=== PATIENT | male | born 1980 | race Two or more races ===

== ENCOUNTER 2025-01-11 16:32 | Inpatient (IN) | payer BC, OTHER ==
[~2025-01-11] VITALS: Ht 172.7 cm; Wt 93.9 kg
--- NOTE | 2025-01-11 17:39 | DVH ---
CLINICAL HISTORY: weakness TECHNIQUE: Helical scanning was performed of the head from the skull base to the vertex. Multiplanar reconstructions were performed. This exam was performed according to our departmental dose optimizat ion program. Up-to-date CT equipment and radiation dose reduction techniques are utilized as appropri ate. CTDI 55 DLP 992 COMPARISON: None FINDINGS: There is no evidence for acute intracranial hemorrhage, acute ischemic changes, mass, mass effect, or extra-axial fluid collection. There is no hydrocephalus or midline shift. There is no effacement of the cerebral sulci and basal subarachnoid cisterns. The damico-white matter differentiation is well kelton ntained. The imaged paranasal sinuses are clear. IMPRESSION: NO ACUTE INTRACRANIAL ABNORMALITY SEEN.
--- NOTE | 2025-01-11 17:41 | DVH ---
EXAM: XY CHEST PORTABLE HISTORY: weakness TECHNIQUE: 1 view of the chest COMPARISON: None FINDINGS/IMPRESSION: LUNGS: No pleural effusion, consolidation, or pneumothorax. MEDIASTINUM: Unremarkable. BONES: No acute osseous abnormality. OTHER: None.
[2025-01-11 17:43] LABS: Hematocrit 53.7 % (41.0-53.0); Hemoglobin 17.8 g/dL (13.5-17.5); Mean Corpuscular Hemoglobin 24.8 pg (28.0-32.0); Mean Corpuscular Volume 74.6 fL (80.0-100.0); Nucleated Red Blood Cells % 0.4 %
[2025-01-11 17:48] LABS: Chloride 107 mmol/L (98-107); Potassium 4.0 mmol/L (3.5-5.1); Sodium 143 mmol/L (136-145)
[2025-01-11 17:49] LABS: Anion Gap 10 (5-15); Carbon Dioxide 26 mmol/L (20-31)
[2025-01-11 17:50] LABS: Calcium 9.1 mg/dL (8.7-10.4)
[2025-01-11 17:54] LABS: Blood Urea Nitrogen 17 mg/dL (9-23); Glucose 98 mg/dL (74-106)
--- NOTE | 2025-01-11 17:56 | ED.PDOC ---
Altered Mental Status HPI Comments 44 year old male presents to the ED with a chief complaint of ALOC onset 3 days. 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 Patient states he is confused, does not remember things. Denies any PMHx as well as head injury, fall, LOC, nausea, vomiting, diarrhea, chest pain, fever, chills, dysuria, hematuria. No other symptoms or modifying factors present at this time. Chief Complaint: Confusion Time Seen by MD: 17:25 Reviewed Notes: Medications, Allergies Allergies: Coded Allergies: NO KNOWN ALLERGIES (Unverified , 01/11/25) Information Source: Patient, Spouse Mode of Arrival: Ambulatory Severity: Moderate Timing: Days Duration: Since onset Prehospital treatment: None Quality: Change in Behavior, Confusion Recent: None History of: None Past Medical History PAST MEDICAL HISTORY: Denies Surgical History: Denies all surgeries Family History Family History: Reviewed,noncontributory to illness, No family hx of Cancer, No family hx of DM, No family hx of Heart lisandra, No family hx of HTN, No family hx ofKidney lisandra, No family hx of Liver lisandra, No family hx of Lung lisandra, No family hx of Stroke Social History Smoker: Non-Smoker Alcohol: Denies ETOH Use Drugs: Denies Drug Use Lives In: Home Constitutional: denies: chills, diaphoresis, fatigue, fever, malaise, sweats, weakness, others EENTM: denies: blurred vision, double vision, ear bleeding, ear discharge, ear drainage, ear pain, ear ringing, eye pain, eye redness, hearing loss, mouth pain, mouth swelling, nasal discharge, nose bleeding, nose congestion, nose pain, photophobia, tearing, throat pain, throat swelling, voice changes, others Respiratory: denies: cough, hemoptysis, orthopnea, SOB at rest, shortness of breath, SOB with excertion, stridor, wheezing, others Cardiovascular: denies: chest pain, dizzy spells, diaphoresis, Dyspnea on exertion, edema, irregular heart beat, left arm pain, lightheadedness, palpitations, PND, syncope, others Gastrointestinal: denies: abdomen distended, abdominal pain, blood streaked bowels, constipated, diarrhea, dysphagia, difficulty swallowing, hematemesis, melena, nausea, poor appetite, poor fluid intake, rectal bleeding, rectal pain, vomiting, others Genitourinary: denies: burning, dysuria, flank pain, frequency, hematuria, incontinence, penile discharge, penile sore, pain, testicle pain, testicle swelling, urgency, others Neurological: reports: others (confused); denies: dizziness, fainting, headache, left sided numbness, left sided weakness, numbness, paresthesia, pre- existing deficit, right sided numbness, right sided weakness, seizure, speech problems, tingling, tremors, weakness Musculoskeletal: denies: back pain, gout, joint pain, joint swelling, muscle pain, muscle stiffness, neck pain, others Integumetry: denies: bruises, change in color, change in hair/nails, dryness, laceration, lesions, lumps, rash, wounds, others Allergic/Immunocompromised: denies: Difficulty Healing, Frequent Infections, Hives, Itching, others Hematologic/Lymphatic: denies: anemia, blood clots, easy bleeding, easy brui sing, swollen glands, others Endocrine: denies: excessive hunger, excessive sweating, excessive thirst, ex cessive urination, flushing, intolerance to cold, intolerance to heat, unexplained weight gain, unexplained weight loss, others Psychiatric: reports: others (confused); denies: anxiety, bipolar disorder, depression, hopeless, panic disorder, schizophrenia, sleepless, suicidal All Other Systems: Reviewed and Negative Physical Exam General Appearance: Normal HEENT: Normal ENT Inspection, Pharynx Normal, TMs Normal Neck: Full Range of Motion, Non-Tender, Normal, Normal Inspection Respiratory: Chest Non-Tender, Lungs Clear, No Accessory Muscle Use, No Respiratory Distress, Normal Breath Sounds Cardiovascular: No Edema, No JVD, No Murmur, No Gallop, Normal Peripheral Pulses, Regular Rate/Rhythm Breast Exam: Deferred Gastrointestinal: No Organomegaly, Non Tender, No Pulsatile Mass, Normal Bowel Sounds, Soft Genitalia: Deferred Pelvic: Deferred Rectal: Deferred Extremities: No calf tenderness, Normal capillary refill, Normal inspection, Normal range of motion, Non-tender, No pedal edema Musculoskeletal : Apperance: Normal Neurologic: Alert, 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 Was a procedure done?: No Differential Diagnosis (ALOC) Differential Diagnosis: Dehydration, Hypoglycemia, Hypoxemia, Seizure, Closed Head Injury, ETOH Intoxication X-Ray, Labs, Meds, VS Vital Signs Date Time Temp Pulse Resp B/P (MAP) Pulse Ox O2 Delivery O2 Flow Rate FiO2 01/11/25 16:37 98.1 89 18 144/96 98 98.1 Lab Test 01/11/25 17:13 Range/Units White Blood Count 4.7 4.4-10.8 10^3/uL Red Blood Count 7.20 H 4.5-5.90 10^6/uL Hemoglobin 17.8 H 13.5-17.5 g/dL Hematocrit 53.7 H 41.0-53.0 % Mean Corpuscular Volume 74.6 L 80.0-100.0 fL Mean Corpuscular Hemoglobin 24.8 L 28.0-32.0 pg Mean Corpuscular Hemoglobin Concent 33.2 32.0-36.0 g/dL Red Cell Distribution Width 18.0 H 11.8-14.3 % Platelet Count 198 140-450 10^3/uL Mean Platelet Volume 7.9 6.9-10.8 fL Neutrophils (%) (Auto) 62.1 37.0-80.0 % Lymphocytes (%) (Auto) 25.5 10.0-50.0 % Monocytes (%) (Auto) 9.1 0.0-12.0 % Eosinophils (%) (Auto) 2.9 0.0-7.0 % Basophils (%) (Auto) 0.4 0.0-2.0 % Neutrophils # (Auto) 2.9 1.6-8.6 10 ^3/uL Lymphocytes # (Auto) 1.2 0.4-5.4 10 ^3/uL Monocytes # (Auto) 0.4 0-1.3 10 ^3/uL Eosinophils # (Auto) 0.1 0-0.8 10 ^3/uL Basophils # (Auto) 0 0-0.2 10 ^3/uL Nucleated Red Blood Cells 0.4 % Sodium Level 143 136-145 mmol/L Potassium Level 4.0 3.5-5.1 mmol/L Chloride Level 107 98-107 mmol/L Carbon Dioxide Level 26 20-31 mmol/L Anion Gap 10 5-15 Blood Urea Nitrogen 17 9-23 mg/dL Creatinine 1.53 H 0.700-1.30 mg/dL Glomerular Filtration Rate Calc 57 >90 mL/min BUN/Creatinine Ratio Pending Serum Glucose 98 74-106 mg/dL Calcium Level 9.1 8.7-10.4 mg/dL Troponin I High Sensitivity 44 </=54 ng/L Plasma/Serum Blood Alcohol < 3.0 <10 mg/dL Time of 1ST Reevaluation: 17:55 Reevaluation 1ST: Unchanged Patient Education/Counseling: Diagnosis, Treatment, Prognosis Family Education/Counseling: Diagnosis, Treatment, Prognosis SEPSIS Sepsis Screen Date sepsis recognized/suspect: Jan 11, 2025 Time Sepsis recognized/suspect: 1636 Recent Procedure: No On Antibiotic Therapy: No Respiratory Rate >20: No Heart Rate >90: No Temp<36 C (96.8 F) or >38.3 C: No SBP <90 or MAP <65 mmHG: No New Acute Mental Status Change: No Is the patient on CPAP, BIPAP,: No Physician Orders Blood Alcohol (01/11/25 16:59) Basic Metabolic Panel (01/11/25 16:59) Troponin-I Hs (01/11/25 16:59) Urinalysis (01/11/25 16:59) Chest Portable (01/11/25 16:59) Head Without Contrast (01/11/25 16:59) Drug Screen (01/11/25 16:59) Troponin-I Hs (01/11/25 17:59) Troponin-I Hs (01/11/25 19:59) Vital Signs Date Time Temp Pulse Resp B/P (MAP) Pulse Ox O2 Delivery O2 Flow Rate FiO2 01/11/25 16:37 98.1 89 18 144/96 98 98.1 Laboratory Tests Test 01/11/25 17:13 White Blood Count 4.7 10^3/uL (4.4-10.8) Departure 1 Departure Time of Disposition: 17:57 (Patient with a worsening altered mental status concerning for TIA versus CVA versus electrolyte abnormality. We will we will admit patient for further workup and expert consultation) Impression: Primary Impression: Acute metabolic encephalopathy Additional Impression: Altered mental status Disposition: 09 ADMITTED INPATIENT Admit to: Med Surg Condition: Serious Critical Care Note Critical Care Time?: Yes Critical care comment: Concern for CVA Authorized and Performed by: Aaron Dejesus MD Total critical care time: Approximately 38 minutes Due to a high probability of clinically significant, life threatening deter ioration, the patient required my highest level of preparedness to intervene emergently and I personally spent this critical care time directly and personally managing the patient. This critical care time included obtaining a history; examining the patient; pulse oximetry; ordering and review of studies; arranging urgent treatment with development of a management plan; evaluation of patient's response to treatment; frequent reassessment; and, discussions with other providers. This critical care time was performed to assess and manage the high probability of imminent, life-threatening deterioration that could result in multi-organ fa ilure. It was exclusive of separately billable procedures and treating other patients and teaching time. Please see my other sections and the rest of the note for further information on patient assessment and treatment. Stability Stability form required: No I personally scribed for AARON DEJESUS MD ([email or web address]) on 01/11/25 at 17:56. Electronically submitted by Glory Sharpe ([email or web address]). AARON DEJESUS MD Jan 11, 2025 17:56
[2025-01-11 17:57] LABS: BUN/Creatinine Ratio 11.1 (10.0-20.0)
[2025-01-11 19:40] VITALS: PULSE 71; RESP 14; O2SAT 96
[2025-01-11 22:08] LABS: Amphetamine Screen, Urine Neg (NEGATIVE); Barbiturate Scree,Urine Neg (NEGATIVE); Benzodiazephine Screen, Urine Neg (NEGATIVE); Cannabinoid Screen, Urine Neg (NEGATIVE); Cocaine Screen, Urine Neg (NEGATIVE); Opiate Scree,Urine Neg (NEGATIVE); Phencyclidine Screen, Urine Neg (NEGATIVE)
[2025-01-11 22:10] LABS: Urine Protein, UAD Negative (Negative)
[2025-01-11 23:15] LABS: Alkaline Phosphatase 51.0 U/L (46-116); Magnesium 2.0 mg/dL (1.6-2.6); Total Protein 7.4 g/dL (5.7-8.2)
[2025-01-11 23:16] LABS: Alanine Aminotransferase 46.0 U/L (7-40); Albumin 4.4 g/dL (3.2-4.8); Bilirubin, Direct 0.1 mg/dL (<0.3); Bilirubin, Total 0.5 mg/dL (0.2-1.0)
[2025-01-11 23:17] LABS: INR 1.08 (0.9-1.15); Partial Thromboplastin Time 29.1 SEC (24.5-34.5); Prothrombin Time 11.4 sec (9.3-11.8)
[2025-01-12] MEDS: SODIUM CHLORIDE 0.9% 1,000 ML IV SCH (02:29)
--- NOTE | 2025-01-12 04:08 | DVHHPRES ---
History of Present Illness Resident Creating Document: LAVINIA CARRION History of Present Illness Mr. Champagne is a 44-year-old male with prior medical history of HIV on Biktarvy (reports undetectable viral), who presents today with chief complaint of confusion. The patient states that for the last 2-3 days he has had malaise, decreases in his memory, difficulty putting words together, and that he fell twice at home due to his "legs giving out on him, "with the most recent fall being last night. Additionally refers febrile sensation for 3 days, daily headaches, dry heaving, and insomnia. He reports he was recently treated for a sinus infection 2 weeks ago. Due to persistence of symptoms, he presented to the Emergency department for medical attention. On evaluation in the ED, patient was hypertensive, with other vital signs within normal range. EKG showed Sinus rhythm with borderline NC prolongation. Initial labs the hemoglobin 17.8 and hematocrit 53.7, and creatinine 1.53. Chest x-ray showed no acute disease. Head CT shows no acute intracranial abnormality seen. The patient was admitted for further workup and monitoring. Infectious disease: HIV Past Medical History Currently on TRT due to low testosterone Past Surgical History: None Family History: None Smoke: No ALCOHOL: rare Drugs: None Lives: with Family Domestic Violence: Neg Review of Systems Review of Systems Constitutional: Refers malaise, Denies weight loss, fever and chills. HEENT: Denies changes in vision and hearing. Respiratory: Denies shortness of breath and cough Cardiovascular: Denies chest discomfort or palpitations GI: Denies abdominal distention, abdominal pain, diarrhea : Denies dysuria and urinary frequency. Musculoskeletal: denies Skin: Denies rash and pruritus. Neurological: Refers decreases in memory and numbness in left hand, denies dizziness headache vision or hearing problems Allergies: Coded Allergies: NO KNOWN ALLERGIES (Unverified , 01/11/25) Medications Current Medications Medications Dose Ordered Sig/Taisha Route Start Time Stop Time Status Last Admin Dose Admin Patient Own Medication 1 DAILY PO 01/12/25 10:00 UNV Ibuprofen 600 mg Q8HP PRN PO 01/12/25 00:45 Ondansetron HCl 4 mg Q4HPRN PRN IV 01/12/25 02:15 Sodium Chloride 1,000 ml @ 100 mls/hr Q10H IV 01/12/25 02:15 01/12/25 02:29 100 MLS/HR Exam Vital Signs Vital Signs Date Time Temp Pulse Resp B/P (MAP) Pulse Ox O2 Delivery O2 Flow Rate FiO2 01/12/25 04:05 65 18 121/84 (96) 93 01/12/25 00:34 98.8 98.8 01/11/25 19:40 Room Air* 0 21 Exam General: The patient alert and oriented in person place and time. Patient following commands HEENT: Normocephalic, atraumatic, normal reactive pupils, EOM intact, pink conjunctiva, pink moist mucous membrane Respiratory/pulmonary: Bilateral chest expansion, no pain on palpation of chest wall, clear lungs bilaterally, vesicular murmurs present in almost all lung dyer, no associated crackles or wheezes. Cardiovascular: Normal RRR, normal S1 and S2, no murmurs Abdomen: Abdomen nondistended, normal bowel sounds, soft, there is no pain to palpation in any of the abdominal quadrants, no palpable masses. Extremities: No deformities, there is no peripheral edema present at the lower extremities, normal pulses Skin: No rashes or pruritus, there is no sacral edema present at this time. Neurological: Intact cranial nerves with no focal neurologic deficits, strength in bilateral upper and lower extremities 5/5, sensation is intact Labs/Xrays Labs Test 01/11/25 22:55 01/11/25 21:00 01/11/25 20:27 01/11/25 17:13 Range/Units Lactic Acid Level 1.1 0.4-2.0 mmol/L Urine Color Yellow Yellow Urine Clarity Clear Clear Urine pH 5.5 5.0-9.0 Urine Specific [place] 1.031 1.001-1.035 Urine Protein Negative Negative Urine Ketones +1 Negative Urine Blood Negative Negative /uL Urine Nitrite Negative Negative Urine Bilirubin Negative Negative Urine Urobilinogen Normal Negative mg/dL Urine Leukocyte Esterase Negative Negative /uL Urine RBC None seen 0 - 3 /hpf Urine Microscopic WBC 1 0-3 /HPF Urine Squamous Epithelial Cells None seen <5 /hpf Urine Bacteria None seen None Seen /hpf Urine Mucus Few None Seen Urine Glucose Normal Normal mg/dL Urine Opiates Screen Neg NEGATIVE Urine Fentanyl Screen Neg NEGATIVE Urine Barbiturates Screen Neg NEGATIVE Urine Phencyclidine Screen Neg NEGATIVE Urine Amphetamines Screen Neg NEGATIVE Urine Benzodiazepines Screen Neg NEGATIVE Urine Cocaine Screen Neg NEGATIVE Urine Cannabinoids Screen Neg NEGATIVE Prothrombin Time 11.4 9.3-11.8 sec Prothrombin Time INR 1.08 0.9-1.15 Activated Partial Thromboplast Time 29.1 24.5-34.5 SEC D-Dimer, Quantitative 0.41 0.0-0.49 mg/L FEU Troponin I High Sensitivity 39 </=54 ng/L White Blood Count 4.7 4.4-10.8 10^3/uL Red Blood Count 7.20 H 4.5-5.90 10^6/uL Hemoglobin 17.8 H 13.5-17.5 g/dL Hematocrit 53.7 H 41.0-53.0 % Mean Corpuscular Volume 74.6 L 80.0-100.0 fL Mean Corpuscular Hemoglobin 24.8 L 28.0-32.0 pg Mean Corpuscular Hemoglobin Concent 33.2 32.0-36.0 g/dL Red Cell Distribution Width 18.0 H 11.8-14.3 % Platelet Count 198 140-450 10^3/uL Mean Platelet Volume 7.9 6.9-10.8 fL Neutrophils (%) (Auto) 62.1 37.0-80.0 % Lymphocytes (%) (Auto) 25.5 10.0-50.0 % Monocytes (%) (Auto) 9.1 0.0-12.0 % Eosinophils (%) (Auto) 2.9 0.0-7.0 % Basophils (%) (Auto) 0.4 0.0-2.0 % Neutrophils # (Auto) 2.9 1.6-8.6 10 ^3/uL Lymphocytes # (Auto) 1.2 0.4-5.4 10 ^3/uL Monocytes # (Auto) 0.4 0-1.3 10 ^3/uL Eosinophils # (Auto) 0.1 0-0.8 10 ^3/uL Basophils # (Auto) 0 0-0.2 10 ^3/uL Nucleated Red Blood Cells 0.4 % Sodium Level 143 136-145 mmol/L Potassium Level 4.0 3.5-5.1 mmol/L Chloride Level 107 98-107 mmol/L Carbon Dioxide Level 26 20-31 mmol/L Anion Gap 10 5-15 Blood Urea Nitrogen 17 9-23 mg/dL Creatinine 1.53 H 0.700-1.30 mg/dL Glomerular Filtration Rate Calc 57 >90 mL/min BUN/Creatinine Ratio 11.1 10.0-20.0 Serum Glucose 98 74-106 mg/dL Hemoglobin A1c 5.7 <5.7 % A1C Calcium Level 9.1 8.7-10.4 mg/dL Phosphorus Level 3.9 2.4-5.1 mg/dL Magnesium Level 2.0 1.6-2.6 mg/dL Total Bilirubin 0.5 0.2-1.0 mg/dL Direct Bilirubin 0.1 <0.3 mg/dL Aspartate Amino Transferase (AST) 38 13-40 U/L Alanine Aminotransferase (ALT) 46 H 7-40 U/L Alkaline Phosphatase 51 46-116 U/L Total Protein 7.4 5.7-8.2 g/dL Albumin 4.4 3.2-4.8 g/dL Vitamin B12 Level 462 211-911 pg/mL Thyroid Stimulating Hormone (TSH) 1.86 0.55-4.78 uIU/mL Plasma/Serum Blood Alcohol < 3.0 <10 mg/dL SEPSIS Sepsis Screen Date sepsis recognized/suspect: Jan 11, 2025 Time Sepsis recognized/suspect: 1939 Recent Procedure: No On Antibiotic Therapy: No Respiratory Rate >20: No Heart Rate >90: No Temp<36 C (96.8 F) or >38.3 C: No SBP <90 or MAP <65 mmHG: No New Acute Mental Status Change: Yes (Forgetfulness since friday) Is the patient on CPAP, BIPAP,: No Physician Orders Electrocardigram (01/11/25 22:39) Complete Blood Count (01/12/25 04:00) Basic Metabolic Panel (01/12/25 04:00) Carotid Duplx W Color Dop (01/12/25 00:45) Brain Head Wo Contrast (01/12/25 00:45) Patients Own Medication (01/12/25 10:00) Ibuprofen Tablet (Motrin Tablet) (01/12/25 00:45) Allergies (01/12/25 00:45) Code Status (01/12/25 00:45) Condition: Stable (01/12/25 00:45) Stat Ekg For Chest Pain (01/12/25 00:45) Notify Md Of Changes From Base (01/12/25 00:45) Emergency Dysrhythmia Protocol (01/12/25 00:45) Rhythm Strips Once Every Shift (01/12/25 00:45) Regular Diet (01/12/25 Breakfast) Cd4/Cd8 Ratio Profile (01/12/25 02:08) Ondansetron Hcl (Zofran) (01/12/25 02:15) Sodium Chloride 0.9% (01/12/25 02:15) Admit (01/12/25 02:11) Echo 2d Mode Cardiac Dop (01/12/25 02:12) Vital Signs Date Time Temp Pulse Resp B/P (MAP) Pulse Ox O2 Delivery O2 Flow Rate FiO2 01/12/25 04:05 65 18 121/84 (96) 93 01/12/25 02:14 61 16 136/92 (107) 93 01/12/25 00:34 98.8 70 19 130/86 (101) 98 98.8 01/12/25 00:30 70 01/11/25 22:02 75 14 113/77 (89) 97 Laboratory Tests Test 01/11/25 17:13 01/11/25 22:55 White Blood Count 4.7 10^3/uL (4.4-10.8) Lactic Acid Level 1.1 mmol/L (0.4-2.0) Medications Medications Dose Ordered Sig/Taisha Route Start Time Stop Time Status Last Admin Dose Admin Sodium Chloride 1,000 ml @ 100 mls/hr Q10H IV 01/12/25 02:15 01/12/25 02:29 100 MLS/HR Assessment/Plan Assessment/Plan Assessment and Plan: Possible Metabolic Encephalopathy, rule out Rule out space occupying lesion due to HIV - Head CT completed with no acute intracranial pathology - UDS negative - Blood alcohol level: <0.3 - NS maintenance 100 cc/hour IV - Zofran 4 mg Q 4 hours p.r.n. IV - ibuprofen 600 mg p.o. Q 8 p.r.n. - Ordered brain MRI Possible CRISTHIAN on CKD likely due to VMN/ hemodynamically mediated - Monitor renal function - Avoid nephrotoxic drugs HIV - Continue Biktarvy - CD4/CD8 ratio pending Obesity. 31.6 kg/m2 - I have counseled the patient on healthy lifestyle modifications. Diet: Regular DVT prophylaxis: Not indicated as patient is ambulatory GI prophylaxis: Not indicated Case discussed with Dr. Yepez Goals of care discussed with the patient for over 25 minutes. Full code. Plan discussed with: Patient, Other (Nurses) My Orders Orders - LAVINIA CARRION RESIDENT Procedure Category Date Status Time Electrocardigram EKG 01/11/25 Logged 22:39 Complete Blood Count LAB 01/12/25 Logged 04:00 Basic Metabolic Panel LAB 01/12/25 Logged 04:00 Carotid Duplx W Color US 01/12/25 Logged DOP 00:45 Brain Head Wo Contrast MRI 01/12/25 Logged 00:45 Patients Own PHA 01/12/25 Pending Medication 10:00 Ibuprofen Tablet PHA 01/12/25 In Process (Motrin Tablet) 00:45 Allergies YOSEF 01/12/25 In Process 00:45 Code Status CODE 01/12/25 Transmitted 00:45 Condition: Stable YOSEF 01/12/25 In Process 00:45 Stat Ekg For Chest [facility] 01/12/25 In Process Pain 00:45 Notify Md Of Changes [facility] 01/12/25 In Process From Base 00:45 Emergency Dysrhythmia [facility] 01/12/25 In Process Protocol 00:45 Rhythm Strips Once [facility] 01/12/25 In Process Every Shift 00:45 Regular Diet DIET 01/12/25 Transmitted Breakfast Date of Service: Jan 12, 2025 Billing Provider: CARLOS YEPEZ MD Common Visit Codes: 06309-[id number] INP/OBS CARE (HIGH) Secondary Visit Codes: [id number] CARE PLAN 30 MINUTES LAVINIA CARRION RESIDENT Jan 12, 2025 04:08 SYBIL SOUZA RESIDENT Jan 12, 2025 06:50
[2025-01-12 04:50] VITALS: BP 116/73; PULSE 64; RESP 18; TEMP 98.8; TEMP 98.9; O2SAT 94
[2025-01-12] MEDS: IBUPROFEN 600 MG TAB PO PRN (05:18)
[2025-01-12 05:27] LABS: Anion Gap 11 (5-15); Carbon Dioxide 25 mmol/L (20-31); Chloride 106 mmol/L (98-107); Potassium 4.1 mmol/L (3.5-5.1); Sodium 142 mmol/L (136-145)
[2025-01-12 05:28] LABS: Calcium 8.8 mg/dL (8.7-10.4)
[2025-01-12 05:33] LABS: BUN/Creatinine Ratio 12.3 (10.0-20.0); Blood Urea Nitrogen 16 mg/dL (9-23); Glucose 93 mg/dL (74-106)
[2025-01-12 05:36] LABS: Hematocrit 54.0 % (41.0-53.0); Hemoglobin 17.7 g/dL (13.5-17.5); Mean Corpuscular Hemoglobin 24.3 pg (28.0-32.0); Mean Corpuscular Volume 74.3 fL (80.0-100.0); Nucleated Red Blood Cells % 0.2 %
[2025-01-12] MEDS ORDERED: BICT1TAB PO (06:12)
[2025-01-12] MEDS: ONDANSETRON HCL 4 MG/2 ML VIAL IV PRN (08:28)
[2025-01-12 08:29] VITALS: BP 131/80; PULSE 67; RESP 12; TEMP 98; O2SAT 94
[2025-01-12] MEDS: BIKTARVY 50-200-25 MG TABLET PO SCH (10:00)
--- NOTE | 2025-01-12 10:16 | DVH ---
Carotid Duplex Clinical History: Eval carotids Comparison: None Technique: Duplex doppler evaluation of the extracranial carotid and vertebral arteries including color doppler and spectral/pulsed waveform analysis was performed. Findings: RIGHT SIDE: The peak systolic velocities are 91 cm/s in the CCA, 117 cm/s in the ICA. The ICA/CCA ratio is 1.3. The external carotid artery is patent with peak systolic velocity of 92 cm/s proximally. There is appropriate antegrade flow in the right vertebral artery. LEFT SIDE: The peak systolic velocities are 99 cm/s in the CCA, 81 cm/s in the ICA. The ICA/CCA ratio is 0.8. The external carotid artery is patent with peak systolic velocity of 69 cm/s proximally. There is appropriate antegrade flow in the left vertebral artery. IMPRESSION: No hemodynamically significant stenosis noted in the right carotid system. No hemodynamically significant stenosis noted in the left carotid system. Reference: Radiology 2003; [id number]. Reference: Radiology 2003; [id number] Normal ICA PSV is <125 cm/sec and no plaque or intimal thickening is visible sonographically addition al criteria include ICA/CCA PSV ratio <2.0 and ICA EDV <40 cm/sec <50% ICA stenosis ICA PSV is <125 cm/sec and plaque or intimal thickening is visible sonographically additional criteria include ICA/CCA PSV ratio <2.0 and ICA EDV <40 cm/sec 50-69% ICA stenosis ICA PSV is 125-230 cm/sec and plaque is visible sonographically additional criter ia include ICA/CCA PSV ratio of 2.0-4.0 and ICA EDV of 40-100 cm/sec 70% ICA stenosis but less than near occlusion ICA PSV is >230 cm/sec and visible plaque and luminal n arrowing are seen at damico-scale and color doppler ultrasound (the higher the doppler parameters lie a hill the threshold of 230 cm/sec, the greater the likelihood of severe disease) additional criteria i nclude ICA/CCA PSV ratio >4 and ICA EDV >100 cm/sec
[2025-01-12] MEDS: LORazepam 2MG/ML-1ML VIAL IV ONE (12:47)
--- NOTE | 2025-01-12 13:38 | DVH ---
PROCEDURE: MRI BRAIN HEAD WO CONTRAST Indication: Altered COMPARISON: 01/11/2025 TECHNIQUE: Multiplanar multisequence images of the brain are obtained. FINDINGS: There is no abnormal diffusion restriction. There is no intracranial hemorrhage. No extra-axial flui d collection, mass effect or midline shift. The ventricles are midline and normal in size. The cister ns are patent. Normal intracranial flow voids are preserved. No abnormal susceptibility signal. The sinuses and mastoids are well pneumatized. The visualized orbits are unremarkable. IMPRESSION: No acute cerebrovascular ischemia.
[2025-01-12 16:54] VITALS: BP 149/92; PULSE 76; RESP 17; TEMP 97.8; O2SAT 98
--- NOTE | 2025-01-12 17:43 | DVHPNRES ---
Progress Note Date Seen: Jan 12, 2025 Resident Creating Document: KIRILL SPEARS RESIDENT Medical Necessity Reason Pt with a Central, PICC or Fol: No Subjective Review of Systems Mr. Champagne is a 44-year-old male with prior medical history of HIV on Biktarvy (reports undetectable viral), who presents today with chief complaint of confusion. The patient states that for the last 2-3 days he has had malaise, decreases in his memory, difficulty putting words together, and that he fell twice at home due to his "legs giving out on him, "with the most recent fall being last night. Additionally refers febrile sensation for 3 days, daily headaches, dry heaving, and insomnia. He reports he was recently treated for a sinus infection 2 weeks ago. Due to persistence of symptoms, he presented to the Emergency department for medical attention. On evaluation in the ED, patient was hypertensive, with other vital signs within normal range. EKG showed Sinus rhythm with borderline [place] prolongation. Initial labs the hemoglobin 17.8 and hematocrit 53.7, and creatinine 1.53. Chest x-ray showed no acute disease. Head CT shows no acute intracranial abnormality seen. Past Medical History-AIDS, Currently on TRT due to low testosterone Past Surgical History: None Family History: None Smoke: No ALCOHOL: rare Drugs: None Lives: with Family Patient was seen today at bedside, labs and chart reviewed. Mini-mental state examination score 28. Patient reported his ID doctor was Dr. Bunn. But he reported he is not familiar with this patient. MRI of the brain no acute intracranial abnormality. Objective vital signs Vital Sign Date Time Temp Pulse Resp B/P (MAP) Pulse Ox O2 Delivery O2 Flow Rate FiO2 01/12/25 08:29 98.0 67 12 131/80 (97) 94 98.0 01/12/25 04:50 Room Air* 0 21 Total Intake and Output 01/11/25 01/11/25 01/12/25 15:00 23:00 07:00 Intake Total 100 ml Balance 100 ml medications Current Medications Medications Dose Ordered Sig/Taisha Route Start Time Stop Time Status Last Admin Dose Admin Patient Own Medication 1 DAILY PO 01/12/25 10:00 Ibuprofen 600 mg Q8HP PRN PO 01/12/25 00:45 01/12/25 16:43 600 MG Ondansetron HCl 4 mg Q4HPRN PRN IV 01/12/25 02:15 01/12/25 08:28 4 MG Sodium Chloride 1,000 ml @ 100 mls/hr Q10H IV 01/12/25 02:15 01/12/25 12:15 100 MLS/HR Examination General examination- not in acute distress HEENT- PEERLA, no acute nasal discharge Cardiovascular- S1-S2 audible, rate and rhythm regular, no murmur Respiratory- CTAB, no wheeze or rhonchi Gastrointestinal-nontender, bowel sound+. Nondistended Musculoskeletal-no acute joint swelling or tenderness or redness Lower extremity- no leg edema Neurological- cranial nerves intact, no acute dysarthria or dysphagia Psychiatry- denies depression or SI or HI Skin- no acute rash or purpura laboratory and microbiology Laboratory Tests 01/12/25 04:37 Test 01/12/25 04:37 Range/Units Serum Glucose 93 74-106 mg/dL Problem List/Assessment/Plan Problem List/Assessment/Plan Assessment and plan # suspected Metabolic Encephalopathy, rule out #Rule out space occupying lesion due to HIV - Head CT completed with no acute intracranial pathology -MRI of the brain negative for acute intracranial abnormality - UDS negative - Blood alcohol level: <0.3 - NS maintenance 100 cc/hour IV - Zofran 4 mg Q 4 hours p.r.n. IV - ibuprofen 600 mg p.o. Q 8 p.r.n. #Possible CRISTHIAN on CKD likely due to VMN/ hemodynamically mediated - Monitor renal function - Avoid nephrotoxic drugs #HIV - Continue Biktarvy - CD4/CD8 ratio pending #Obesity. 31.6 kg/m2 - counseled the patient on healthy lifestyle modifications. Goals of care, Code status full code ; discussed with >15 minutes PUD prophylaxis: Pantoprazole DVT prophylaxis: No acute indication Plan discussed with Dr. Yepez , nursing staff, Total time spent on patient evaluation, chart review, assessment and plan, discussion discussion >35 minutes Plan discussed with: Patient, Other (RN, GIRLFRIEND) My Orders My Orders Orders - KIRILL SPEARS RESIDENT Procedure Category Date Status Time Communication Order ORDERS 01/12/25 Transmitted 08:28 Covid19 Antigen [facility] LAB 01/12/25 Logged Rapid Influenza A&B LAB 01/12/25 Logged 08:58 Date of Service: Jan 12, 2025 Billing Provider: CARLOS YEPEZ MD Common Visit Codes: [id number] INP/OBS CARE(HIGH) KIRILL SPEARS RESIDENT Jan 12, 2025 17:43 CARLOS YEPEZ MD Jan 12, 2025 17:49
[2025-01-12] MEDS: PANTOPRAZOLE 40 MG TAB PO SCH (18:53)
[2025-01-12 20:00] VITALS: PULSE 79
[2025-01-12 20:24] VITALS: PULSE 82; RESP 16
[2025-01-12 21:00] VITALS: BP 132/91; PULSE 72; RESP 18; TEMP 97.7; O2SAT 94
[2025-01-12 21:36] LABS: COVID19 ANTIGEN SOFIA FIA NEGATIVE (NEGATIVE)
[2025-01-13] VITALS (8 sets, daily range): BP systolic 115–136; BP diastolic 83–87; PULSE 51–82; RESP 16–20; TEMP 97.4–98.2; O2SAT 93–99
[2025-01-13 08:04] LABS: Hemoglobin 18.4 g/dL (13.5-17.5)
[2025-01-13 08:07] LABS: Mean Corpuscular Hemoglobin 24.2 pg (28.0-32.0); Mean Corpuscular Volume 75.7 fL (80.0-100.0); Nucleated Red Blood Cells % 0.7 %
[2025-01-13 08:08] LABS: Hematocrit 57.4 % (41.0-53.0)
[2025-01-13 08:25] LABS: Alanine Aminotransferase 32 U/L (7-40); Albumin 3.9 g/dL (3.2-4.8); Alkaline Phosphatase 49 U/L (46-116); Anion Gap 10 (5-15); BUN/Creatinine Ratio 10.9 (10.0-20.0); Bilirubin, Total 0.7 mg/dL (0.2-1.0); Blood Urea Nitrogen 16 mg/dL (9-23); Calcium 8.7 mg/dL (8.7-10.4); Carbon Dioxide 24 mmol/L (20-31); Chloride 106 mmol/L (98-107); Glucose 100 mg/dL (74-106); Magnesium 2.1 mg/dL (1.6-2.6); Potassium 4.5 mmol/L (3.5-5.1); Sodium 140 mmol/L (136-145); Total Protein 6.8 g/dL (5.7-8.2)
--- NOTE | 2025-01-13 12:38 | DVHPNRES ---
Progress Note Date Seen: Jan 13, 2025 Resident Creating Document: KIRILL SPEARS RESIDENT Medical Necessity Reason Pt with a Central, PICC or Fol: No Subjective Review of Systems Mr. Champagne is a 44-year-old male with prior medical history of HIV on Biktarvy (reports undetectable viral), who presents today with chief complaint of confusion. The patient states that for the last 2-3 days he has had malaise, decreases in his memory, difficulty putting words together, and that he fell twice at home due to his "legs giving out on him, "with the most recent fall being last night. Additionally refers febrile sensation for 3 days, daily headaches, dry heaving, and insomnia. He reports he was recently treated for a sinus infection 2 weeks ago. Due to persistence of symptoms, he presented to the Emergency department for medical attention. On evaluation in the ED, patient was hypertensive, with other vital signs within normal range. EKG showed Sinus rhythm with borderline [place] prolongation. Initial labs the hemoglobin 17.8 and hematocrit 53.7, and creatinine 1.53. Chest x-ray showed no acute disease. Head CT shows no acute intracranial abnormality seen. Past Medical History-AIDS, Currently on TRT due to low testosterone Past Surgical History: None Family History: None Smoke: No ALCOHOL: rare Drugs: None Lives: with Family Patient was seen today at bedside, labs and chart reviewed. Ordered infectious disease consult for further evaluation and care. Patient reported feeling better today Objective vital signs Vital Sign Date Time Temp Pulse Resp B/P (MAP) Pulse Ox O2 Delivery O2 Flow Rate FiO2 01/13/25 09:56 97.8 01/13/25 09:00 69 18 130/83 (99) 97 01/12/25 20:24 Room Air* 0 21 Total Intake and Output 01/12/25 01/12/25 01/13/25 15:00 23:00 07:00 Intake Total 0 ml 300 ml Balance 0 ml 300 ml medications Current Medications Medications Dose Ordered Sig/Taisha Route Start Time Stop Time Status Last Admin Dose Admin Patient Own Medication 1 DAILY PO 01/12/25 10:00 Ibuprofen 600 mg Q8HP PRN PO 01/12/25 00:45 01/13/25 09:56 600 MG Ondansetron HCl 4 mg Q4HPRN PRN IV 01/12/25 02:15 01/12/25 08:28 4 MG Pantoprazole Sodium 40 mg DAILY@0600 PO 01/12/25 17:45 01/13/25 09:56 40 MG Examination General examination- not in acute distress HEENT- PEERLA, no acute nasal discharge Cardiovascular- S1-S2 audible, rate and rhythm regular, no murmur Respiratory- CTAB, no wheeze or rhonchi Gastrointestinal-nontender, bowel sound+. Nondistended Musculoskeletal-no acute joint swelling or tenderness or redness Lower extremity- no leg edema Neurological- cranial nerves intact, no acute dysarthria or dysphagia Psychiatry- denies depression or SI or HI Skin- no acute rash or purpura laboratory and microbiology Laboratory Tests 01/13/25 07:43 Test 01/13/25 07:43 Range/Units Serum Glucose 100 74-106 mg/dL Problem List/Assessment/Plan Problem List/Assessment/Plan Assessment and plan # suspected Metabolic Encephalopathy, rule out #Rule out space occupying lesion due to HIV - Head CT completed with no acute intracranial pathology -MRI of the brain negative for acute intracranial abnormality Mini-mental state examination score 28 - UDS negative - Blood alcohol level: <0.3 - NS maintenance 100 cc/hour IV - Zofran 4 mg Q 4 hours p.r.n. IV - ibuprofen 600 mg p.o. Q 8 p.r.n. -ordered infectious disease consult by Dr. Oni Carlos for further evaluation and care #Possible CRISTHIAN on CKD likely due to VMN/ hemodynamically mediated - Monitor renal function - Avoid nephrotoxic drugs #HIV - Continue Biktarvy - CD4/CD8 ratio pending #Obesity. 31.6 kg/m2 - counseled the patient on healthy lifestyle modifications. Goals of care, Code status full code ; discussed with >15 minutes PUD prophylaxis: Pantoprazole DVT prophylaxis: No acute indication Plan discussed with Dr. Yepez , nursing staff, Total time spent on patient evaluation, chart review, assessment and plan, discussion discussion >35 minutes Plan discussed with: Patient, Other (RN) My Orders My Orders Orders - KIRILL SPEARS RESIDENT Procedure Category Date Status Time Pantoprazole Tablet PHA 01/12/25 In Process (Protonix Tablet) 17:45 * Infectious Yenny- Dr. MIRELES 01/13/25 Transmitted Bruce Bunn 11:40 Date of Service: Jan 13, 2025 Billing Provider: CARLOS YEPZE MD Common Visit Codes: [id number] INP/OBS CARE(HIGH) KIRILL SPEARS RESIDENT Jan 13, 2025 12:38 CARLOS YEPEZ MD Jan 13, 2025 20:09
[2025-01-14 01:00] VITALS: BP 126/89; PULSE 63; RESP 18; TEMP 97.6; O2SAT 94
[2025-01-14 05:00] VITALS: BP 132/93; PULSE 65; RESP 18; TEMP 97.5; O2SAT 93
[2025-01-14] MEDS: PANTOPRAZOLE 40 MG TAB PO ONE (06:19)
[2025-01-14 07:07] LABS: Hematocrit 61.0 % (37.5-51.0); Hemoglobin 18.2 g/dL (13.0-17.7); MCH 23.7 pg (26.6-33.0); MCHC 29.8 g/dL (31.5-35.7); MCV 80 fL (79-97); RBC 7.67 x10E6/uL (4.14-5.80); RDW 19.4 % (11.6-15.4); WBC 4.1 x10E3/uL (3.4-10.8)
[2025-01-14 07:30] LABS: Hematocrit 55.6 % (41.0-53.0); Hemoglobin 18.0 g/dL (13.5-17.5); Mean Corpuscular Hemoglobin 24.4 pg (28.0-32.0); Mean Corpuscular Volume 75.3 fL (80.0-100.0); Nucleated Red Blood Cells % 0.4 %
[2025-01-14 07:44] LABS: Alanine Aminotransferase 25 U/L (7-40); Albumin 3.7 g/dL (3.2-4.8); Alkaline Phosphatase 46 U/L (46-116); Anion Gap 9 (5-15); BUN/Creatinine Ratio 12.6 (10.0-20.0); Blood Urea Nitrogen 19 mg/dL (9-23); Calcium 8.8 mg/dL (8.7-10.4); Carbon Dioxide 26 mmol/L (20-31); Glucose 103 mg/dL (74-106); Magnesium 2.1 mg/dL (1.6-2.6); Potassium 4.3 mmol/L (3.5-5.1); Sodium 143 mmol/L (136-145); Total Protein 6.4 g/dL (5.7-8.2)
[2025-01-14 07:45] LABS: Bilirubin, Total 0.4 mg/dL (0.2-1.0)
[2025-01-14 07:46] LABS: Chloride 108 mmol/L (98-107)
[2025-01-14 08:00] VITALS: PULSE 78; PULSE 86; RESP 18; O2SAT 95
[2025-01-14 08:50] VITALS: BP 137/85; PULSE 70; RESP 18; TEMP 97.7; O2SAT 94
[2025-01-14 10:07] LABS: CD4/CD8 Ratio 0.85 (0.92-3.72)
--- NOTE | 2025-01-14 11:19 | DVHCONRES ---
Date Seen: Jan 14, 2025 Resident Creating Document: FARHAT BOWDEN RESIDENT Referring Physician Carola Reason for Consultation History of HIV History of Present Illness This is a 44-year-old male with past medical history of HIV diagnosed three years ago, patient states that he has been compliant with his medication Biktarvy (patient states that he is sexually active and uses no protection with her finance). Patient also has a history of testosterone use for training endurance. The patient presented to the ED with chief complaint of slight confusion, decrease in short memory finding difficulty putting words together. Patient also reported that recently has been feeling weakness and that his bilateral legs are giving up having a fall denied that he came to the ED. tracey nt also reported recent daily headaches and insomnia. Patient reported a recent sinus infection two weeks back that he was treated himself empirically with ibuprofen. Patient states that the sinus infection cleared. Upon admission, patient was slightly hypertensive but otherwise labs were grossly unremarkable. Initial chest x-ray was grossly unremarkable with no evidence of clear consolidations. Head CT was grossly unremarkable as well and brain MRI was normal. Carotid Doppler ultrasound showed no significant stenosis in neither right or left carotid systems. We will order viral load, CD4 coun 524, CD4 percentage of 40.3. Patient is compliant with bictarvy. Past Medical History HIV diagnosed three years ago, patient states that he has been compliant with his medication Biktarvy (patient states that he is sexually active and uses no protection with her finance). Patient also has a history of testosterone use for training endurance Past Surgical History Denies Family History: Diabetes mellitus (DM) Hypertension Family History Noncontributory Social History Denies alcohol, drug intake or cigarette smoking Allergies: Coded Allergies: NO KNOWN ALLERGIES (Unverified , 01/11/25) Home Meds Reported Medications Xtladaugrpm-Iruihtlcuedvy-Vmst (Biktarvy 50-200-25 mg) 1 Tab Tab, 1 TAB PO, TAB 01/12/25 Review of Systems ROS Constitutional: Denies weight loss, fever and chills. HEENT: Denies changes in vision and hearing. Respiratory: Denies shortness of breath and cough Cardiovascular: Denies chest discomfort or palpitations GI: Denies abdominal pain, nausea, vomiting and diarrhea. : Denies dysuria and urinary frequency. Musculoskeletal: Denies myalgias and joint pain Skin: Denies rash and pruritus. Neurological: Denies dizziness, headache, vision or hearing problems Vital Signs Vital Signs Date Time Temp Pulse Resp B/P (MAP) Pulse Ox O2 Delivery O2 Flow Rate FiO2 01/14/25 08:50 97.7 70 18 137/85 (102) 94 97.7 01/14/25 08:00 Room Air* 0 21 Physical Exam Physical Examination General: Patient alert and oriented in person, place and time. Patient following commands. HEENT: Normocephalic, atraumatic, moist mucous membranes Respiratory/pulmonary: Clear lungs bilaterally, vesicular murmurs present in almost all lung dyer, no associated crackles or wheezes. Cardiovascular: Normal heart sounds S1 and S2 with no associated murmurs Abdomen: Abdomen nondistended, there is no pain to palpation in any of the abdominal quadrants, no palpable masses. Extremities: There is no peripheral edema present at the lower extremities. Skin: No rashes or pruritus, there is no sacral edema present at this time. Neurological: Intact cranial nerves with no focal neurologic deficits Labs/Diagnostic Data Labs Test 01/14/25 06:42 01/12/25 20:05 01/12/25 08:04 01/12/25 04:37 Range/Units White Blood Count 4.7 4.4-10.8 10^3/uL Red Blood Count 7.38 H 4.5-5.90 10^6/uL Hemoglobin 18.0 H 13.5-17.5 g/dL Hematocrit 55.6 H 41.0-53.0 % Mean Corpuscular Volume 75.3 L 80.0-100.0 fL Mean Corpuscular Hemoglobin 24.4 L 28.0-32.0 pg Mean Corpuscular Hemoglobin Concent 32.3 32.0-36.0 g/dL Red Cell Distribution Width 18.2 H 11.8-14.3 % Platelet Count 180 140-450 10^3/uL Mean Platelet Volume 8.2 6.9-10.8 fL Neutrophils (%) (Auto) 52.6 37.0-80.0 % Lymphocytes (%) (Auto) 25.2 10.0-50.0 % Monocytes (%) (Auto) 12.2 H 0.0-12.0 % Eosinophils (%) (Auto) 9.5 H 0.0-7.0 % Basophils (%) (Auto) 0.5 0.0-2.0 % Neutrophils # (Auto) 2.4 1.6-8.6 10 ^3/uL Lymphocytes # (Auto) 1.2 0.4-5.4 10 ^3/uL Monocytes # (Auto) 0.6 0-1.3 10 ^3/uL Eosinophils # (Auto) 0.4 0-0.8 10 ^3/uL Basophils # (Auto) 0 0-0.2 10 ^3/uL Nucleated Red Blood Cells 0.4 % Sodium Level 143 136-145 mmol/L Potassium Level 4.3 3.5-5.1 mmol/L Chloride Level 108 H 98-107 mmol/L Carbon Dioxide Level 26 20-31 mmol/L Anion Gap 9 5-15 Blood Urea Nitrogen 19 9-23 mg/dL Creatinine 1.51 H 0.700-1.30 mg/dL Glomerular Filtration Rate Calc 58 >90 mL/min BUN/Creatinine Ratio 12.6 10.0-20.0 Serum Glucose 103 74-106 mg/dL Calcium Level 8.8 8.7-10.4 mg/dL Magnesium Level 2.1 1.6-2.6 mg/dL Total Bilirubin 0.4 0.2-1.0 mg/dL Aspartate Amino Transferase (AST) 19 13-40 U/L Alanine Aminotransferase (ALT) 25 7-40 U/L Alkaline Phosphatase 46 46-116 U/L Total Protein 6.4 5.7-8.2 g/dL Albumin 3.7 3.2-4.8 g/dL Influenza Type A Antigen Negative Negative Influenza Type B Antigen Negative Negative SARS-CoV-2 Antigen (Rapid) Negative NEGATIVE Ammonia 26 11-32 umol/L Absolute Neutrophils (auto) 2.1 1.4-7.0 x10E3/uL Absolute Lymphocytes (auto) 1.3 0.7-3.1 x10E3/uL Absolute Monocytes (auto) 0.4 0.1-0.9 x10E3/uL Absolute Eosinophils (auto) 0.3 0.0-0.4 x10E3/uL Absolute Basophils (auto) 0.0 0.0-0.2 x10E3/uL Immature Granulocytes % 0 Not Estab. % Immature Granulocytes # 0 0.0-0.1 x10E3/uL Immature Blood Cells . Hematology Comments . Percent CD4 Cells 40.3 30.8-58.5 % Absolute CD4 Count 576 112-4635 /uL T-Lymphocyte CD4/CD8 Ratio 0.85 L 0.92-3.72 Percent CD8 Cells 47.5 H 12.0-35.5 % Absolute CD8 Count 618 109-897 /uL Test 01/11/25 22:55 01/11/25 21:00 01/11/25 20:27 01/11/25 17:13 Range/Units Lactic Acid Level 1.1 0.4-2.0 mmol/L Urine Color Yellow Yellow Urine Clarity Clear Clear Urine pH 5.5 5.0-9.0 Urine Specific [place] 1.031 1.001-1.035 Urine Protein Negative Negative Urine Ketones +1 Negative Urine Blood Negative Negative /uL Urine Nitrite Negative Negative Urine Bilirubin Negative Negative Urine Urobilinogen Normal Negative mg/dL Urine Leukocyte Esterase Negative Negative /uL Urine RBC None seen 0 - 3 /hpf Urine Microscopic WBC 1 0-3 /HPF Urine Squamous Epithelial Cells None seen <5 /hpf Urine Bacteria None seen None Seen /hpf Urine Mucus Few None Seen Urine Glucose Normal Normal mg/dL Urine Opiates Screen Neg NEGATIVE Urine Fentanyl Screen Neg NEGATIVE Urine Barbiturates Screen Neg NEGATIVE Urine Phencyclidine Screen Neg NEGATIVE Urine Amphetamines Screen Neg NEGATIVE Urine Benzodiazepines Screen Neg NEGATIVE Urine Cocaine Screen Neg NEGATIVE Urine Cannabinoids Screen Neg NEGATIVE Prothrombin Time 11.4 9.3-11.8 sec Prothrombin Time INR 1.08 0.9-1.15 Activated Partial Thromboplast Time 29.1 24.5-34.5 SEC D-Dimer, Quantitative 0.41 0.0-0.49 mg/L FEU Troponin I High Sensitivity 39 </=54 ng/L Hemoglobin A1c 5.7 <5.7 % A1C Phosphorus Level 3.9 2.4-5.1 mg/dL Direct Bilirubin 0.1 <0.3 mg/dL Vitamin B12 Level 462 211-911 pg/mL Thyroid Stimulating Hormone (TSH) 1.86 0.55-4.78 uIU/mL Plasma/Serum Blood Alcohol < 3.0 <10 mg/dL Assessment Assessment/Plan Acute metabolic encephalopathy, resolved HIV infection Possible CRISTHIAN on CKD likely due to VMN Plan -Ordered Viral load -CD4 count 524, CD4 percentage 40.3, T lymphocytes CD4/CD8 ratio 0.85 and absolute CD8 count 618 -Continue Bictarky (patient compliant with his medication) -Ordered treponema pallidum abs, RPR, toxoplasma abs. -Wait for neurology evaluation to determine need for lumbar puncture to check for HIV, cryptococcus and other possible etiologies -follow-up with ID as an outpatient Goals of care discussed with the patient at bedside, full code Plan discussed with Dr. Bunn Plan discussed with: Patient FARHAT BOWDEN RESIDENT Jan 14, 2025 11:19
--- NOTE | 2025-01-14 12:31 | DVHPNRES ---
Progress Note Date Seen: Jan 14, 2025 Resident Creating Document: KIRILL SPEARS RESIDENT Medical Necessity Reason Pt with a Central, PICC or Fol: No Subjective Review of Systems Mr. Champagne is a 44-year-old male with prior medical history of HIV on Biktarvy (reports undetectable viral), who presents today with chief complaint of confusion. The patient states that for the last 2-3 days he has had malaise, decreases in his memory, difficulty putting words together, and that he fell twice at home due to his "legs giving out on him, "with the most recent fall being last night. Additionally refers febrile sensation for 3 days, daily headaches, dry heaving, and insomnia. He reports he was recently treated for a sinus infection 2 weeks ago. Due to persistence of symptoms, he presented to the Emergency department for medical attention. On evaluation in the ED, patient was hypertensive, with other vital signs within normal range. EKG showed Sinus rhythm with borderline [place] prolongation. Initial labs the hemoglobin 17.8 and hematocrit 53.7, and creatinine 1.53. Chest x-ray showed no acute disease. Head CT shows no acute intracranial abnormality seen. Past Medical History-AIDS, Currently on TRT due to low testosterone Past Surgical History: None Family History: None Smoke: No ALCOHOL: rare Drugs: None Lives: with Family Patient was seen today at bedside, labs and chart reviewed. -CD4 count 524, CD4 percentage 40.3, T lymphocytes CD4/CD8 ratio 0.85 and absolute CD8 count 618. Patient reported headache. Patient was seen by infectious disease, recommended for Viral load, treponema pallidum abs, RPR, toxoplasma abs. Wait for neurology evaluation to determine need for lumbar puncture to check for HIV, cryptococcus and other possible etiologies, Continue Bictarvy, follow-up with ID as an outpatien. Treponema pallidum reactive A. Objective vital signs Vital Sign Date Time Temp Pulse Resp B/P (MAP) Pulse Ox O2 Delivery O2 Flow Rate FiO2 01/14/25 08:50 97.7 70 18 137/85 (102) 94 97.7 01/14/25 08:00 Room Air* 0 21 Total Intake and Output 01/13/25 01/13/25 01/14/25 15:00 23:00 07:00 Intake Total 1400 ml 100 ml Balance 1400 ml 100 ml medications Current Medications Medications Dose Ordered Sig/Taisha Route Start Time Stop Time Status Last Admin Dose Admin Patient Own Medication 1 DAILY PO 01/12/25 10:00 01/13/25 17:36 1 Ibuprofen 600 mg Q8HP PRN PO 01/12/25 00:45 01/14/25 08:48 600 MG Ondansetron HCl 4 mg Q4HPRN PRN IV 01/12/25 02:15 01/12/25 08:28 4 MG Pantoprazole Sodium 40 mg DAILY@0600 PO 01/12/25 17:45 01/13/25 09:56 40 MG Examination General examination- not in acute distress HEENT- PEERLA, no acute nasal discharge Cardiovascular- S1-S2 audible, rate and rhythm regular, no murmur Respiratory- CTAB, no wheeze or rhonchi Gastrointestinal-nontender, bowel sound+. Nondistended Musculoskeletal-no acute joint swelling or tenderness or redness Lower extremity- no leg edema Neurological- cranial nerves intact, no acute dysarthria or dysphagia Psychiatry- denies depression or SI or HI Skin- no acute rash or purpura laboratory and microbiology Laboratory Tests 01/14/25 06:42 Test 01/14/25 06:42 Range/Units Serum Glucose 103 74-106 mg/dL Problem List/Assessment/Plan Problem List/Assessment/Plan Assessment and plan-Treponema pallidum reactive A. Plan is to do a lumbar puncture tomorrow morning for CSF study. # suspected Metabolic Encephalopathy, rule out #Rule out space occupying lesion due to HIV - Head CT completed with no acute intracranial pathology -MRI of the brain negative for acute intracranial abnormality -Mini-mental state examination score 28 -Treponema pallidum reactive A - UDS negative - Blood alcohol level: <0.3 - Zofran 4 mg Q 4 hours p.r.n. IV - ibuprofen 600 mg p.o. Q 8 p.r.n. -CD4 count 524, CD4 percentage 40.3, T lymphocytes CD4/CD8 ratio 0.85 and absolute CD8 count 618 -seen by infectious disease,recommended for Viral load, treponema pallidum abs, RPR, toxoplasma abs. Wait for neurology evaluation to determine need for lumbar puncture to check for HIV, cryptococcus and other possible etiologies, Continue Bictarvy, follow-up with ID as an outpatien -plan is to do a lumbar puncture tomorrow morning for CSF study. #Possible CRISTHIAN on CKD likely due to VMN/ hemodynamically mediated - Monitor renal function - Avoid nephrotoxic drugs -oral hydration #HIV - Continue Biktarvy - status post ID consult #Obesity. 31.6 kg/m2 - counseled the patient on healthy lifestyle modifications. Goals of care, Code status full code ; discussed with >15 minutes PUD prophylaxis: Pantoprazole DVT prophylaxis: No acute indication, patient ambulating Plan discussed with Dr. Jones , nursing staff, Total time spent on patient evaluation, chart review, assessment and plan, discussion discussion >35 minutes Plan discussed with: Patient, Other (RN) Date of Service: Jan 14, 2025 Billing Provider: KIRILL SPEARS Common Visit Codes: [id number] INP/OBS CARE(HIGH) KIRILL SPEARS Jan 14, 2025 12:31 CARLOS JONES MD Jan 14, 2025 19:26
[2025-01-14 12:50] VITALS: BP 133/82; PULSE 69; RESP 18; TEMP 97.7; O2SAT 93
[2025-01-14] MEDS: BIKTARVY 50-200-25 MG TABLET PO ONE (14:44)
[2025-01-14 17:00] VITALS: BP 139/88; PULSE 65; RESP 18; TEMP 97.9; O2SAT 92
[2025-01-15 14:34] LABS: RAPID PLASMA REAGIN QUANT 1:1 Titer (NONREACTIVE)
--- NOTE | 2025-01-16 15:53 | DVHDSRES ---
Discharge Summary Date of Admission Resident Creating Document: KIRILL SPEARS RESIDENT Jan 12, 2025 at 00:45 Date of Discharge: Jan 14, 2025 Admitting Diagnosis Suspected acute metabolic encephalopathy Labs/Diagnostic Data: Laboratory Results Test 01/14/25 13:11 01/14/25 06:42 01/12/25 20:05 01/12/25 08:04 Rapid Plasma Reagin Titer 1:1 Titer (NONREACTIVE) Rapid Plasma Reagin Reactive (NONREACTIVE) Treponema pallidum Antibody Reactive (Negative) White Blood Count 4.7 10^3/uL (4.4-10.8) Red Blood Count 7.38 10^6/uL (4.5-5.90) Hemoglobin 18.0 g/dL (13.5-17.5) Hematocrit 55.6 % (41.0-53.0) Mean Corpuscular Volume 75.3 fL (80.0-100.0) Mean Corpuscular Hemoglobin 24.4 pg (28.0-32.0) Mean Corpuscular Hemoglobin Concent 32.3 g/dL (32.0-36.0) Red Cell Distribution Width 18.2 % (11.8-14.3) Platelet Count 180 10^3/uL (140-450) Mean Platelet Volume 8.2 fL (6.9-10.8) Neutrophils (%) (Auto) 52.6 % (37.0-80.0) Lymphocytes (%) (Auto) 25.2 % (10.0-50.0) Monocytes (%) (Auto) 12.2 % (0.0-12.0) Eosinophils (%) (Auto) 9.5 % (0.0-7.0) Basophils (%) (Auto) 0.5 % (0.0-2.0) Neutrophils # (Auto) 2.4 10 ^3/uL (1.6-8.6) Lymphocytes # (Auto) 1.2 10 ^3/uL (0.4-5.4) Monocytes # (Auto) 0.6 10 ^3/uL (0-1.3) Eosinophils # (Auto) 0.4 10 ^3/uL (0-0.8) Basophils # (Auto) 0 10 ^3/uL (0-0.2) Nucleated Red Blood Cells 0.4 % Sodium Level 143 mmol/L (136-145) Potassium Level 4.3 mmol/L (3.5-5.1) Chloride Level 108 mmol/L (98-107) Carbon Dioxide Level 26 mmol/L (20-31) Anion Gap 9 (5-15) Blood Urea Nitrogen 19 mg/dL (9-23) Creatinine 1.51 mg/dL (0.700-1.30) Glomerular Filtration Rate Calc 58 mL/min (>90) BUN/Creatinine Ratio 12.6 (10.0-20.0) Serum Glucose 103 mg/dL (74-106) Calcium Level 8.8 mg/dL (8.7-10.4) Magnesium Level 2.1 mg/dL (1.6-2.6) Total Bilirubin 0.4 mg/dL (0.2-1.0) Aspartate Amino Transferase (AST) 19 U/L (13-40) Alanine Aminotransferase (ALT) 25 U/L (7-40) Alkaline Phosphatase 46 U/L (46-116) Total Protein 6.4 g/dL (5.7-8.2) Albumin 3.7 g/dL (3.2-4.8) Influenza Type A Antigen Negative (Negative) Influenza Type B Antigen Negative (Negative) SARS-CoV-2 Antigen (Rapid) Negative (NEGATIVE) Ammonia 26 umol/L (11-32) Test 01/12/25 04:37 01/11/25 22:55 01/11/25 21:00 01/11/25 20:27 Absolute Neutrophils (auto) 2.1 x10E3/uL (1.4-7.0) Absolute Lymphocytes (auto) 1.3 x10E3/uL (0.7-3.1) Absolute Monocytes (auto) 0.4 x10E3/uL (0.1-0.9) Absolute Eosinophils (auto) 0.3 x10E3/uL (0.0-0.4) Absolute Basophils (auto) 0.0 x10E3/uL (0.0-0.2) Immature Granulocytes % 0 % (Not Estab.) Immature Granulocytes # 0 x10E3/uL (0.0-0.1) Immature Blood Cells (.) Hematology Comments (.) Percent CD4 Cells 40.3 % (30.8-58.5) Absolute CD4 Count 524 /uL (359-1519) T-Lymphocyte CD4/CD8 Ratio 0.85 (0.92-3.72) Percent CD8 Cells 47.5 % (12.0-35.5) Absolute CD8 Count 618 /uL (109-897) Lactic Acid Level 1.1 mmol/L (0.4-2.0) Urine Color Yellow (Yellow) Urine Clarity Clear (Clear) Urine pH 5.5 (5.0-9.0) Urine Specific Ephraim 1.031 (1.001-1.035) Urine Protein Negative (Negative) Urine Ketones +1 (Negative) Urine Blood Negative /uL (Negative) Urine Nitrite Negative (Negative) Urine Bilirubin Negative (Negative) Urine Urobilinogen Normal mg/dL (Negative) Urine Leukocyte Esterase Negative /uL (Negative) Urine RBC None seen /hpf (0 - 3) Urine Microscopic WBC 1 /HPF (0-3) Urine Squamous Epithelial Cells None seen /hpf (<5) Urine Bacteria None seen /hpf (None Seen) Urine Mucus Few (None Seen) Urine Glucose Normal mg/dL (Normal) Urine Opiates Screen Neg (NEGATIVE) Urine Fentanyl Screen Neg (NEGATIVE) Urine Barbiturates Screen Neg (NEGATIVE) Urine Phencyclidine Screen Neg (NEGATIVE) Urine Amphetamines Screen Neg (NEGATIVE) Urine Benzodiazepines Screen Neg (NEGATIVE) Urine Cocaine Screen Neg (NEGATIVE) Urine Cannabinoids Screen Neg (NEGATIVE) Prothrombin Time 11.4 sec (9.3-11.8) Prothrombin Time INR 1.08 (0.9-1.15) Activated Partial Thromboplast Time 29.1 SEC (24.5-34.5) D-Dimer, Quantitative 0.41 mg/L FEU (0.0-0.49) Troponin I High Sensitivity 39 ng/L (</=54) Test 01/11/25 17:13 Hemoglobin A1c 5.7 % A1C (<5.7) Phosphorus Level 3.9 mg/dL (2.4-5.1) Direct Bilirubin 0.1 mg/dL (<0.3) Vitamin B12 Level 462 pg/mL (211-911) Thyroid Stimulating Hormone (TSH) 1.86 uIU/mL (0.55-4.78) Plasma/Serum Blood Alcohol < 3.0 mg/dL (<10) Other Laboratory Tests 01/14/25 06:42 Brief Hx & Hospital Course: Mr. Mar is a 44-year-old male with prior medical history of HIV on Biktarvy (reports undetectable viral), who presents today with chief complaint of confusion. The patient states that for the last 2-3 days he has had malaise, decreases in his memory, difficulty putting words together, and that he fell twice at home due to his "legs giving out on him, "with the most recent fall being last night. Additionally refers febrile sensation for 3 days, daily headaches, dry heaving, and insomnia. He reports he was recently treated for a sinus infection 2 weeks ago. Due to persistence of symptoms, he presented to the Emergency department for medical attention. On evaluation in the ED, patient was hypertensive, with other vital signs within normal range. EKG showed Sinus rhythm with borderline [place] prolongation. Initial labs the hemoglobin 17.8 and hematocrit 53.7, and creatinine 1.53. Chest x-ray showed no acute disease. Head CT shows no acute intracranial abnormality seen. Patient was being treated conservatively during hospital course.-CD4 count 524, CD4 percentage 40.3, T lymphocytes CD4/CD8 ratio 0.85 and absolute CD8 count 618. Patient reported headache. Patient was seen by infectious disease, recommended for Viral load, treponema pallidum abs, RPR, toxoplasma abs. Wait for neurology evaluation to determine need for lumbar puncture to check for HIV, cryptococcus and other possible etiologies, Continue Bictarvy, follow-up with ID as an outpatien. Treponema pallidum reactive A. Plan of the care was discussed with the patient but patient left AMA. Patient's condition was undetermined on discharge. Operations or Procedures [place] [address] Ph: [phone] DIAGNOSTIC IMAGING Diagnostic Imaging Report : [id number] Signed PATIENT: CLIVE MARCCT: [id number] UNIT: [id number] : 1980 LOC: ER ROOM / BED: / AGE / SEX: 44 / M ADM STATUS: REG ER SERVICE 2251 ORDERING PHYSICIAN: AARON VILLA MD PROCEDURE(s): CXRP - CHEST PORTABLE REASON: weakness ORDER NUMBER(s): [id number], ACCESSION NUMBER(s): [id number] EXAM: XY CHEST PORTABLE HISTORY: weakness TECHNIQUE: 1 view of the chest COMPARISON: None FINDINGS/IMPRESSION: LUNGS: No pleural effusion, consolidation, or pneumothorax. MEDIASTINUM: Unremarkable. BONES: No acute osseous abnormality. OTHER: None. ATED BY: INDRA LEBRON MD DICTATED DATE/TIME: 01/11/251738 SIGNED BY: INDRA LEBRON MD SIGNED DATE/TIME: 01/11/251738 CC: [place] [address] Ph: [phone] DIAGNOSTIC IMAGING Diagnostic Imaging Report : [id number] Signed PATIENT: CLIVE MARCCT: [id number] UNIT: [id number] : 1980 LOC: ER ROOM / BED: / AGE / SEX: 44 / M ADM STATUS: REG ER SERVICE 58 ORDERING PHYSICIAN: AARON VILLA MD PROCEDURE(s): HWOCT - HEAD WITHOUT CONTRAST REASON: weakness ORDER NUMBER(s): [id number], ACCESSION NUMBER(s): [id number] CLINICAL HISTORY: weakness TECHNIQUE: Helical scanning was performed of the head from the skull base to the vertex. Multiplanar reconstructions were performed. This exam was performed according to our departmental dose optimization program. Up-to-date CT equipment and radiation dose reduction techniques are utilized as appropriate. CTDI 55 DLP 992 COMPARISON: None FINDINGS: There is no evidence for acute intracranial hemorrhage, acute ischemic changes, mass, mass effect, or extra-axial fluid collection. There is no hydrocephalus or midline shift. There is no effacement of the cerebral sulci and basal subarachnoid cisterns. The damico-white matter differentiation is well maintained. The imaged paranasal sinuses are clear. IMPRESSION: NO ACUTE INTRACRANIAL ABNORMALITY SEEN. ATED BY: RAMON CLAYTON MD DICTATED DATE/TIME: 01/11/251735 SIGNED BY: RAMON CLAYTON MD SIGNED DATE/TIME: 01/11/251735 CC: [address] [id number] Ph: [phone] DIAGNOSTIC IMAGING Diagnostic Imaging Report : [id number] Signed PATIENT: CLIVE MARCCT: [id number] UNIT: [id number] : 1980 LOC: OVERFLOW ROOM / BED: [address] [place] [address] A AGE / SEX: 44 / M ADM STATUS: ADM IN SERVICE 0045 ORDERING PHYSICIAN: LAVINIA CARRION PROCEDURE(s): MBHL - BRAIN HEAD WO CONTRAST REASON: Altered ORDER NUMBER(s): [id number], ACCESSION NUMBER(s): [id number] PROCEDURE: MRI BRAIN HEAD WO CONTRAST Indication: Altered COMPARISON: 01/11/2025 TECHNIQUE: Multiplanar multisequence images of the brain are obtained. FINDINGS: There is no abnormal diffusion restriction. There is no intracranial hemorrhage. No extra-axial fluid collection, mass effect or midline shift. The ventricles are midline and normal in size. The cisterns are patent. Normal intracranial flow voids are preserved. No abnormal susceptibility signal. The sinuses and mastoids are well pneumatized. The visualized orbits are unremarkable. IMPRESSION: No acute cerebrovascular ischemia. ATED BY: MARIAMA RINCON MD DICTATED DATE/TIME: 01/12/251339 SIGNED BY: MARIAMA RINCON MD SIGNED DATE/TIME: 01/12/25 134 CC: [place] [address] Ph: [phone] DIAGNOSTIC IMAGING Diagnostic Imaging Report : [id number] Signed PATIENT: CLIVE MARCCT: [id number] UNIT: [id number] : 1980 LOC: OVERFLOW ROOM / BED: [address] [place] [address] AGE / SEX: 44 / M ADM STATUS: ADM IN SERVICE ORDERING PHYSICIAN: LAVINIA CARRION PROCEDURE(s): CARCL - CAROTID DUPLX W COLOR DOP REASON: Eval carotids ORDER NUMBER(s): [id number], ACCESSION NUMBER(s): [id number] Carotid Duplex Clinical History: Eval carotids Comparison: None Technique: Duplex doppler evaluation of the extracranial carotid and vertebral arteries including color doppler and spectral/pulsed waveform analysis was performed. Findings: RIGHT SIDE: The peak systolic velocities are 91 cm/s in the CCA, 117 cm/s in the ICA. The ICA/CCA ratio is 1.3. The external carotid artery is patent with peak systolic velocity of 92 cm/s proximally. There is appropriate antegrade flow in the right vertebral artery. LEFT SIDE: The peak systolic velocities are 99 cm/s in the CCA, 81 cm/s in the ICA. The ICA/CCA ratio is 0.8. The external carotid artery is patent with peak systolic velocity of 69 cm/s proximally. There is appropriate antegrade flow in the left vertebral artery. IMPRESSION: No hemodynamically significant stenosis noted in the right carotid system. No hemodynamically significant stenosis noted in the left carotid system. Reference: Radiology 2003; 229:340-346. Reference: Radiology 2003; 229:340-346 Normal ICA PSV is <125 cm/sec and no plaque or intimal thickening is visible sonographically additional criteria include ICA/CCA PSV ratio <2.0 and ICA EDV <40 cm/sec <50% ICA stenosis ICA PSV is <125 cm/sec and plaque or intimal thickening is visible sonographically additional criteria include ICA/CCA PSV ratio <2.0 and ICA EDV <40 cm/sec 50-69% ICA stenosis ICA PSV is 125-230 cm/sec and plaque is visible sonographically additional criteria include ICA/CCA PSV ratio of 2.0-4.0 and ICA EDV of 40-100 cm/sec 70% ICA stenosis but less than near occlusion ICA PSV is >230 cm/sec and visible plaque and luminal narrowing are seen at damico-scale and color doppler ultrasound (the higher the doppler parameters lie above the threshold of 230 cm/sec, the greater the likelihood of severe disease) additional criteria include ICA/CCA PSV ratio >4 and ICA EDV >100 cm/sec ATED BY: RAMON CLAYTON MD DICTATED DATE/TIME: 01/12/25 1013 SIGNED BY: RAMON CLAYTON MD SIGNED DATE/TIME: 01/12/25 1013 CC: Condition at Discharge: Undetermined Final Diagnosis/Problems List suspected Metabolic Encephalopathy, rule out #Rule out space occupying lesion due to HIV #Possible CRISTHIAN on CKD likely due to VMN/ hemodynamically mediated # suspected neurosyphilis under evaluation #HIV #Obesity. 31.6 kg/m2 Discharge Disposition: AMA Discharge Instruct/Medications Follow Up/Referral: Patient left AMA Medications: Patient left AMA Miscellaneous Medications Mlarnxpigud-Tyedpdaeddmvz-Braz (Biktarvy 50-200-25 mg), 1 TAB PO, (Reported) Discharge Statement: "Patient was advised to return to the ER or call 911 if any headaches, dizziness, shortness of breath, chest pain, abdominal pain, bleeding, fevers, or worsening of medical condition. Patient was counseled about treatment plan, medications, possible side effects, patientverbalized understanding. All questions were answered to the best of my ability. This discharge took greater then 30 minutes in planning, reviewing documentation, counseling the patient, and discussing with other team members." ASSESSMENT ASSESSMENT Assessment Date of Service: Jan 14, 2025 Billing Provider: CARLOS JONES MD, MOHAMMED RESIDENT Jan 16, 2025 15:53
--- NOTE | 2025-01-18 18:00 | DVHSR ---
APPROVED REPORT EXAM: Two-dimensional and M-mode echocardiogram with Doppler and color Doppler. Blood Pressure: 119/85 mmHg INDICATION Questionable CVA RISK FACTORS Height: 5'8", Weight: 197 DIMENSIONS LVDd5.3 (3.8-5.7cm)LA (2D)3.3 (1.9-4.0cm)Aortic Root3.3 (2.0-3.7cm) LVDs4.0 (2.5-4.0cm)LA (MM) (1.9-4.0cm)Aortic Cusp Exc1.7 (1.5-2.0cm) EF (%) 46.0 (55-70%)Rt. Atrium3.9 (1.9-4.0cm)Asc. Aorta3.1 cm IVSd1.3 (0.7-1.1cm)RV (D)3.1 (1.8-2.4cm) PWd1.5 (0.7-1.1cm) Mitral Valve MitralMitral Stenosis E wave0.46m/sMV Mean GR.mmHg A wave0.53m/sMV Peak GR.mmHg E/A ratio0.92D MVAcm2 DECEL [id number] 1/2 Timems Aortic Valve Aortic ValveAortic Stenosis V10.90m/Patricia Mean GR.4mmHg V21.32m/Patricia Peak GR.7mmHg LVOT Diameter2.2 (1.8-2.4cm)Doppler AVA2.59cm2 Pulmonic Valve V20.80m/s Conclusion Sinus rhythm. Concentric LVH. Left atrial enlargement. Valves are normal. EF of 40% with mild global hypokinesis and impaired diastolic relaxation. Moderate pulmonic insufficiency. No pericardial effusion masses or vegetations.
--- NOTE | 2025-01-19 08:57 | ECG ---
[facility] Test Date: 2025-01-12 Test Time: 00:28:20 Pat Name: CLIVE MAR Department: ED Room: 0296T B Gender: M Saw Grinder: rodrigo : 1980 Requested By: LAVINIA CARRION Order Number: [id number] Reading MD: Joo Ferris Measurements Intervals [place] Rate: 70 P: 46 UT: 204 QRS: 46 QRSD: 108 T: 20 QT: 395 QTc: 427 Interpretive Statements Sinus rhythm Borderline prolonged UT interval Probable left atrial enlargement Electronically Signed On 01-19-2025 9:03:52 PDT by Joo Ferris Please click the below link to view image of tracing.
[2025-01-20] MEDS ORDERED: LORA-655 PO (14:20)
--- NOTE | 2025-01-20 17:54 | DVHPN2 ---
Consult Progress Note Date Seen: Jan 15, 2025 Objective laboratory and microbiology Laboratory Tests 01/14/25 06:42 Test 01/14/25 06:42 Range/Units Serum Glucose 103 74-106 mg/dL NELLY FISHER MD Jan 20, 2025 17:54
--- NOTE | 2025-01-20 17:54 | DVHPN2 ---
Consult Progress Note Date Seen: Jan 16, 2025 Objective laboratory and microbiology Laboratory Tests 01/14/25 06:42 Test 01/14/25 06:42 Range/Units Serum Glucose 103 74-106 mg/dL NELLY FISHER MD Jan 20, 2025 17:54
== END 2025-01-14 20:40 | disposition left against medical advice (07) | DRG 70 ==
LOC: ER 16:32 → OVERFLOW 01-12 00:45 → TELE-WESTW 01-12 16:54
PROVIDERS: ADMIT Student in an Organized Health Care Education/Training Program; ATTEND Student in an Organized Health Care Education/Training Program
DX: G93.41 Metabolic encephalopathy (principal); N17.0 Acute kidney failure with tubular necrosis; N18.9 Chronic kidney disease, unspecified; Z53.29 Procedure and treatment not carried out because of patient's decision for other reasons; I12.9 Hypertensive chronic kidney disease with stage 1 through stage 4 chronic kidney disease, or unspecified chronic kidney disease; Z68.31 Body mass index [BMI] 31.0-31.9, adult; Z79.899 Other long term (current) drug therapy
CPT/HCPCS: 36415; 70450; 70551; 71045; 80048; 80053; 80076; 80307; 80320; 81001; 82140; 82607; 83036; 83605; 83735; 84100; 84443; 84484; 85025; 85379; 85610; 85730; 86360; 86592; 86593; 86777; 86778; 86780; 87426; 87804; 93005; 93306; 93886; 99291; G0378; J2405

== ENCOUNTER 2025-01-16 17:49 | Inpatient (IN) | payer BC ==
[~2025-01-16] VITALS: Ht 170.2 cm; Wt 91.3 kg
[~2025-01-16 17:49] MED LIST: BICT1TAB PO
[2025-01-16] MEDS: SODIUM CHLORIDE 0.9% 1,000 ML IVB ONE (20:15)
--- NOTE | 2025-01-16 20:50 | DVH ---
EXAM: CT HEAD WITHOUT CONTRAST INDICATION: ALOC / HIV TECHNIQUE: CT of the head without intravenous contrast. Radiation Dose Information: CT Dose: CTDI volume is 57.24 mGy. Dose-length product is 915.81 mGy*cm The dose indicators for CT are the volume Computed Tomography (CT) Dose Index (CTDIvol) and the Dose Length Product (DLP), and are measured in units of mGy and mGy-cm, respectively. These indicators are not patient dose, but values generated from the CT scanner acquisition factors. The report includes radiation exposure data for exposures received during this examination. COMPARISON: MRI BRAIN HEAD WO CONTRAST on DOS: 01/12/25, CT HEAD WITHOUT CONTRAST on DOS: 01/11/25 FINDINGS: There is no evidence of acute intracranial hemorrhage, extra-axial collection, mass effect, midline s hift, herniation or hydrocephalus. The ventricles, sulci and cisterns are age appropriate. The damico-white differentiation is intact. The visualized paranasal sinuses and mastoid air cells are clear. The surrounding soft tissues and osseous structures are unremarkable. IMPRESSION: No acute intracranial abnormality.
--- NOTE | 2025-01-16 20:50 | DVH ---
CHEST RADIOGRAPH Indication: SOB Technique: Single frontal view of the chest was obtained Comparison: XY CHEST PORTABLE on DOS: 01/11/25 FINDINGS: Lines and Tubes: None Lungs: No focal consolidation. Pleura: No effusion. No pneumothorax. Cardiomediastinal contours: Unremarkable Bones: No acute osseous abnormality. IMPRESSION: 1. No acute cardiopulmonary disease. 2. No significant change from 01/11/2025
[2025-01-16 20:52] LABS: Hematocrit 54.5 % (41.0-53.0); Hemoglobin 17.6 g/dL (13.5-17.5); Mean Corpuscular Hemoglobin 24.5 pg (28.0-32.0); Mean Corpuscular Volume 75.7 fL (80.0-100.0); Nucleated Red Blood Cells % 0.6 %
[2025-01-16 21:11] LABS: Albumin 4.1 g/dL (3.2-4.8); Alkaline Phosphatase 57 U/L (46-116); Anion Gap 10 (5-15); Bilirubin, Total 0.4 mg/dL (0.2-1.0); Calcium 9.0 mg/dL (8.7-10.4); Carbon Dioxide 29 mmol/L (20-31); Chloride 104 mmol/L (98-107); Glucose 90 mg/dL (74-106); Magnesium 2.1 mg/dL (1.6-2.6); Sodium 143 mmol/L (136-145); Total Protein 7.0 g/dL (5.7-8.2)
[2025-01-16 21:38] LABS: Alanine Aminotransferase 26 U/L (7-40); BUN/Creatinine Ratio 13.3 (10.0-20.0); Blood Urea Nitrogen 18 mg/dL (9-23); Potassium 4.5 mmol/L (3.5-5.1)
--- NOTE | 2025-01-16 21:42 | ED.PDOC ---
History of Present Illness HPI Comments 44 y/o obese M presents with significant other for c/c of confusion, headache, speech changes, and difficulty walking. Patient reports on returning to the ED after being evaluated on 01/11/25. He comments on being admitted but leaving AMA, due to other personal commitments, with instructions to return to the ED whenever he can. Denies any changes to symptoms since last visit. Chief Complaint: Abnormal LAB's Time Seen by MD: 20:10 Reviewed Notes: Nurses Notes, Medications, Allergies Allergies: Coded Allergies: NO KNOWN ALLERGIES (Unverified , 01/11/25) Home Meds Reported Medications Yyjiomkpqhv-Hfzvvyfpkrrhh-Xjld (Biktarvy 50-200-25 mg) 1 Tab Tab, 1 TAB PO, TAB 01/12/25 Information Source: Patient Mode of Arrival: Ambulatory Severity: Moderate Timing: Hours Duration: Since onset Prehospital treatment: None Past Medical History PAST MEDICAL HISTORY: HIV Past Medical History (Other): neurosyphilis Surgical History: Denies all surgeries Family History Family History: Reviewed,noncontributory to illness, No family hx of Cancer, No family hx of DM, No family hx of Heart lisandra, No family hx of HTN, No family hx ofKidney lisandra, No family hx of Liver lisandra, No family hx of Lung lisandra, No family hx of Stroke Social History Smoker: Non-Smoker Alcohol: Denies ETOH Use Drugs: Denies Drug Use Lives In: Home All Other Systems: Reviewed and Negative (Comprehensive review of systems are negative unless stated in HPI) Physical Exam General Appearance: No Apparent Distress, Obese HEENT: Normal ENT Inspection, Pharynx Normal, TMs Normal Neck: Full Range of Motion, Non-Tender, Normal, Normal Inspection Respiratory: Chest Non-Tender, Lungs Clear, No Accessory Muscle Use, No Respiratory Distress, Normal Breath Sounds Cardiovascular: No Edema, No JVD, No Murmur, No Gallop, Normal Peripheral Pulses, Regular Rate/Rhythm Breast Exam: Deferred Gastrointestinal: No Organomegaly, Non Tender, No Pulsatile Mass, Normal Bowel Sounds, Soft Genitalia: Deferred Pelvic: Deferred Rectal: Deferred Extremities: No calf tenderness, Normal capillary refill, Normal inspection, Normal range of motion, Non-tender, No pedal edema Musculoskeletal : Apperance: Normal Neurologic: Alert, sales agent protective service II-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 Was a procedure done?: No Differential Dx Considerations may include: metabolic encephalopathy, meningitis, sinusitis, electrolyte imbalance, viral syndrome, dehydration, hypoglycemia, hypoxemia, seizure, closed head injury, among others X-Ray, Labs, Meds, VS Vital Signs Date Time Temp Pulse Resp B/P (MAP) Pulse Ox O2 Delivery O2 Flow Rate FiO2 01/16/25 17:58 97.2 74 18 132/96 95 97.2 Lab Test 01/16/25 20:27 Range/Units White Blood Count 3.6 L 4.4-10.8 10^3/uL Red Blood Count 7.19 H 4.5-5.90 10^6/uL Hemoglobin 17.6 H 13.5-17.5 g/dL Hematocrit 54.5 H 41.0-53.0 % Mean Corpuscular Volume 75.7 L 80.0-100.0 fL Mean Corpuscular Hemoglobin 24.5 L 28.0-32.0 pg Mean Corpuscular Hemoglobin Concent 32.4 32.0-36.0 g/dL Red Cell Distribution Width 18.5 H 11.8-14.3 % Platelet Count 196 140-450 10^3/uL Mean Platelet Volume 8.2 6.9-10.8 fL Neutrophils (%) (Auto) 36.4 L 37.0-80.0 % Lymphocytes (%) (Auto) 38.2 10.0-50.0 % Monocytes (%) (Auto) 12.7 H 0.0-12.0 % Eosinophils (%) (Auto) 12.1 H 0.0-7.0 % Basophils (%) (Auto) 0.6 0.0-2.0 % Neutrophils # (Auto) 1.3 L 1.6-8.6 10 ^3/uL Lymphocytes # (Auto) 1.4 0.4-5.4 10 ^3/uL Monocytes # (Auto) 0.5 0-1.3 10 ^3/uL Eosinophils # (Auto) 0.4 0-0.8 10 ^3/uL Basophils # (Auto) 0 0-0.2 10 ^3/uL Nucleated Red Blood Cells 0.6 % Sodium Level 143 136-145 mmol/L Potassium Level 4.5 3.5-5.1 mmol/L Chloride Level 104 98-107 mmol/L Carbon Dioxide Level 29 20-31 mmol/L Anion Gap 10 5-15 Blood Urea Nitrogen 18 9-23 mg/dL Creatinine 1.35 H 0.700-1.30 mg/dL Glomerular Filtration Rate Calc 66 >90 mL/min BUN/Creatinine Ratio 13.3 10.0-20.0 Serum Glucose 90 74-106 mg/dL Lactic Acid Level 0.9 0.4-2.0 mmol/L Calcium Level 9.0 8.7-10.4 mg/dL Magnesium Level 2.1 1.6-2.6 mg/dL Total Bilirubin 0.4 0.2-1.0 mg/dL Aspartate Amino Transferase (AST) 42 H 13-40 U/L Alanine Aminotransferase (ALT) 26 7-40 U/L Alkaline Phosphatase 57 46-116 U/L Total Protein 7.0 5.7-8.2 g/dL Albumin 4.1 3.2-4.8 g/dL [place] [address] Ph: [phone] DIAGNOSTIC IMAGING Diagnostic Imaging Report : [id number] Signed PATIENT: CLIVE MAR ACCT: [id number] UNIT: [id number] : 1980 LOC: ER ROOM / BED: / AGE / SEX: 44 / M ADM STATUS: REG ER SERVICE 14 ORDERING PHYSICIAN: MASOOD BRANCH MD PROCEDURE(s): HWOCT - HEAD WITHOUT CONTRAST REASON: ALOC / HIV ORDER NUMBER(s): [id number], ACCESSION NUMBER(s): [id number] EXAM: CT HEAD WITHOUT CONTRAST INDICATION: ALOC / HIV TECHNIQUE: CT of the head without intravenous contrast. Radiation Dose Information: CT Dose: CTDI volume is 57.24 mGy. Dose-length product is 915.81 mGy*cm The dose indicators for CT are the volume Computed Tomography (CT) Dose Index (CTDIvol) and the Dose Length Product (DLP), and are measured in units of mGy and mGy-cm, respectively. These indicators are not patient dose, but values generated from the CT scanner acquisition factors. The report includes radiation exposure data for exposures received during this examination. COMPARISON: MRI BRAIN HEAD WO CONTRAST on DOS: 01/12/25, CT HEAD WITHOUT CONTRAST on DOS: 01/11/25 FINDINGS: There is no evidence of acute intracranial hemorrhage, extra-axial collection, mass effect, midline shift, herniation or hydrocephalus. The ventricles, sulci and cisterns are age appropriate. The damico-white differentiation is intact. The visualized paranasal sinuses and mastoid air cells are clear. The surrounding soft tissues and osseous structures are unremarkable. IMPRESSION: No acute intracranial abnormality. ATED BY: RAMON CLAYTON MD DICTATED DATE/TIME: 01/16/252046 SIGNED BY: RAMON CLAYTON MD SIGNED DATE/TIME: 01/16/252046 CC: [place] [address] Ph: [phone] DIAGNOSTIC IMAGING Diagnostic Imaging Report : [id number] Signed PATIENT: CLIVE MARCCT: [id number] UNIT: [id number] : 1980 LOC: ER ROOM / BED: / AGE / SEX: 44 / M ADM STATUS: REG ER SERVICE 14 ORDERING PHYSICIAN: MASOOD BRANCH MD PROCEDURE(s): CXRP - CHEST PORTABLE REASON: SOB ORDER NUMBER(s): [id number], ACCESSION NUMBER(s): [id number] CHEST RADIOGRAPH Indication: SOB Technique: Single frontal view of the chest was obtained Comparison: XY CHEST PORTABLE on DOS: 01/11/25 FINDINGS: Lines and Tubes: None Lungs: No focal consolidation. Pleura: No effusion. No pneumothorax. Cardiomediastinal contours: Unremarkable Bones: No acute osseous abnormality. IMPRESSION: 1. No acute cardiopulmonary disease. 2. No significant change from 01/11/2025 ATED BY: KANNAN CARRIZALES Jr., DO DICTATED DATE/TIME: 01/16/252047 SIGNED BY: KANNAN CARRIZALES Jr., DO SIGNED DATE/TIME: 01/16/252047 CC: Time of 1ST Reevaluation: 20:40 Reevaluation 1ST: Unchanged Patient Education/Counseling: Diagnosis, Treatment, Need For Follow Up Family Education/Counseling: No Family Present SEPSIS Sepsis Screen Date sepsis recognized/suspect: Jan 16, 2025 Time Sepsis recognized/suspect: 1800 Recent Procedure: No On Antibiotic Therapy: No Respiratory Rate >20: No Heart Rate >90: No Temp<36 C (96.8 F) or >38.3 C: No SBP <90 or MAP <65 mmHG: No New Acute Mental Status Change: No Is the patient on CPAP, BIPAP,: No Physician Orders Urinalysis (01/16/25 20:15) Blood Culture (01/16/25 20:15) Chest Portable (01/16/25 20:15) Head Without Contrast (01/16/25 20:15) Vital Signs Date Time Temp Pulse Resp B/P (MAP) Pulse Ox O2 Delivery O2 Flow Rate FiO2 01/16/25 17:58 97.2 74 18 132/96 95 97.2 Laboratory Tests Test 01/16/25 20:27 Lactic Acid Level 0.9 mmol/L (0.4-2.0) White Blood Count 3.6 10^3/uL (4.4-10.8) L Departure 1 Departure Time of Disposition: 22:13 Impression: Primary Impression: Acute metabolic encephalopathy Additional Impression: HIV (human immunodeficiency virus infection) Disposition: ADMITTED INPATIENT Admit to: Med Surg Condition: Guarded Discharged With: Self Comments 44-year-old male with a history of HIV now with some confusion and cognitive decline. CT of the head shows no acute pathology. Lab work is unrevealing. Patient was just admitted for these issue and states that it has not improved. Patient will need to be admitted for metabolic encephalopathy Critical Care Note Critical Care Time?: No Stability Stability form required: No Heart Score Heart Score: Heart Score Response (Comments) Value History N/A 0 EKG N/A 0 Age N/A 0 Risk Factors N/A 0 Troponin N/A 0 Total 0 I personally scribed for MASOOD BRANCH MD ([email or web address]) on 01/16/25 at 21:42. Electronically submitted by Myles Wheat ([email or web address]). MASOOD BRANCH MD Jan 16, 2025 21:42
[2025-01-16 22:15] VITALS: PULSE 72; RESP 16; O2SAT 95
--- NOTE | 2025-01-16 23:28 | DVHHPRES ---
History of Present Illness Resident Creating Document: LAVINIA CARRION RESIDENT History of Present Illness Mr. Champagne is a 44 year old male with PMHx of HIV on Biktarvy and low testosterone on TRT, who presents today with chief complaint of confusion. The patient was recently admitted stating he had malaise, decrease, in his memory, difficulty putting words together, and recurrent falls. At the time the patient left AMA, however, he presents today with the same symptoms. Additionally refers stuttering, generalized weakness, and jerking of his head and on occasion his entire body. On evaluation in the ED, vitals were stable. initial labs show leukopenia, elevated open and hematocrit, creatinine 1.35, UA without significant findings and UDS negative. Chest x-ray shows no acute cardiopulmonary disease. Head CT shows no acute intracranial abnormality. He was admitted for further workup and management. Prior medical history: HIV, and low testosterone Past surgical history: Denies Family history: Grandmother with ALS Allergies: Denies Social: Denies drug and tobacco use. Refers rare alcohol consumption. Review of Systems Review of Systems Constitutional: Refers Fatigue Denies weight loss, fever and chills. HEENT: Denies changes in vision and hearing. Respiratory: Denies shortness of breath and cough Cardiovascular: Denies chest discomfort or palpitations GI: Denies abdominal distention, abdominal pain, diarrhea : Denies dysuria and urinary frequency. Musculoskeletal: Refers generalized weakness Skin: Denies rash and pruritus. Neurological: Refers confusion, decreases in memory, difficulty putting words together, recurrent falls, generalized weakness, jerking of head and entire body denies dizziness headache vision or hearing problems Allergies: Coded Allergies: NO KNOWN ALLERGIES (Unverified , 01/11/25) Medications Current Medications Medications Dose Ordered Sig/Taisha Route Start Time Stop Time Status Last Admin Dose Admin Patient Own Medication 1 DAILY PO 01/17/25 10:00 UNV Sodium Chloride 1,000 ml @ 100 mls/hr Q10H IV 01/16/25 23:15 Exam Vital Signs Vital Signs Date Time Temp Pulse Resp B/P (MAP) Pulse Ox O2 Delivery O2 Flow Rate FiO2 01/16/25 22:15 72 16 95 Room Air* 0 21 01/16/25 22:15 98.8 160/94 (116) 98.8 Exam General: The patient alert and oriented in person place and time. Patient following commands HEENT: Normocephalic, atraumatic, normal reactive pupils, EOM intact, pink conjunctiva, pink moist mucous membrane Respiratory/pulmonary: Bilateral chest expansion, no pain on palpation of chest wall, clear lungs bilaterally, vesicular murmurs present in almost all lung dyer, no associated crackles or wheezes. Cardiovascular: Normal RRR, normal S1 and S2, no murmurs Abdomen: Obese, Abdomen nondistended, normal bowel sounds, soft, there is no pain to palpation in any of the abdominal quadrants, no palpable masses. Extremities: No deformities, there is no peripheral edema present at the lower extremities, normal pulses Skin: No rashes or pruritus, there is no sacral edema present at this time. Neurological: Intact cranial nerves with no focal neurologic deficits, strength 5/5 bilateral upper and lower extremities, sensation intact Labs/Xrays Labs Test 01/16/25 20:27 Range/Units White Blood Count 3.6 L 4.4-10.8 10^3/uL Red Blood Count 7.19 H 4.5-5.90 10^6/uL Hemoglobin 17.6 H 13.5-17.5 g/dL Hematocrit 54.5 H 41.0-53.0 % Mean Corpuscular Volume 75.7 L 80.0-100.0 fL Mean Corpuscular Hemoglobin 24.5 L 28.0-32.0 pg Mean Corpuscular Hemoglobin Concent 32.4 32.0-36.0 g/dL Red Cell Distribution Width 18.5 H 11.8-14.3 % Platelet Count 196 140-450 10^3/uL Mean Platelet Volume 8.2 6.9-10.8 fL Neutrophils (%) (Auto) 36.4 L 37.0-80.0 % Lymphocytes (%) (Auto) 38.2 10.0-50.0 % Monocytes (%) (Auto) 12.7 H 0.0-12.0 % Eosinophils (%) (Auto) 12.1 H 0.0-7.0 % Basophils (%) (Auto) 0.6 0.0-2.0 % Neutrophils # (Auto) 1.3 L 1.6-8.6 10 ^3/uL Lymphocytes # (Auto) 1.4 0.4-5.4 10 ^3/uL Monocytes # (Auto) 0.5 0-1.3 10 ^3/uL Eosinophils # (Auto) 0.4 0-0.8 10 ^3/uL Basophils # (Auto) 0 0-0.2 10 ^3/uL Nucleated Red Blood Cells 0.6 % Sodium Level 143 136-145 mmol/L Potassium Level 4.5 3.5-5.1 mmol/L Chloride Level 104 98-107 mmol/L Carbon Dioxide Level 29 20-31 mmol/L Anion Gap 10 5-15 Blood Urea Nitrogen 18 9-23 mg/dL Creatinine 1.35 H 0.700-1.30 mg/dL Glomerular Filtration Rate Calc 66 >90 mL/min BUN/Creatinine Ratio 13.3 10.0-20.0 Serum Glucose 90 74-106 mg/dL Lactic Acid Level 0.9 0.4-2.0 mmol/L Calcium Level 9.0 8.7-10.4 mg/dL Phosphorus Level 3.7 2.4-5.1 mg/dL Magnesium Level 2.1 1.6-2.6 mg/dL Total Bilirubin 0.4 0.2-1.0 mg/dL Aspartate Amino Transferase (AST) 42 H 13-40 U/L Alanine Aminotransferase (ALT) 26 7-40 U/L Alkaline Phosphatase 57 46-116 U/L Total Protein 7.0 5.7-8.2 g/dL Albumin 4.1 3.2-4.8 g/dL SEPSIS Sepsis Screen Date sepsis recognized/suspect: Jan 16, 2025 Time Sepsis recognized/suspect: 2214 Recent Procedure: No On Antibiotic Therapy: No Respiratory Rate >20: No Heart Rate >90: No Temp<36 C (96.8 F) or >38.3 C: No SBP <90 or MAP <65 mmHG: No New Acute Mental Status Change: No Is the patient on CPAP, BIPAP,: No Physician Orders Urinalysis (01/16/25 20:15) Blood Culture (01/16/25 20:15) Chest Portable (01/16/25 20:15) Head Without Contrast (01/16/25 20:15) Drug Screen (01/16/25 22:45) Vitamin D, 25-Hydroxy (01/16/25 22:45) Comprehensive Hepatitis Panel (01/16/25 22:45) Urine Bacterial Culture (01/16/25 22:45) Admit (01/16/25 23:05) Allergies (01/16/25 23:05) Code Status (01/16/25 23:05) Condition: Stable (01/16/25 23:05) Stat Ekg For Chest Pain (01/16/25 23:05) Notify Of Changes From Base (01/16/25 23:05) Emergency Dysrhythmia Protocol (01/16/25 23:05) Rhythm Strips Once Every Shift (01/16/25 23:05) Patients Own Medication (01/17/25 10:00) Sodium Chloride 0.9% (01/16/25 23:15) Regular Diet (01/17/25 Breakfast) * Neurology Consult (01/16/25 23:09) Aspirin Tablet (01/17/25 10:00) Aspirin Tablet (01/16/25 23:30) Atorvastatin (Lipitor) (01/17/25 22:00) Echo 2d Mode Cardiac Dop (01/16/25:) Testosterone (01/16/25:) Erythropoietin (01/16/25:) Erythrocyte Sedimentation Rate (01/16/25:) C-Reactive Protein (01/16/25:) Linda; Comprehensive Panel (01/16/25:) [place] Lambda Lite Chain Free S (01/16/25:) Vital Signs Date Time Temp Pulse Resp B/P (MAP) Pulse Ox O2 Delivery O2 Flow Rate FiO2 01/16/25 22:15 72 16 95 Room Air* 0 21 01/16/25 22:15 98.8 72 16 160/94 (116) 95 98.8 01/16/25 17:58 97.2 74 18 132/96 95 97.2 Laboratory Tests Test 01/16/25 20:27 Lactic Acid Level 0.9 mmol/L (0.4-2.0) White Blood Count 3.6 10^3/uL (4.4-10.8) L Medications Medications Dose Ordered Sig/Taisha Route Start Time Stop Time Status Last Admin Dose Admin Sodium Chloride 1,000 ml @ 1,000 mls/hr Q1H ONCE IVB 01/16/25 20:15 01/16/25 21:14 DC 01/16/25 20:15 1,000 MLS/HR Assessment/Plan Assessment/Plan Assessment and Plan: Possible acute metabolic encephalopathy - Neurology has been consulted - Head CT: No acute intracranial abnormalities - Blood cultures ordered - Urine cultures ordered Rule out hyperviscosity secondary to TRT - Hb 17.6, HCT 54.5 - LINDA comprehensive panel - EPO pending - Testosterone levels pending - [place] lambda lite chain pending - Aspirin 325 mg PO once - Aspirin 841 mg PO daily Polycythemia Eosinophilia Leukopenia - Ordered peripheral blood smear Possible CRISTHIAN on CKD likely due to VM in/hemodynamically mediated - Monitor renal function - Avoid nephrotoxic drugs - IV fluids HIV - CD4 count: 524 ( 01/12/2025) - CD8 count: 618 ( 01/12/2025) - Continue Biktarvy 1 tablet daily Obesity, BMI 33.8 kg/m2 - I have counseled on healthy life style modifications Diet: Regular DVT prophylaxis: Enoxaparin 40 mg SC daily GI prophylaxis: Not indicated Case discussed with Dr. Hernandez Goals of care discussed with the patient for over 25 minutes. FULL CODE. Plan discussed with: Patient, Other (Nurses) My Orders Orders - LAVINIA CARRION RESIDENT Procedure Category Date Status Time Drug Screen LAB 01/16/25 Logged 22:45 Vitamin D, 25-Hydroxy LAB 01/16/25 In Process 22:45 Comprehensive LAB 01/16/25 In Process Hepatitis Panel 22:45 Urine Bacterial ALEXANDREA 01/16/25 Logged Culture 22:45 Admit ADMIT 01/16/25 Transmitted 23:05 Allergies YOSEF 01/16/25 In Process 23:05 Code Status CODE 01/16/25 Transmitted 23:05 Condition: Stable YOSEF 01/16/25 In Process 23:05 Stat Ekg For Chest YOSEF 01/16/25 In Process Pain 23:05 Notify Of Changes YOSEF 01/16/25 In Process From Base 23:05 Emergency Dysrhythmia YOSEF 01/16/25 In Process Protocol 23:05 Rhythm Strips Once YOSEF 01/16/25 In Process Every Shift 23:05 Patients Own PHA 01/17/25 Pending Medication 10:00 Sodium Chloride 0.9% PHA 01/16/25 In Process 23:15 Regular Diet DIET 01/17/25 Transmitted Breakfast * Neurology Consult CONS 01/16/25 Transmitted 23:09 Date of Service: Jan 16, 2025 Billing Provider: ROSA LINDO MD Common Visit Codes: 55550-[id number] INP/OBS CARE (HIGH) Secondary Visit Codes: 63792-[id number] CARE PLAN 30 MINUTES LAVINIA CARRION RESIDENT Jan 16, 2025 23:28 SYBIL SOUZA RESIDENT Jan 17, 2025 08:44
[2025-01-17] VITALS (10 sets, daily range): BP systolic 124–150; BP diastolic 67–100; PULSE 60–78; RESP 14–19; TEMP 97.9–98.4; O2SAT 93–99
[2025-01-17] MEDS: SODIUM CHLORIDE 0.9% 1,000 ML IV SCH (00:35)
[2025-01-17 02:46] LABS: Urine Protein, UAD Negative (Negative)
[2025-01-17 03:01] LABS: Hematocrit 48.0 % (41.0-53.0); Hemoglobin 15.7 g/dL (13.5-17.5); Mean Corpuscular Hemoglobin 24.7 pg (28.0-32.0); Mean Corpuscular Volume 75.6 fL (80.0-100.0); Nucleated Red Blood Cells % 0.2 %; Potassium 4.4 mmol/L (3.5-5.1); Sodium 143 mmol/L (136-145)
[2025-01-17 03:02] LABS: Anion Gap 6 (5-15); Carbon Dioxide 29 mmol/L (20-31)
[2025-01-17 03:07] LABS: BUN/Creatinine Ratio 10.6 (10.0-20.0); Blood Urea Nitrogen 14 mg/dL (9-23); Glucose 93 mg/dL (74-106)
[2025-01-17 03:08] LABS: Calcium 7.8 mg/dL (8.7-10.4); Chloride 108 mmol/L (98-107)
[2025-01-17 03:18] LABS: Amphetamine Screen, Urine Neg (NEGATIVE); Barbiturate Scree,Urine Neg (NEGATIVE); Benzodiazephine Screen, Urine Neg (NEGATIVE); Cannabinoid Screen, Urine Neg (NEGATIVE); Cocaine Screen, Urine Neg (NEGATIVE); Opiate Scree,Urine Neg (NEGATIVE); Phencyclidine Screen, Urine Neg (NEGATIVE)
[2025-01-17] MEDS: BIKTARVY 50MG-200MG-25MG TABLET PO SCH (10:00)
[2025-01-17 11:30] LABS: Hepatitis A Total Antibody Negative (Negative)
[2025-01-17 11:31] LABS: Hepatitis B Surface Antigen Negative (Negative); Hepatitis C Antibody Negative (Negative)
[2025-01-17] MEDS: ENOXAPARIN SOD 40 MG/0.4 ML SYRINGE SC SCH (12:31)
--- NOTE | 2025-01-17 16:28 | DVHPNRES ---
Progress Note Date Seen: Jan 17, 2025 Resident Creating Document: KIRILL SPEARS RESIDENT Medical Necessity Reason Pt with a Central, PICC or Fol: No Subjective Review of Systems Mr. Champagne is a 44 year old male with PMHx of HIV on Biktarvy and low testosterone on TRT, who presents today with chief complaint of confusion. The patient was recently admitted stating he had malaise, decrease, in his memory, difficulty putting words together, and recurrent falls. At the time the patient left AMA, however, he presents today with the same symptoms. Additionally refers stuttering, generalized weakness, and jerking of his head and on occasion his entire body. On evaluation in the ED, vitals were stable. initial labs show leukopenia, elevated open and hematocrit, creatinine 1.35, UA without significant findings and UDS negative. Chest x-ray shows no acute cardiopulmonary disease. Head CT shows no acute intracranial abnormality. Patient was recently admitted at [facility] with the same complaint.Patient was seen by infectious disease, recommended for Viral load, treponema pallidum abs, RPR, toxoplasma abs. Wait for neurology evaluation to determine need for lumbar puncture to check for HIV, cryptococcus and other possible etiologies, Continue Bictarvy, follow-up with ID as an outpatien. Treponema pallidum reactive A. Plan is to do lumbar puncture for CSF study but patient left AMA. Prior medical history: HIV, and low testosterone Past surgical history: Denies Family history: Grandmother with ALS Allergies: Denies Social: Denies drug and tobacco use. Refers rare alcohol consumption. Patient was seen today at bedside, labs and chart reviewed. Patient reported feeling okay. No acute distress. Plan is to do a lumbar puncture tomorrow after neurology evaluation. Objective vital signs Vital Sign Date Time Temp Pulse Resp B/P (MAP) Pulse Ox O2 Delivery O2 Flow Rate FiO2 01/17/25 13:00 98.1 67 18 150/100 (117) 98 98.1 01/17/25 02:56 Room Air* 0 21 Total Intake and Output 01/16/25 01/16/25 01/17/25 15:00 23:00 07:00 Intake Total 1000 ml Output Total 300 ml Balance 700 ml medications Current Medications Medications Dose Ordered Sig/Taisha Route Start Time Stop Time Status Last Admin Dose Admin Patient Own Medication 1 DAILY PO 10/13/25 10:00 Sodium Chloride 1,000 ml @ 100 mls/hr Q10H IV 01/16/25 23:15 01/17/25 00:35 100 MLS/HR Aspirin 81 mg DAILY PO 01/17/25 10:00 01/17/25 12:30 81 MG Atorvastatin Calcium 40 mg HS PO 01/17/25 22:00 Enoxaparin Sodium 40 mg DAILY SC 01/17/25 10:00 01/17/25 12:31 40 MG Examination General examination- HEENT- PEERLA, no acute nasal discharge Cardiovascular- S1-S2 audible, rate and rhythm regular, no murmur Respiratory- CTAB, no wheeze or rhonchi Gastrointestinal-nontender, bowel sound+. Nondistended Musculoskeletal-no acute joint swelling or tenderness or redness Lower extremity- Neurological- cranial nerves intact, no acute dysarthria or dysphagia Psychiatry- denies depression or SI or HI Skin- no acute rash or purpura laboratory and microbiology Laboratory Tests 01/17/25 01:14 Test 01/17/25 01:14 Range/Units Serum Glucose 93 74-106 mg/dL Microbiology Date/Time Source Procedure Growth Status 01/17/25 03:30 Nose MRSA Screen - Final Complete Problem List/Assessment/Plan Problem List/Assessment/Plan Assessment and plan Possible acute metabolic encephalopathy likely due to neurosyphilis/HIV # suspected neurosyphilis - Neurology has been consulted - Head CT: No acute intracranial abnormalities - Blood cultures pending - Urine cultures pending -plan is to do a lumbar puncture versus yesterday after neurology evaluation #Rule out hyperviscosity secondary to TRT - Hb 17.6, HCT 54.5 - JUSTEN comprehensive panel - EPO pending - Testosterone levels pending - [place] lambda lite chain pending - Aspirin 325 mg PO once - Aspirin 841 mg PO daily #Polycythemia #Eosinophilia #Leukopenia - Ordered peripheral blood smear #Possible CRISTHIAN on CKD likely due to VM in/hemodynamically mediated - Monitor renal function - Avoid nephrotoxic drugs - IV fluids HIV - CD4 count: 524 ( 01/12/2025) - CD8 count: 618 ( 01/12/2025) - Continue Biktarvy 1 tablet daily Obesity, BMI 33.8 kg/m2 - I have counseled on healthy life style modifications Goals of care, Code status full code ; discussed with >15 minutes PUD prophylaxis: Not indicated DVT prophylaxis: Patient ambulating Plan discussed with Dr. Yepez , nursing staff, Total time spent on patient evaluation, chart review, assessment and plan, discussion discussion >35 minutes Plan discussed with: Patient, Other (RN) Date of Service: Jan 17, 2025 Billing Provider: KIRILL SPEARS MOHAMMED RESIDENT Jan 17, 2025 16:28
--- NOTE | 2025-01-17 16:55 | DVHINCON2 ---
Date of service: Jan 17, [address] Retana Reason for Consultation Progressive memory loss, change in speech, head jerking, weakness History of Present Illness Mr. Champagne is a 44 years old right-handed gentleman with a history of HIV infection, syphilis with three penicillin injection, he came to the hospital on 01/14/2025 with a chief company of confused, speech changes, and gait disturbance. At that time, the patient is alert and fully oriented, he provided the following history For 2-3 weeks, the patient has spells of dizziness/lightheadedness, not feeling right in the legs with a right-sided more affected, weakness in lower extremities, which happens no med when he is supine in the bed or standing up, but more often when he is off bed, he also has difficulty with walking as a result. For 2-3 weeks up,, he has intermittent difficult to get words out, which lasts for 1-2 seconds, this may be associated with myoclonus jerks in the whole body, but without altered mental status He relates a history of HIV because of his , he was found to have syphilis for which he has received three penicillin injection. He has a history of periodic intense pulsating headache since teenager, there is associated nausea, but photophobia, sonophobia, he typically has headache once m onthly, with last till he takes [id number] pain medication, but recently the headache has been very often He denies confusion, memory difficulty He is sexually active without protected sex, his girlfriend is aware of his diagnosis of HIV and syphilis, and she is on treatment for STD prevention UDS, 01/17/2025: Negative RPR 01/14/2025: 1:1 Treatment edema pallidum antibody, 01/14/2025: Active Hepatitis panel, 01/16/25: Negative WBC/HB/PLT/MCV, 01/17/2025: 2.9/6.35/166/75.6 % CD4, 01/12/25: 40.3 Absolute CD4, 01/12/25: 524 % CD8, 01/12/2025: 47.5 Absolute CD8, 01/12/2025: 618 ESR, 01/16/25: 2 BUN/CR, 01/17/2025: 14/1.32 GFR, 02/03/2025: 68 C-reactive protein, 01/16/25: 0.12 Vitamin B12, 01/11/2025: 462 TSH, 01/11/2025: 1.86 CT head, 01/16/2025: No acute intracranial abnormality. MRI head, 01/12/2025: No acute cerebrovascular ischemia. Past Medical History HIV infection, syphilis Past Surgical History No major surgeries Family History: Diabetes mellitus G8 MOTHER G8 FATHER Diabetes mellitus (DM) Hypertension G8 MOTHER G8 FATHER Family History Hypertension, diabetes, ALS, peripheral arterial disease. His mother and one brother have migraine Social History He was a tobacco smoke, but no history of drug or alcohol abuse Allergies: Coded Allergies: NO KNOWN ALLERGIES (Unverified , 01/11/25) Home Meds Reported Medications Yhmbbuvhdxm-Sqaucbppxduma-Vxer (Biktarvy 50-200-25 mg) 1 Tab Tab, 1 TAB PO, TAB 01/12/25 Current Medications Current Medications Medications (Trade) Dose Ordered Sig/Taisha Route PRN Reason Start Time Stop Time Status Last Admin Patient Own Medication 1 DAILY PO 01/17/25 10:00 Sodium Chloride 1,000 ml @ 100 mls/hr Q10H IV 01/16/25 23:15 01/17/25 00:35 Aspirin 81 mg DAILY PO 01/17/25 10:00 01/17/25 12:30 Atorvastatin Calcium (Lipitor) 40 mg HS PO 01/17/25 22:00 Enoxaparin Sodium (Lovenox) 40 mg DAILY SC 01/17/25 10:00 01/17/25 12:31 Review of Systems As above, the other systems are negative Vital Signs Vital Signs Date Time Temp Pulse Resp B/P (MAP) Pulse Ox O2 Delivery O2 Flow Rate FiO2 01/17/25 13:00 98.1 67 18 150/100 (117) 98 98.1 01/17/25 02:56 Room Air* 0 21 Physical Exam GENERAL EXAM: General: the patient is well developed and nourished. No acute distress. HEENT: Normocephalic, neck is supple, no carotid bruits. No mass. RESPIRATORY: Normal respiratory effort with symmetrical lung expansion. Lungs clear to auscultation. CARDIOVASCULAR: Regular rate and rhythm with no murmurs. S1, S2. ABDOMEN: Soft, nontender, normal bowel sound NEUROLOGICAL: MENTAL STATUS: Awake and alert. Oriented to person, place, time and general circumstances. Able to give personal history. SPEECH, LANGUAGE, HIGHER CORTICAL FUNCTION: no aphasia or dysathria. CRANIAL NERVES: #2: Intact visual dyer to confrontation. The optic discs were sharp. #3,4,6: Pupils are equal, round and reactive. EOMs full and conjugate. No nystagmus. #5: Facial sensation intact in all three divisions bilaterally. Mandibular strength intact. #7: Facial muscles symmetrical and strength intact. #8: Hearing grossly normal to voice. #9,10: Uvula and soft palate rise in the midline. Swallow and voice are normal. #11: Trapezius and sternomastoid strength intact bilaterally. #12: Tongue midline. No fasciculations or atrophy. SENSATION: Sensation to touch and pinprick is normal. MOTOR: Normal tone in the upper and lower extremity. Normal muscle bulk. No fasciculations. No abnormal movements or posturing. Muscle strength of the major groups in the upper extremities is 5/5. Muscle strength of the major groups in the lower extremities is 5/5. REFLEXES: Deep tendon reflexes symmetrical. No pathological reflexes. CEREBELLAR/COORDINATION: Finger to nose and heel to martinez are normal bilaterally. GAIT/STATION: deferred. Labs/Diagnostic Data Labs Test 01/17/25 01:14 01/17/25 01:00 01/16/25 20:27 Range/Units White Blood Count 2.9 L 4.4-10.8 10^3/uL Red Blood Count 6.35 H 4.5-5.90 10^6/uL Hemoglobin 15.7 13.5-17.5 g/dL Hematocrit 48.0 # 41.0-53.0 % Mean Corpuscular Volume 75.6 L 80.0-100.0 fL Mean Corpuscular Hemoglobin 24.7 L 28.0-32.0 pg Mean Corpuscular Hemoglobin Concent 32.7 32.0-36.0 g/dL Red Cell Distribution Width 18.3 H 11.8-14.3 % Platelet Count 166 140-450 10^3/uL Mean Platelet Volume 8.1 6.9-10.8 fL Neutrophils (%) (Auto) 30.8 L 37.0-80.0 % Lymphocytes (%) (Auto) 42.2 10.0-50.0 % Monocytes (%) (Auto) 13.1 H 0.0-12.0 % Eosinophils (%) (Auto) 13.4 H 0.0-7.0 % Basophils (%) (Auto) 0.5 0.0-2.0 % Neutrophils # (Auto) 0.9 L 1.6-8.6 10 ^3/uL Lymphocytes # (Auto) 1.2 0.4-5.4 10 ^3/uL Monocytes # (Auto) 0.4 0-1.3 10 ^3/uL Eosinophils # (Auto) 0.4 0-0.8 10 ^3/uL Basophils # (Auto) 0 0-0.2 10 ^3/uL Nucleated Red Blood Cells 0.2 % Sodium Level 143 136-145 mmol/L Potassium Level 4.4 3.5-5.1 mmol/L Chloride Level 108 H 98-107 mmol/L Carbon Dioxide Level 29 20-31 mmol/L Anion Gap 6 5-15 Blood Urea Nitrogen 14 9-23 mg/dL Creatinine 1.32 H 0.700-1.30 mg/dL Glomerular Filtration Rate Calc 68 >90 mL/min BUN/Creatinine Ratio 10.6 10.0-20.0 Serum Glucose 93 74-106 mg/dL Calcium Level 7.8 L 8.7-10.4 mg/dL Urine Color Light-yellow Yellow Urine Clarity Clear Clear Urine pH 5.0 5.0-9.0 Urine Specific [place] 1.016 1.001-1.035 Urine Protein Negative Negative Urine Ketones Negative Negative Urine Blood Negative Negative /uL Urine Nitrite Negative Negative Urine Bilirubin Negative Negative Urine Urobilinogen Normal Negative mg/dL Urine Leukocyte Esterase Negative Negative /uL Urine RBC None seen 0 - 3 /hpf Urine Microscopic WBC < 1 0-3 /HPF Urine Squamous Epithelial Cells Few <5 /hpf Urine Bacteria None seen None Seen /hpf Urine Glucose Normal Normal mg/dL Urine Opiates Screen Neg NEGATIVE Urine Fentanyl Screen Neg NEGATIVE Urine Barbiturates Screen Neg NEGATIVE Urine Phencyclidine Screen Neg NEGATIVE Urine Amphetamines Screen Neg NEGATIVE Urine Benzodiazepines Screen Neg NEGATIVE Urine Cocaine Screen Neg NEGATIVE Urine Cannabinoids Screen Neg NEGATIVE Erythrocyte Sedimentation Rate 2 0-20 mm/hr Lactic Acid Level 0.9 0.4-2.0 mmol/L Phosphorus Level 3.7 2.4-5.1 mg/dL Magnesium Level 2.1 1.6-2.6 mg/dL Total Bilirubin 0.4 0.2-1.0 mg/dL Aspartate Amino Transferase (AST) 42 H 13-40 U/L Alanine Aminotransferase (ALT) 26 7-40 U/L Alkaline Phosphatase 57 46-116 U/L C-Reactive Protein High Sensitivity 0.12 <1.0 mg/dL Total Protein 7.0 5.7-8.2 g/dL Albumin 4.1 3.2-4.8 g/dL Vitamin D 25-Hydroxy 31.2 30.0-100 ng/mL Hepatitis A Antibody Total Negative Negative Hepatitis B Surface Antigen Negative Negative Hepatitis B Surface Antibody Negative Negative Hepatitis B Core Total Antibody Negative Negative Hepatitis C Antibody Negative Negative Microbiology Date/Time Source Procedure Growth Status 01/17/25 03:30 Nose MRSA Screen - Final Complete Assessment Confusion, altered mental status, memory loss, not confirmed with my evaluation HIV Syphilis, to rule out neurosyphilis Intermittent speech difficulty and whole-body jerking without ALOC, etiology unclear, rule out partial seizure/myoclonic seizure Plan/Recommendation Monitoring Supportive treatment Med surge EEG, DVT prophylax/pantoprazole More recommendation per clinical course Progress: Poor This medical document was created using an electronic medical record system with [employer] computerized dictation system. Although this document has been carefully reviewed, there may still be some phonetic and typographical errors. These areas are purely typographical due to imperfections of the software programs, and do not reflect any compromise in the patient's medical care. Plan discussed with: Patient, Other REBEKA LLAMAS MD Jan 17, 2025 16:55
[2025-01-17] MEDS: ACETAMINOPHEN 325 MG TAB PO ONE (20:11)
[2025-01-17] MEDS: ATORVASTATIN 20 MG TAB PO SCH (21:33)
[2025-01-18] VITALS (8 sets, daily range): BP systolic 132–157; BP diastolic 86–100; PULSE 55–85; RESP 17–20; TEMP 97.6–98.6; O2SAT 93–99
[2025-01-18 08:07] LABS: Kappa Lite Chain Free Serum 19.0 mg/L (3.3-19.4)
[2025-01-18 09:22] LABS: Hematocrit 54.4 % (41.0-53.0); Hemoglobin 17.4 g/dL (13.5-17.5); Mean Corpuscular Hemoglobin 24.3 pg (28.0-32.0); Mean Corpuscular Volume 75.8 fL (80.0-100.0); Nucleated Red Blood Cells % 0.4 %
[2025-01-18 09:56] LABS: Alanine Aminotransferase 23 U/L (7-40); Anion Gap 7 (5-15); BUN/Creatinine Ratio 11.7 (10.0-20.0); Blood Urea Nitrogen 15 mg/dL (9-23); Carbon Dioxide 29 mmol/L (20-31); Chloride 105 mmol/L (98-107); Glucose 95 mg/dL (74-106); Potassium 4.2 mmol/L (3.5-5.1); Sodium 141 mmol/L (136-145); Total Protein 6.5 g/dL (5.7-8.2)
[2025-01-18 09:57] LABS: Albumin 3.8 g/dL (3.2-4.8)
[2025-01-18 09:58] LABS: Bilirubin, Total 0.6 mg/dL (0.2-1.0)
[2025-01-18 10:02] LABS: Alkaline Phosphatase 45 U/L (46-116); Calcium 8.5 mg/dL (8.7-10.4)
--- NOTE | 2025-01-18 10:02 | DVHPN2 ---
Progress Note - Dictate Date Seen: Jan 18, 2025 Medical Necessity Reason Pt with a Central, PICC or Fol: No Subjective Mr. Champagne is a 44 years old right-handed gentleman with a history of HIV infection, syphilis with three penicillin injection, he came to the hospital on 01/14/2025 with a chief company of confused, speech changes, and gait disturbance. I have seen and examined the patient, I have discussed with his nurse, I have talked to Dr. Srivastava He is doing fine, alert and fully oriented, no new complaints He confirms that he stuttered and had problem to get words out, it took long time to think before he came to the hospital last time, but he also related, thought he has no history of anxiety, has been nervous for two weeks UDS, 01/17/2025: Negative RPR 01/14/2025: 1:1 Treatment edema pallidum antibody, 01/14/2025: Active Hepatitis panel, 01/16/25: Negative WBC/HB/PLT/MCV, 01/17/2025: 2.9/6.35/166/75.6 % CD4, 01/12/25: 40.3 Absolute CD4, 01/12/25: 524 % CD8, 01/12/2025: 47.5 Absolute CD8, 01/12/2025: 618 ESR, 01/16/25: 2 BUN/CR, 01/17/2025: 14/1.32 GFR, 02/03/2025: 68 C-reactive protein, 01/16/25: 0.12 Vitamin B12, 01/11/2025: 462 TSH, 01/11/2025: 1.86 CT head, 01/16/2025: No acute intracranial abnormality. MRI head, 01/12/2025: No acute cerebrovascular ischemia. vital signs Vital Sign Date Time Temp Pulse Resp B/P (MAP) Pulse Ox O2 Delivery O2 Flow Rate FiO2 01/18/25 08:30 98.6 55 20 139/87 (104) 95 98.6 01/17/25 20:00 Room Air* 0 21 Total Intake and Output 01/17/25 01/17/25 01/18/25 15:00 23:00 07:00 Intake Total 1300 ml 200 ml Balance 1300 ml 200 ml medications Current Medications Medications Dose Ordered Sig/Taisha Route Start Time Stop Time Status Last Admin Dose Admin Patient Own Medication 1 DAILY PO 01/17/25 10:00 Sodium Chloride 1,000 ml @ 100 mls/hr Q10H IV 01/16/25 23:15 01/17/25 00:35 100 MLS/HR Aspirin 81 mg DAILY PO 01/17/25 10:00 01/17/25 12:30 81 MG Atorvastatin Calcium 40 mg HS PO 01/17/25 22:00 01/17/25 21:33 40 MG Enoxaparin Sodium 40 mg DAILY SC 01/17/25 10:00 01/17/25 12:31 40 MG objective General: the patient is well developed and nourished. No acute distress. MENTAL STATUS: Awake and alert. Oriented to person, place, time and general circumstances. Able to give personal history. SPEECH, LANGUAGE, HIGHER CORTICAL FUNCTION: no aphasia or dysathria. CRANIAL NERVES: Pupils are equal, round and reactive. EOMs full and conjugate. No nystagmus. Facial sensation intact in all three divisions bilaterally. Mandibular strength intact. Facial muscles symmetrical and strength intact. Tongue midline. No fasciculations or atrophy. SENSATION: Sensation to touch and pinprick is normal. MOTOR: Normal tone in the upper and lower extremity. Normal muscle bulk. No fasciculations. No abnormal movements or posturing. Muscle strength of the major groups in the extremities is 5/5. REFLEXES: Deep tendon reflexes symmetrical. No pathological reflexes. CEREBELLAR/COORDINATION: Finger to nose and heel to martinez are normal bilaterally. GAIT/STATION: deferred laboratory and microbiology Laboratory Tests 01/18/25 08:58 Test 01/18/25 08:58 Range/Units Serum Glucose Pending Problem List Confusion, altered mental status, memory loss, not confirmed with my evaluation HIV Syphilis, to rule out neurosyphilis Intermittent speech difficulty, prolonged thinking process and whole-body jerking without ALOC, etiology unclear, rule out partial seizure/myoclonic seizure ? Nervousness Assessment/Plan Monitoring Supportive treatment Med surge EEG, DVT prophylax/pantoprazole Effects disease follow-up More recommendation per clinical course This medical document was created using an electronic medical record system with [employer] system. Although this document has been carefully reviewed, there may still be some phonetic and typographical errors. These areas are purely typographical due to imperfections of the software programs, and do not reflect any compromise in the patient's medical care. Prognosis poor Plan discussed with: Patient, Other Total Time (mins): 35 REBEKA LLAMAS MD Jan 18, 2025 10:02
[2025-01-18 12:07] LABS: Anti-Centromere B Antibody <0.2 AI (0.0-0.9); Anti-Jo-1 Antibody <0.2 AI (0.0-0.9); Anti-dsDNA Antibody 1 IU/mL (0-9); Antichromatin Antibody <0.2 AI (0.0-0.9); Antiscleroderma-70 Antibody <0.2 AI (0.0-0.9); Sjogren's Anti-SS-A Antibody <0.2 AI (0.0-0.9); Sjogren's Anti-SS-B Antibody <0.2 AI (0.0-0.9)
--- NOTE | 2025-01-18 15:54 | DVHPNRES ---
Progress Note Date Seen: Jan 18, 2025 Resident Creating Document: KIRILL SPEARS RESIDENT Medical Necessity Reason Pt with a Central, PICC or Fol: No Subjective Review of Systems Mr. Champagne is a 44 year old male with PMHx of HIV on Biktarvy and low testosterone on TRT, who presents today with chief complaint of confusion. The patient was recently admitted stating he had malaise, decrease, in his memory, difficulty putting words together, and recurrent falls. At the time the patient left AMA, however, he presents today with the same symptoms. Additionally refers stuttering, generalized weakness, and jerking of his head and on occasion his entire body. On evaluation in the ED, vitals were stable. initial labs show leukopenia, elevated open and hematocrit, creatinine 1.35, UA without significant findings and UDS negative. Chest x-ray shows no acute cardiopulmonary disease. Head CT shows no acute intracranial abnormality. Patient was recently admitted at [facility] with the same complaint.Patient was seen by infectious disease, recommended for Viral load, treponema pallidum abs, RPR, toxoplasma abs. Wait for neurology evaluation to determine need for lumbar puncture to check for HIV, cryptococcus and other possible etiologies, Continue Bictarvy, follow-up with ID as an outpatien. Treponema pallidum reactive A. Plan is to do lumbar puncture for CSF study but patient left AMA. Prior medical history: HIV, and low testosterone Past surgical history: Denies Family history: Grandmother with ALS Allergies: Denies Social: Denies drug and tobacco use. Refers rare alcohol consumption. Patient was seen today at bedside, labs and chart reviewed. Patient reported mild headache. Plan is to do a bedside lumbar puncture but patient prefers IR guided lumbar puncture. Patient is seen by Neurology, recommendation reviewed and appreciated. Objective vital signs Vital Sign Date Time Temp Pulse Resp B/P (MAP) Pulse Ox O2 Delivery O2 Flow Rate FiO2 01/18/25 13:00 98.0 67 20 147/88 (107) 95 98.0 01/18/25 08:00 Room Air* 0 21 Total Intake and Output 01/17/25 01/17/25 01/18/25 15:00 23:00 07:00 Intake Total 1300 ml 200 ml Balance 1300 ml 200 ml medications Current Medications Medications Dose Ordered Sig/Taisha Route Start Time Stop Time Status Last Admin Dose Admin Patient Own Medication 1 DAILY PO 01/17/25 10:00 01/18/25 11:29 1 Aspirin 81 mg DAILY PO 01/17/25 10:00 01/18/25 11:29 81 MG Atorvastatin Calcium 40 mg HS PO 01/17/25 22:00 01/17/25 21:33 40 MG Enoxaparin Sodium 40 mg DAILY SC 01/17/25 10:00 01/18/25 11:28 40 MG Examination General examination-awake, alert oriented HEENT- PEERLA, no acute nasal discharge Cardiovascular- S1-S2 audible, rate and rhythm regular, no murmur Respiratory- CTAB, no wheeze or rhonchi Gastrointestinal-nontender, bowel sound+. Nondistended Musculoskeletal-no acute joint swelling or tenderness or redness Lower extremity- no leg edema Neurological- cranial nerves intact, no acute dysarthria or dysphagia Psychiatry- denies depression or laboratory and microbiology Laboratory Tests 01/18/25 08:58 Test 01/18/25 08:58 Range/Units Serum Glucose 95 74-106 mg/dL Microbiology Date/Time Source Procedure Growth Status 01/17/25 03:30 Nose MRSA Screen - Final Complete 01/17/25 01:00 Voided Urine Urine Culture - Preliminary Resulted 01/16/25 20:27 Blood Blood Culture - Preliminary NO GROWTH AFTER 24 HOURS OF INCUBATION. Resulted Problem List/Assessment/Plan Problem List/Assessment/Plan Assessment and plan Possible acute metabolic encephalopathy likely due to neurosyphilis/HIV # suspected neurosyphilis - Neurology has been consulted - Head CT: No acute intracranial abnormalities -negative for acute hepatitis panel - Blood cultures no growth so far - Urine cultures < 10,000 CFU -plan is to do a lumbar puncture -intervention radiology guided likely tomorrow - continue current conservative management #Rule out hyperviscosity secondary to TRT - Hb 17.6, HCT 54.5 - JUSTEN comprehensive panel - EPO pending - Testosterone levels pending - [place] lambda lite chain pending #Polycythemia #Eosinophilia #Leukopenia - pending peripheral blood smear #Possible CRISTHIAN on CKD likely due to VM in/hemodynamically mediated - Monitor renal function - Avoid nephrotoxic drugs - IV fluids HIV - CD4 count: 524 ( 01/12/2025) - CD8 count: 618 ( 01/12/2025) - Continue Biktarvy 1 tablet daily Obesity, BMI 33.8 kg/m2 - I have counseled on healthy life style modifications Goals of care, Code status full code ; discussed with >15 minutes PUD prophylaxis: Not indicated DVT prophylaxis: Patient ambulating Plan discussed with Dr. Jones , nursing staff, Total time spent on patient evaluation, chart review, assessment and plan, discussion discussion >35 minutes Plan discussed with: Patient, Other (RN, GF ) Date of Service: Jan 18, 2025 Billing Provider[facility] Jan 18, 2025 15:54
[2025-01-18 16:50] LABS: INR 1.08 (0.9-1.15); Partial Thromboplastin Time 30.8 SEC (24.5-34.5); Prothrombin Time 11.4 sec (9.3-11.8)
--- NOTE | 2025-01-18 21:10 | DVHINCON2 ---
Date of service: Jan 18, 2025 Family History: Diabetes mellitus G8 MOTHER G8 FATHER Diabetes mellitus (DM) Hypertension G8 MOTHER G8 FATHER Allergies: Coded Allergies: NO KNOWN ALLERGIES (Unverified , 01/11/25) Home Meds Active Scripts Clbaxdxtavw-Srpeabxtkibhe-Rttp (Biktarvy 50-200-25 mg) 1 Tab Tab, 1 TAB PO DAILY for 90 Days, #90 TAB Prov:KIRILL SPEARS RESIDENT 01/20/25 Reported Medications Lorazepam (ATIVAN TABLET) 0.5 Mg Tb, 1 TAB PO DAILY PRN, #5 TAB 01/20/25 Lorazepam (Ativan) 0.5 Mg Tab, 0.5 MG PO DAILY PRN for 5 Days, #5 TAB 01/20/25 Ddwjmwsvekx-Utksbudkjedsu-Aany (Biktarvy 50-200-25 mg) 1 Tab Tab, 1 TAB PO, TAB 01/12/25 Discontinued Reported Medications Lorazepam (Ativan) 0.5 Mg Tab, 0.5 MG PO DAILY PRN for 5 Days, #5 TAB 01/20/25 Lorazepam (Ativan) 0.5 Mg Tab, 0.5 MG PO DAILY PRN, #5 TAB 01/20/25 Lorazepam (Ativan) 0.5 Mg Tab, 0.5 MG PO DAILY PRN, #5 TAB 01/20/25 Current Medications Current Medications Medications (Trade) Dose Ordered Sig/Taisha Route PRN Reason Start Time Stop Time Status Last Admin Atorvastatin Calcium (Lipitor) 40 mg HS PO 01/17/25 22:00 01/17/25 21:33 Acetaminophen (Tylenol Tablet) 650 mg Q6HP PRN PO MILD PAIN (1-3 PAIN SCALE) 01/18/25 21:00 Lisinopril (Zestril Tablet) 2.5 mg DAILY PO 01/19/25 10:00 Vital Signs Vital Signs Date Time Temp Pulse Resp B/P (MAP) Pulse Ox O2 Delivery O2 Flow Rate FiO2 01/18/25 20:39 98.1 69 19 149/96 (113) 97 98.1 01/18/25 08:00 Room Air* 0 21 Labs/Diagnostic Data Labs Test 01/18/25 16:22 01/18/25 08:58 01/17/25 01:14 10/13/25 01:00 Range/Units Prothrombin Time 11.4 9.3-11.8 sec Prothrombin Time INR 1.08 0.9-1.15 Activated Partial Thromboplast Time 30.8 24.5-34.5 SEC White Blood Count 2.7 L 4.4-10.8 10^3/uL Red Blood Count 7.18 H 4.5-5.90 10^6/uL Hemoglobin 17.4 13.5-17.5 g/dL Hematocrit 54.4 #H 41.0-53.0 % Mean Corpuscular Volume 75.8 L 80.0-100.0 fL Mean Corpuscular Hemoglobin 24.3 L 28.0-32.0 pg Mean Corpuscular Hemoglobin Concent 32.0 32.0-36.0 g/dL Red Cell Distribution Width 18.0 H 11.8-14.3 % Platelet Count 184 140-450 10^3/uL Mean Platelet Volume 8.0 6.9-10.8 fL Neutrophils (%) (Auto) 36.3 L 37.0-80.0 % Lymphocytes (%) (Auto) 37.9 10.0-50.0 % Monocytes (%) (Auto) 13.8 H 0.0-12.0 % Eosinophils (%) (Auto) 11.2 H 0.0-7.0 % Basophils (%) (Auto) 0.8 0.0-2.0 % Neutrophils # (Auto) 1.0 L 1.6-8.6 10 ^3/uL Lymphocytes # (Auto) 1.0 0.4-5.4 10 ^3/uL Monocytes # (Auto) 0.4 0-1.3 10 ^3/uL Eosinophils # (Auto) 0.3 0-0.8 10 ^3/uL Basophils # (Auto) 0 0-0.2 10 ^3/uL Nucleated Red Blood Cells 0.4 % Sodium Level 141 136-145 mmol/L Potassium Level 4.2 3.5-5.1 mmol/L Chloride Level 105 98-107 mmol/L Carbon Dioxide Level 29 20-31 mmol/L Anion Gap 7 5-15 Blood Urea Nitrogen 15 9-23 mg/dL Creatinine 1.28 0.700-1.30 mg/dL Glomerular Filtration Rate Calc 71 >90 mL/min BUN/Creatinine Ratio 11.7 10.0-20.0 Serum Glucose 95 74-106 mg/dL Calcium Level 8.5 L 8.7-10.4 mg/dL Total Bilirubin 0.6 0.2-1.0 mg/dL Aspartate Amino Transferase (AST) 22 13-40 U/L Alanine Aminotransferase (ALT) 23 7-40 U/L Alkaline Phosphatase 45 L 46-116 U/L Total Protein 6.5 5.7-8.2 g/dL Albumin 3.8 3.2-4.8 g/dL Anti-Nuclear Antibody Comment Comment . LUKAS-1 Antibody <0.2 0.0-0.9 AI SS-A/Ro Antibody <0.2 0.0-0.9 AI SS-B/La Antibody <0.2 0.0-0.9 AI Sm Antibody <0.2 0.0-0.9 AI HOSE FINISHER Antibody <0.2 0.0-0.9 AI Scl-70 (Scleroderma) Antibody <0.2 0.0-0.9 AI Anti-Double Strand DNA Antibody 1 0-9 IU/mL Chromatin Antibody <0.2 0.0-0.9 AI Centromere B Antibody <0.2 0.0-0.9 AI Free [place] Light Chains, Quant 19.0 3.3-19.4 mg/L Free [place]/Lambda Light Chain Ratio 0.92 0.26-1.65 Urine Color Light-yellow Yellow Urine Clarity Clear Clear Urine pH 5.0 5.0-9.0 Urine Specific [place] 1.016 1.001-1.035 Urine Protein Negative Negative Urine Ketones Negative Negative Urine Blood Negative Negative /uL Urine Nitrite Negative Negative Urine Bilirubin Negative Negative Urine Urobilinogen Normal Negative mg/dL Urine Leukocyte Esterase Negative Negative /uL Urine RBC None seen 0 - 3 /hpf Urine Microscopic WBC < 1 0-3 /HPF Urine Squamous Epithelial Cells Few <5 /hpf Urine Bacteria None seen None Seen /hpf Urine Glucose Normal Normal mg/dL Urine Opiates Screen Neg NEGATIVE Urine Fentanyl Screen Neg NEGATIVE Urine Barbiturates Screen Neg NEGATIVE Urine Phencyclidine Screen Neg NEGATIVE Urine Amphetamines Screen Neg NEGATIVE Urine Benzodiazepines Screen Neg NEGATIVE Urine Cocaine Screen Neg NEGATIVE Urine Cannabinoids Screen Neg NEGATIVE Test 01/16/25 20:27 Range/Units Erythrocyte Sedimentation Rate 2 0-20 mm/hr Lactic Acid Level 0.9 0.4-2.0 mmol/L Phosphorus Level 3.7 2.4-5.1 mg/dL Magnesium Level 2.1 1.6-2.6 mg/dL C-Reactive Protein High Sensitivity 0.12 <1.0 mg/dL Vitamin D 25-Hydroxy 31.2 30.0-100 ng/mL Hepatitis A Antibody Total Negative Negative Hepatitis B Surface Antigen Negative Negative Hepatitis B Surface Antibody Negative Negative Hepatitis B Core Total Antibody Negative Negative Hepatitis C Antibody Negative Negative Microbiology Date/Time Source Procedure Growth Status 01/17/25 03:30 Nose MRSA Screen - Final Complete 01/17/25 01:00 Voided Urine Urine Culture - Preliminary Resulted 01/16/25 20:27 Blood Blood Culture - Preliminary NO GROWTH AFTER 48 HOURS OF INCUBATION. Resulted Problems(with codes): (1) Altered mental status (2) HIV (human immunodeficiency virus infection) (3) Acute metabolic encephalopathy Plan/Recommendation ASSESSMENT AND PLAN: ID Problem List: -HIV infection; previously on Biktarvy (bictegravir/emtricitabine/tenofovir alafenamide); off therapy for several months due to lapsed copay assistance/cost -Acute kidney injury (Cr 1.51) -Daily headaches and insomnia -Confusion (presenting symptom) -Shortness of breath; generalized weakness; bilateral lower extremity weakness (4/5) and spasms; neuropathic symptoms in lower extremities -Recent sinus infection (~2 weeks ago) -Prior syphilis (previously treated); 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 Afebrile with WBC 4.7; influenza A/B and COVID-19 negative; lactic acid 1.1. Creatinine 1.51 (CRISTHIAN). Neurologic exam nonfocal aside from mild symmetric lower extremity weakness; sensation intact. Given the afebrile state, normal WBC, and lucid exam, there is low overall suspicion for acute bacterial meningitis. Differential includes opportunistic and non- opportunistic [employer] processes (e.g., cryptococcal disease, toxoplasmosis, viral etiologies), though risk is tempered by CD4 >200. Neurosyphilis is considered unlikely given low-titer RPR (1:1) and clinical context. Plan -Diagnostics (serum): -HIV viral load -Cryptococcal antigen (serum) -Toxoplasma serologies -CMV viral load or CMV antibodies -Lumbar puncture with CSF studies: -Cell count with differential, protein, glucose -Bacterial culture -VDRL -Cryptococcal antigen (CSF) -Toxoplasma antibodies (CSF) -HSV-1/2 PCR -Viral culture -Fungal culture -Coccidioides complement fixation (CSF) -Antimicrobials: -Hold empiric antibiotic treatment at this time. -HIV therapy: -Hold Biktarvy for now until CRISTHIAN is resolved and after further evaluation following lumbar puncture. -Disposition/Follow-up: -Patient follows in HIV clinic; further management to be guided by LP and serum test results. Isolation Precautions: Not provided in transcript. Plan is subject to change pending incorporation of new diagnostic results. Electronically signed by: Nelly Fisher MD, 01/20/2025 History: -Mr. Ernesto Champagne, 44-year-old male with HIV diagnosed three years ago; previously compliant on Biktarvy until several months ago when copay assistance lapsed and he could not afford medication. No acute HIV-related symptoms in in prior to the recent lapse. -Presents after early January ED visit for confusion, shortness of breath, weakness (legs about to give out), daily headaches, insomnia, and limb spasms. Reports recent sinus infection (~2 weeks ago). No diarrhea or rash; no fevers or chills. -Recent hospitalization for HIV infection and CRISTHIAN; left AMA prior to lumbar puncture. Toxicology reportedly negative. -CD4 524 cells/L, CD4% 40.3; HIV viral load unknown. -Prior syphilis (treated); current RPR 1:1; treponemal antibodies ordered. History obtained from: patient (per transcript). Review of Systems: -Constitutional: No fevers or chills. Reports generalized weakness and insomnia. -HEENT: Recent sinus infection (~2 weeks ago). -Eyes: Normal vision bilaterally. -Respiratory: Shortness of breath. -Cardiovascular: Not discussed. -Gastrointestinal: No diarrhea reported. -Genitourinary: Not discussed. -Musculoskeletal: Limb spasms; reports legs feel weak. -Skin: No rash reported. -Neurological: Confusion; daily headaches; bilateral lower extremity weakness. No focal deficits reported; no loss of sensation reported. -Psychiatric: Insomnia. -Endocrine/Heme/Allergy/Immunology: HIV infection; otherwise not discussed. Past Medical History: -HIV infection (diagnosed ~3 years ago) -Acute kidney injury (current) -Syphilis, previously treated Past Surgical History: -Not provided in transcript. Home Medications: -Biktarvy (bictegravir/emtricitabine/tenofovir alafenamide) previously compliant; out of medication for several months due to cost/copay assistance lapse; currently held. Allergies: -Not provided in transcript. Family History: -Not provided in transcript. Social History: -Has a fiance; not using protection. -History of testosterone use associated with workouts. -Tobacco, alcohol, and other substances: Not provided in transcript. Objective: Vital Signs on Arrival: -Not provided in transcript. Most Recent Vital Signs: -Temperature: 97.7 F -Heart rate: 94 bpm (note: a pulse of 70 bpm was also mentioned earlier in transcript) -Respiratory rate: Not provided in transcript. -Blood pressure: Reported ambiguously as one ten thirty seven over 85 (unable to interpret precisely from transcript) -SpO2: Not provided; patient on room air. Admission Weight/BMI: -Not provided in transcript. Physical Exam: General: NAD Neck: Supple. No masses. HEENT: PERRL. Normal lids and conjunctiva. Moist mucous membranes. Oropharynx without lesions, exudates, or excessive erythema. Normal appearance of the external aspects of the nose and ears. Heart: Regular rhythm, normal rate. No murmur. No lower extremity edema. Lungs: Normal respiratory effort. Clear to auscultation bilaterally. No wheezes. No crackles. Abdomen: Soft. Non-tender. Non-distended. No masses or abdominal hernia. Msk: No digital cyanosis. 4/5 strength in bilateral lower extremities; normal strength in upper extremities. Normal tone. Skin: Warm and dry, no rashes. Neuro: Alert and oriented x4. No facial droop or slurred speech. Extra-ocular movements intact. Pupils reactive. Sensation intact to soft touch in all 4 limbs. No focal deficits on exam. Psych: Appropriate mood. Full affect. Oriented to person, place, time, and situation. Lines: -Not provided in transcript. Diagnostic Studies: -Hematology: WBC 4.7 K/L; Hemoglobin 18.0 g/dL; Platelets 180 K/L. -Chemistry: Creatinine 1.51 mg/dL; BUN 19 mg/dL; Sodium 143 mmol/L; Total protein 6.4 g/dL. -LFTs: AST 19 U/L; ALT 25 U/L. -Infectious testing: Influenza A negative; Influenza B negative; COVID-19 negative. -HIV immune markers: CD4 524 cells/L; CD4% 40.3; HIV viral load not available. -Other: Lactic acid 1.1 mmol/L; Hemoglobin A1c 5.7%. -Syphilis serology: RPR 1:1; treponemal antibodies ordered. -Toxicology: Recently hospitalized; negative for acute toxins (per transcript). Available diagnostic studies were reviewed. Significant results are outlined above and addressed in the Assessment and Plan. Pertinent Imaging: -Not provided in transcript. Plan discussed with: Patient NELLY FISHER MD Jan 18, 2025 21:10
[2025-01-18] MEDS: LISINOPRIL 5 MG TAB PO ONE (21:23)
[2025-01-18] MEDS: ACETAMINOPHEN 325 MG TAB PO PRN (21:26)
[2025-01-18] MEDS: LORazepam 2MG/ML-1ML VIAL IV ONE (21:29)
--- NOTE | 2025-01-18 22:52 | DVHEEG2 ---
Neurology EEG Procedural Note Procedural Note EXAM DATE: 01/18/2025 REFERRING DOCTOR: Dr. Llamas TECHNIQUE: Eighteen channels of EEG, 2 channels of EOG, and 1 channel of EKG were recorded using the International 10/20 system. CLINICAL DATA: The patient was referred for an EEG evaluation for the evidence of seizure disorder. MEDICATIONS: See the chart BACKGROUND ACTIVITY: He keeps moving during esterase coughing, the background activity consisted of well regulated 9-19 Hz rhythmic waveforms, symmetrically distributed over both posterior quadrants and was reactive to eye opening. ACTIVATION: Hyperventilation: Not done Photic Stimulation: Not done Sleep: Not seen IMPRESSION: This is a normal EEG. No focal, lateralized, or epileptiform features are noted. If clinically indicated to rule out a seizure disorder, recommend repeat EEG with sleep deprivation. The EKG channel showed a regular heart rate of 68 per [place] [address] REBEKA LLAMAS MD Jan 18, 2025 22:52
[2025-01-19] VITALS (8 sets, daily range): BP systolic 121–148; BP diastolic 70–91; PULSE 50–75; RESP 16–18; TEMP 97.6–98.4; O2SAT 94–97
[2025-01-19 08:17] LABS: Hematocrit 55.4 % (41.0-53.0); Hemoglobin 17.9 g/dL (13.5-17.5); Mean Corpuscular Hemoglobin 24.4 pg (28.0-32.0); Mean Corpuscular Volume 75.5 fL (80.0-100.0); Nucleated Red Blood Cells % 0.9 %
[2025-01-19] MEDS: LIDOCAINE 2%HCL (LOCAL ANESTH.) INJ 10ml MDV ONE (08:28)
[2025-01-19 08:34] LABS: Alanine Aminotransferase 32 U/L (7-40); Albumin 3.9 g/dL (3.2-4.8); Alkaline Phosphatase 47 U/L (46-116); Anion Gap 7 (5-15); BUN/Creatinine Ratio 12.9 (10.0-20.0); Bilirubin, Total 0.6 mg/dL (0.2-1.0); Blood Urea Nitrogen 18 mg/dL (9-23); Calcium 8.8 mg/dL (8.7-10.4); Carbon Dioxide 29 mmol/L (20-31); Chloride 104 mmol/L (98-107); Glucose 88 mg/dL (74-106); Potassium 4.8 mmol/L (3.5-5.1); Sodium 140 mmol/L (136-145); Total Protein 6.6 g/dL (5.7-8.2)
--- NOTE | 2025-01-19 09:55 | DVH ---
LUMBAR PUNCTURE HISTORY: LP PROCEDURE/FINDINGS: Informed consent was obtained. Risks versus benefits were discussed. Patient unde rstands and consents to the procedure. An initial timeout was conducted correctly identifying the pat ient with the desired procedure of diagnostic lumbar puncture. Lab values were reviewed and found to be acceptable. Fluoroscopy time : 0.2 minutes Once a suitable site for lumbar puncture was determined fluoroscopically, the overlying skin was prep ped and draped in the usual sterile fashion and anesthetized with 1% lidocaine. the thecal sac was pu nctured at the L3-L4 level using a 22 gauge spinal needle with expression of clear cerebral spinal fl uid. The pressure was not elevated . I was only able to collect 5 cc of clear CSF into 4 tubes and submitted to the laboratory for analysis. The patient tolerated the procedure well without any immedi ate complications and transferred to ambulatory for routine recovery. IMPRESSION: 1. Diagnostic lumbar puncture. Laboratory analysis pending.
--- NOTE | 2025-01-19 10:05 | DVHDSRES ---
Discharge Summary Date of Admission Resident Creating Document: KIRILL SEPARS RESIDENT Jan 16, 2025 at 23:05 Date of Discharge: Jan 19, 2025 Admitting Diagnosis Suspected metabolic encephalopathy likely due to neurosyphilis/AIDS Labs/Diagnostic Data: Laboratory Results Test 01/19/25 07:12 01/18/25 16:22 01/17/25 01:14 01/17/25 01:00 White Blood Count 3.0 10^3/uL (4.4-10.8) Red Blood Count 7.33 10^6/uL (4.5-5.90) Hemoglobin 17.9 g/dL (13.5-17.5) Hematocrit 55.4 % (41.0-53.0) Mean Corpuscular Volume 75.5 fL (80.0-100.0) Mean Corpuscular Hemoglobin 24.4 pg (28.0-32.0) Mean Corpuscular Hemoglobin Concent 32.4 g/dL (32.0-36.0) Red Cell Distribution Width 18.2 % (11.8-14.3) Platelet Count 174 10^3/uL (140-450) Mean Platelet Volume 8.1 fL (6.9-10.8) Neutrophils (%) (Auto) 40.0 % (37.0-80.0) Lymphocytes (%) (Auto) 35.5 % (10.0-50.0) Monocytes (%) (Auto) 14.0 % (0.0-12.0) Eosinophils (%) (Auto) 9.9 % (0.0-7.0) Basophils (%) (Auto) 0.6 % (0.0-2.0) Neutrophils # (Auto) 1.2 10 ^3/uL (1.6-8.6) Lymphocytes # (Auto) 1.1 10 ^3/uL (0.4-5.4) Monocytes # (Auto) 0.4 10 ^3/uL (0-1.3) Eosinophils # (Auto) 0.3 10 ^3/uL (0-0.8) Basophils # (Auto) 0 10 ^3/uL (0-0.2) Nucleated Red Blood Cells 0.9 % Sodium Level 140 mmol/L (136-145) Potassium Level 4.8 mmol/L (3.5-5.1) Chloride Level 104 mmol/L (98-107) Carbon Dioxide Level 29 mmol/L (20-31) Anion Gap 7 (5-15) Blood Urea Nitrogen 18 mg/dL (9-23) Creatinine 1.40 mg/dL (0.700-1.30) Glomerular Filtration Rate Calc 64 mL/min (>90) BUN/Creatinine Ratio 12.9 (10.0-20.0) Serum Glucose 88 mg/dL (74-106) Calcium Level 8.8 mg/dL (8.7-10.4) Total Bilirubin 0.6 mg/dL (0.2-1.0) Aspartate Amino Transferase (AST) 26 U/L (13-40) Alanine Aminotransferase (ALT) 32 U/L (7-40) Alkaline Phosphatase 47 U/L (46-116) Total Protein 6.6 g/dL (5.7-8.2) Albumin 3.9 g/dL (3.2-4.8) Prothrombin Time 11.4 sec (9.3-11.8) Prothrombin Time INR 1.08 (0.9-1.15) Activated Partial Thromboplast Time 30.8 SEC (24.5-34.5) Anti-Nuclear Antibody Comment Comment (.) LUKAS-1 Antibody <0.2 AI (0.0-0.9) SS-A/Ro Antibody <0.2 AI (0.0-0.9) SS-B/La Antibody <0.2 AI (0.0-0.9) Sm Antibody <0.2 AI (0.0-0.9) LITHOGRAPHING MACHINE OPERATOR Antibody <0.2 AI (0.0-0.9) Scl-70 (Scleroderma) Antibody <0.2 AI (0.0-0.9) Anti-Double Strand DNA Antibody 1 IU/mL (0-9) Chromatin Antibody <0.2 AI (0.0-0.9) Centromere B Antibody <0.2 AI (0.0-0.9) Free [place] Light Chains, Quant 19.0 mg/L (3.3-19.4) Free [place]/Lambda Light Chain Ratio 0.92 (0.26-1.65) Urine Color Light-yellow (Yellow) Urine Clarity Clear (Clear) Urine pH 5.0 (5.0-9.0) Urine Specific [place] 1.016 (1.001-1.035) Urine Protein Negative (Negative) Urine Ketones Negative (Negative) Urine Blood Negative /uL (Negative) Urine Nitrite Negative (Negative) Urine Bilirubin Negative (Negative) Urine Urobilinogen Normal mg/dL (Negative) Urine Leukocyte Esterase Negative /uL (Negative) Urine RBC None seen /hpf (0 - 3) Urine Microscopic WBC < 1 /HPF (0-3) Urine Squamous Epithelial Cells Few /hpf (<5) Urine Bacteria None seen /hpf (None Seen) Urine Glucose Normal mg/dL (Normal) Urine Opiates Screen Neg (NEGATIVE) Urine Fentanyl Screen Neg (NEGATIVE) Urine Barbiturates Screen Neg (NEGATIVE) Urine Phencyclidine Screen Neg (NEGATIVE) Urine Amphetamines Screen Neg (NEGATIVE) Urine Benzodiazepines Screen Neg (NEGATIVE) Urine Cocaine Screen Neg (NEGATIVE) Urine Cannabinoids Screen Neg (NEGATIVE) Test 01/16/25 20:27 Erythrocyte Sedimentation Rate 2 mm/hr (0-20) Lactic Acid Level 0.9 mmol/L (0.4-2.0) Phosphorus Level 3.7 mg/dL (2.4-5.1) Magnesium Level 2.1 mg/dL (1.6-2.6) C-Reactive Protein High Sensitivity 0.12 mg/dL (<1.0) Vitamin D 25-Hydroxy 31.2 ng/mL (30.0-100) Hepatitis A Antibody Total Negative (Negative) Hepatitis B Surface Antigen Negative (Negative) Hepatitis B Surface Antibody Negative (Negative) Hepatitis B Core Total Antibody Negative (Negative) Hepatitis C Antibody Negative (Negative) Other Laboratory Tests 01/19/25 07:12 Brief Hx & Hospital Course: Mr. Mar is a 44 year old male with PMHx of HIV on Biktarvy and low testosterone on TRT, who presents today with chief complaint of confusion. The patient was recently admitted stating he had malaise, decrease, in his memory, difficulty putting words together, and recurrent falls. At the time the patient left [place], however, he presents today with the same symptoms. Additionally refers stuttering, generalized weakness, and jerking of his head and on occasion his entire body. On evaluation in the ED, vitals were stable. initial labs show leukopenia, elevated open and hematocrit, creatinine 1.35, UA without significant findings and UDS negative. Chest x-ray shows no acute cardiopulmonary disease. Head CT shows no acute intracranial abnormality. Patient was recently admitted at [facility] [place] with the same complaint.Patient was seen by infectious disease, recommended for Viral load, treponema pallidum abs, RPR, toxoplasma abs. Wait for neurology evaluation to determine need for lumbar puncture to check for HIV, cryptococcus and other possible etiologies, Continue Bictarvy, follow-up with ID as an outpatien. Treponema pallidum reactive A. Operations or Procedures [place] [address] Ph: [phone] DIAGNOSTIC IMAGING Diagnostic Imaging Report : [id number] Signed PATIENT: CLIVE MARCCT: [id number] UNIT: [id number] : 1980 LOC: ER ROOM / BED: / AGE / SEX: 44 / M ADM STATUS: REG ER SERVICE 14 ORDERING PHYSICIAN: MASOOD BRANCH MD PROCEDURE(s): HWOCT - HEAD WITHOUT CONTRAST REASON: ALOC / HIV ORDER NUMBER(s): [id number], ACCESSION NUMBER(s): [id number] EXAM: CT HEAD WITHOUT CONTRAST INDICATION: ALOC / HIV TECHNIQUE: CT of the head without intravenous contrast. Radiation Dose Information: CT Dose: CTDI volume is 57.24 mGy. Dose-length product is 915.81 mGy*cm The dose indicators for CT are the volume Computed Tomography (CT) Dose Index (CTDIvol) and the Dose Length Product (DLP), and are measured in units of mGy and mGy-cm, respectively. These indicators are not patient dose, but values generated from the CT scanner acquisition factors. The report includes radiation exposure data for exposures received during this examination. COMPARISON: MRI BRAIN HEAD WO CONTRAST on DOS: 01/12/25, CT HEAD WITHOUT CONTRAST on DOS: 01/11/25 FINDINGS: There is no evidence of acute intracranial hemorrhage, extra-axial collection, mass effect, midline shift, herniation or hydrocephalus. The ventricles, sulci and cisterns are age appropriate. The damico-white differentiation is intact. The visualized paranasal sinuses and mastoid air cells are clear. The surrounding soft tissues and osseous structures are unremarkable. IMPRESSION: No acute intracranial abnormality. ATED BY: RICARDO CLAYTON MD DICTATED DATE/TIME: 01/16/252046 SIGNED BY: RICARDO CLAYTON MD SIGNED DATE/TIME: 01/16/252046 CC: [place] [id number] Ph: [phone] DIAGNOSTIC IMAGING Diagnostic Imaging Report : [id number] Signed PATIENT: CLIVE MARCCT: [id number] UNIT: [id number] : 1980 LOC: ER ROOM / BED: / AGE / SEX: 44 / M ADM STATUS: REG ER SERVICE 14 ORDERING PHYSICIAN: MASOOD BRANCH MD PROCEDURE(s): CXRP - CHEST PORTABLE REASON: SOB ORDER NUMBER(s): [id number], ACCESSION NUMBER(s): [id number] CHEST RADIOGRAPH Indication: SOB Technique: Single frontal view of the chest was obtained Comparison: XY CHEST PORTABLE on DOS: 01/11/25 FINDINGS: Lines and Tubes: None Lungs: No focal consolidation. Pleura: No effusion. No pneumothorax. Cardiomediastinal contours: Unremarkable Bones: No acute osseous abnormality. IMPRESSION: 1. No acute cardiopulmonary disease. 2. No significant change from 01/11/2025 ATED BY: KANNAN CARRIZALES Jr., DO DICTATED DATE/TIME: 01/16/252047 SIGNED BY: KANNAN CARRIZALES Jr., SIGNED DATE/TIME: 01/16/252047 CC: [address] [address] Ph: [phone] DIAGNOSTIC IMAGING Diagnostic Imaging Report : [id number] Signed PATIENT: CLIVE MARCCT: [id number] UNIT: [id number] : 1980 LOC: [facility] ROOM / BED: [facility] / A AGE / SEX: 44 / M ADM STATUS: ADM IN SERVICE 7 ORDERING PHYSICIAN: MEREDITH SKY MD PROCEDURE(s): LMPC - LUMBAR PUNCTURE REASON: LP ORDER NUMBER(s): [id number], ACCESSION NUMBER(s): [id number] LUMBAR PUNCTURE HISTORY: LP PROCEDURE/FINDINGS: Informed consent was obtained. Risks versus benefits were discussed. Patient understands and consents to the procedure. An initial timeout was conducted correctly identifying the patient with the desired procedure of diagnostic lumbar puncture. Lab values were reviewed and found to be acceptable. Fluoroscopy time : 0.2 minutes Once a suitable site for lumbar puncture was determined fluoroscopically, the overlying skin was prepped and draped in the usual sterile fashion and anesthetized with 1% lidocaine. the thecal sac was punctured at the L3-L4 level using a 22 gauge spinal needle with expression of clear cerebral spinal fluid. The pressure was not elevated . I was only able to collect 5 cc of clear CSF into 4 tubes and submitted to the laboratory for analysis. The patient tolerated the procedure well without any immediate complications and transferred to ambulatory for routine recovery. IMPRESSION: 1. Diagnostic lumbar puncture. Laboratory analysis pending. ATED BY: MEREDITH SKY MD DICTATED DATE/TIME: 01/19/25952 SIGNED BY: MEREDITH SKY MD SIGNED DATE/TIME: 01/19/25952 CC: Condition at Discharge: Stable Final Diagnosis/Problems List #Possible acute metabolic encephalopathy likely due to neurosyphilis/HIV # suspected neurosyphilis #Rule out hyperviscosity secondary to TRT #Polycythemia #Eosinophilia #Leukopenia #Possible CRISTHIAN on CKD likely due to VM in/hemodynamically mediated #HIV #Obesity Discharge Disposition: Home Discharge Instruct/Medications Diet: Regular Activity: No Restrictions, As Tolerated Follow Up/Referral: Please follow up in the discharge clinic in 1-2 weeks Please follow up with the primary care physician in 1-2 weeks Please follow up with the infectious disease doctor Dr. Terrance Bunn in 2 weeks with a report of CSF study Medications: Please resume home medications Miscellaneous Medications Ejuxumokgrb-Alosdievsrxql-Bqet (Biktarvy 50-200-25 mg), 1 TAB PO, (Reported) Discharge Statement: "Patient was advised to return to the ER or call 911 if any headaches, dizziness, shortness of breath, chest pain, abdominal pain, bleeding, fevers, or worsening of medical condition. Patient was counseled about treatment plan, medications, possible side effects, patientverbalized understanding. All questions were answered to the best of my ability. This discharge took greater then 30 minutes in planning, reviewing documentation, counseling the patient, and discussing with other team members." ASSESSMENT ASSESSMENT Assessment KIRILL SPEARS RESIDENT Jan 19, 2025 10:05
[2025-01-19] MEDS: LISINOPRIL 5 MG TAB PO SCH (10:33)
[2025-01-19 10:38] LABS: Protein, CSF 129.0 mg/dL (15-45)
--- NOTE | 2025-01-19 10:40 | DVHPN2 ---
Progress Note - Dictate Date Seen: Jan 19, 2025 Medical Necessity Reason Pt with a Central, PICC or Fol: No Subjective Mr. Champagne is a 44 years old right-handed gentleman with a history of HIV infection, syphilis with three penicillin injection, he came to the hospital on 01/14/2025 with a chief company of confused, speech changes, and gait disturbance. I have seen and examined the patient, I have discussed with his nurse, he is doing fine, alert and fully oriented, no new complaints He has a puncture today UDS, 01/17/2025: Negative RPR 01/14/2025: 1:1 Treatment edema pallidum antibody, 01/14/2025: Active Hepatitis panel, 01/16/25: Negative WBC/HB/PLT/MCV, 01/17/2025: 2.9/6.35/166/75.6 % CD4, 01/12/25: 40.3 Absolute CD4, 01/12/25: 524 % CD8, 01/12/2025: 47.5 Absolute CD8, 01/12/2025: 618 ESR, 01/16/25: 2 BUN/CR, 01/17/2025: 14/1.32 GFR, 02/03/2025: 68 C-reactive protein, 01/16/25: 0.12 Vitamin B12, 01/11/2025: 462 TSH, 01/11/2025: 1.86 EEG, 01/18/2025: Normal CT head, 01/16/2025: No acute intracranial abnormality. MRI head, 01/12/2025: No acute cerebrovascular ischemia. vital signs Vital Sign Date Time Temp Pulse Resp B/P (MAP) Pulse Ox O2 Delivery O2 Flow Rate FiO2 01/19/25 10:33 129/89 01/19/25 09:30 98.4 57 16 97 98.4 01/19/25 08:00 Room Air* 0 21 Total Intake and Output 01/18/25 01/18/25 01/19/25 15:00 23:00 07:00 Intake Total 640 ml 480 ml Balance 640 ml 480 ml medications Current Medications Medications Dose Ordered Sig/Taisha Route Start Time Stop Time Status Last Admin Dose Admin Patient Own Medication 1 DAILY PO 01/17/25 10:00 01/19/25 10:33 1 Aspirin 81 mg DAILY PO 01/17/25 10:00 01/19/25 10:32 81 MG Atorvastatin Calcium 40 mg HS PO 01/17/25 22:00 01/18/25 21:25 40 MG Enoxaparin Sodium 40 mg DAILY SC 01/17/25 10:00 01/19/25 10:34 40 MG Acetaminophen 650 mg Q6HP PRN PO 01/18/25 21:00 01/18/25 21:26 650 MG Lisinopril 2.5 mg DAILY PO 01/19/25 10:00 01/19/25 10:33 2.5 MG objective General: the patient is well developed and nourished. No acute distress. MENTAL STATUS: Awake and alert. Oriented to person, place, time and general circumstances. Able to give personal history. SPEECH, LANGUAGE, HIGHER CORTICAL FUNCTION: no aphasia or dysathria. CRANIAL NERVES: Pupils are equal, round and reactive. EOMs full and conjugate. No nystagmus. Facial sensation intact in all three divisions bilaterally. Mandibular strength intact. Facial muscles symmetrical and strength intact. Tongue midline. No fasciculations or atrophy. SENSATION: Sensation to touch and pinprick is normal. MOTOR: Normal tone in the upper and lower extremity. Normal muscle bulk. No fasciculations. No abnormal movements or posturing. Muscle strength of the major groups in the extremities is 5/5. REFLEXES: Deep tendon reflexes symmetrical. No pathological reflexes. CEREBELLAR/COORDINATION: Finger to nose and heel to martinez are normal bilaterally. GAIT/STATION: deferred laboratory and microbiology Laboratory Tests 01/19/25 07:12 Test 01/19/25 07:12 Range/Units Serum Glucose 88 74-106 mg/dL Problem List Confusion, altered mental status, memory loss, not confirmed with my evaluation HIV Syphilis, to rule out neurosyphilis Intermittent speech difficulty, prolonged thinking process and whole-body jerking without ALOC, etiology unclear, rule out partial seizure/myoclonic seizure ? Nervousness Assessment/Plan Monitoring Supportive treatment Med surge CSF profile reports DVT prophylax/pantoprazole Effects disease follow-up More recommendation per clinical course This medical document was created using an electronic medical record system with [employer] system. Although this document has been carefully reviewed, there may still be some phonetic and typographical errors. These areas are purely typographical due to imperfections of the software programs, and do not reflect any compromise in the patient's medical care. Plan discussed with: Patient, Other REBEKA LLAMAS MD Jan 19, 2025 10:40
[2025-01-19 11:01] LABS: Description,CSF CLEAR
[2025-01-19 11:02] LABS: CSF Red Blood Cells 113 CUMM (0-5)
[2025-01-19] MEDS ORDERED: VANCOMYCIN PER PHARMACY 0 MG IV SCH (14:30)
[2025-01-19] MEDS: VANCOMYCIN 1GM/250ML KIT 250 ML IV ONE (17:52)
--- NOTE | 2025-01-19 18:05 | DVHPNRES ---
Progress Note Date Seen: Jan 19, 2025 Resident Creating Document: KIRILL SPEARS RESIDENT Medical Necessity Reason Pt with a Central, PICC or Fol: No Subjective Review of Systems Mr. Champagne is a 44 year old male with PMHx of HIV on Biktarvy and low testosterone on TRT, who presents today with chief complaint of confusion. The patient was recently admitted stating he had malaise, decrease, in his memory, difficulty putting words together, and recurrent falls. At the time the patient left [place], however, he presents today with the same symptoms. Additionally refers stuttering, generalized weakness, and jerking of his head and on occasion his entire body. On evaluation in the ED, vitals were stable. initial labs show leukopenia, elevated open and hematocrit, creatinine 1.35, UA without significant findings and UDS negative. Chest x-ray shows no acute cardiopulmonary disease. Head CT shows no acute intracranial abnormality. Patient was recently admitted at [facility] with the same complaint.Patient was seen by infectious disease, recommended for Viral load, treponema pallidum abs, RPR, toxoplasma abs. Wait for neurology evaluation to determine need for lumbar puncture to check for HIV, cryptococcus and other possible etiologies, Continue Bictarvy, follow-up with ID as an outpatien. Treponema pallidum reactive A. Plan is to do lumbar puncture for CSF study but patient left A[place]. Prior medical history: HIV, and low testosterone Past surgical history: Denies Family history: Grandmother with ALS Allergies: Denies Social: Denies drug and tobacco use. Refers rare alcohol consumption. Patient was seen today at bedside, labs and chart reviewed. Patient had IR guided lumbar puncture done today. Initial CSF study revealed WBC 15, RBC 113, protein 129, mononuclear cell 90, polymorphonuclears 10, glucose 52. Pending culture report. Pending CSF IgG, CSF VDRL, cryptococcus, herpes, toxoplasma, VDRL, bacterial culture. Spoke to Dr. Terrance Bunn infectious Disease recommended to start ceftriaxone and vancomycin. Objective vital signs Vital Sign Date Time Temp Pulse Resp B/P (MAP) Pulse Ox O2 Delivery O2 Flow Rate FiO2 01/19/25 17:03 98.4 72 18 129/88 (102) 94 98.4 01/19/25 08:00 Room Air* 0 21 Total Intake and Output 01/18/25 01/18/2501/19/25 15:00 23:00 07:00 Intake Total 640 ml 480 ml Balance 640 ml 480 ml medications Current Medications Medications Dose Ordered Sig/Taisha Route Start Time Stop Time Status Last Admin Dose Admin Patient Own Medication 1 DAILY PO 01/17/25 10:00 01/19/25 10:33 1 Aspirin 81 mg DAILY PO 01/17/25 10:00 01/19/25 10:32 81 MG Atorvastatin Calcium 40 mg HS PO 01/17/25 22:00 01/18/25 21:25 40 MG Acetaminophen 650 mg Q6HP PRN PO 01/18/25 21:00 01/19/25 16:34 650 MG Lisinopril 2.5 mg DAILY PO 01/19/25 10:00 01/19/25 10:33 2.5 MG Ceftriaxone Sodium/Dextrose 50 ml @ 50 mls/hr Q12HR@09,21 IV 01/19/25 14:30 01/19/25 16:31 50 MLS/HR Vancomycin HCl 0 ml @ 0 mls/hr UD IV 01/19/25 14:30 Examination General examination-awake, alert oriented HEENT- PEERLA, no acute nasal discharge Cardiovascular- S1-S2 audible, rate and rhythm regular, no murmur Respiratory- CTAB, no wheeze or rhonchi Gastrointestinal-nontender, bowel sound+. Nondistended Musculoskeletal-no acute joint swelling or tenderness or redness Lower extremity- no leg edema Neurological- cranial nerves intact, no acute dysarthria or dysphagia Psychiatry- denies depression or laboratory and microbiology Laboratory Tests 01/19/25 07:12 Test 01/19/25 07:12 Range/Units Serum Glucose 88 74-106 mg/dL Microbiology Date/Time Source Procedure Growth Status 01/19/25 09:15 Cerebral Spinal Fluid Gram Stain - Final Resulted 01/19/25 09:15 Cerebral Spinal Fluid CSF Culture & Gram Stain (Tube 2) M Pending Resulted 01/17/25 03:30 Nose MRSA Screen - Final Complete 01/17/25 01:00 Voided Urine Urine Culture - Final Complete 01/16/25 20:27 Blood Blood Culture - Preliminary NO GROWTH AFTER 48 HOURS OF INCUBATION. Resulted Problem List/Assessment/Plan Problem List/Assessment/Plan Assessment and plan Possible acute metabolic encephalopathy likely due to neurosyphilis/HIV # suspected neurosyphilis - Neurology has been consulted - Head CT: No acute intracranial abnormalities -negative for acute hepatitis panel - Blood cultures no growth so far - Urine cultures < 10,000 CFU -I CSF study revealed WBC 15, RBC 113, protein 129, mononuclear cell 90, polymorphonuclears 10, glucose 52. Pending culture report. Pending CSF IgG, CSF VDRL, cryptococcus, herpes, toxoplasma, VDRL, bacterial culture. Spoke to Dr. Terrance Bunn infectious Disease recommended to start ceftriaxone and vancomycin. - continue current conservative management #Rule out hyperviscosity secondary to TRT - Hb 17.6, HCT 54.5 - JUSTEN comprehensive panel #Polycythemia #Eosinophilia #Leukopenia - pending peripheral blood smear #Possible CRISTHIAN on CKD likely due to VM in/hemodynamically mediated - Monitor renal function - Avoid nephrotoxic drugs - IV fluids HIV - CD4 count: 524 ( 01/12/2025) - CD8 count: 618 ( 01/12/2025) - Continue Biktarvy 1 tablet daily Obesity, BMI 33.8 kg/m2 - I have counseled on healthy life style modifications Goals of care, Code status full code ; discussed with >15 minutes PUD prophylaxis: Not indicated DVT prophylaxis: Patient ambulating Plan discussed with Dr. Yepez , nursing staff, Total time spent on patient evaluation, chart review, assessment and plan, discussion discussion >35 minutes Plan discussed with: Patient, Other (RN) My Orders My Orders Orders - KIRILL SPEARS RESIDENT Procedure Category Date Status Time Csf Culture ALEXANDREA 01/19/25 In Process 09:20 Csf Culture W/ Gram ALEXANDREA 01/19/25 In Process Stain 09:20 Csf Hsv1/2 Dna Pcr LAB 01/19/25 In Process 09:20 Igg Synthesis Rate, LAB 01/19/25 In Process CSF 09:20 Vdrl, Cererbrospinal LAB 01/19/25 In Process Fluid 09:20 Viral Culture ALEXANDREA 01/19/25 Logged 10:15 Toxoplasma Gondii Igm LAB 01/19/25 Logged Antibody 10:15 Toxoplasma Gondii Igg LAB 01/19/25 Logged Antibody 10:15 Fungus Culture With ALEXANDREA 01/19/25 Logged Stain 10:15 Ceftriaxone 2gm/50ml PHA 01/19/25 In Process (Rocephin 2gm/50ml) 14:30 Vancomycin Per PHA 01/19/25 In Process Pharmacy 14:30 Out Of Bed Ambulate YOSEF 01/19/25 In Process 17:43 Date of Service: Jan 19, 2025 Billing Provider: CARLOS YEPEZ MD,[facility] RESIDENT Jan 19, 2025 18:05
[2025-01-19] MEDS: LORazepam 0.5 MG TAB PO ONE (22:15)
[2025-01-20] VITALS (7 sets, daily range): BP systolic 122–156; BP diastolic 60–88; PULSE 58–75; RESP 18–20; TEMP 97.5–97.9; O2SAT 93–95
[2025-01-20] MEDS: VANCOMYCIN 1GM/250ML KIT 250 ML IV SCH (05:39)
[2025-01-20 08:07] LABS: Immunoglobulin G, Serum 1288 mg/dL (603-1613)
--- NOTE | 2025-01-20 09:00 | DVHPNRES ---
Progress Note Date Seen: Jan 20, 2025 Resident Creating Document: KIRILL SPEARS RESIDENT Medical Necessity Reason Pt with a Central, PICC or Fol: No Subjective Review of Systems Mr. Champagne is a 44 year old male with PMHx of HIV on Biktarvy and low testosterone on TRT, who presents today with chief complaint of confusion. The patient was recently admitted stating he had malaise, decrease, in his memory, difficulty putting words together, and recurrent falls. At the time the patient left AMA, however, he presents today with the same symptoms. Additionally refers stuttering, generalized weakness, and jerking of his head and on occasion his entire body. On evaluation in the ED, vitals were stable. initial labs show leukopenia, elevated open and hematocrit, creatinine 1.35, UA without significant findings and UDS negative. Chest x-ray shows no acute cardiopulmonary disease. Head CT shows no acute intracranial abnormality. Patient was recently admitted at [facility] with the same complaint.Patient was seen by infectious disease, recommended for Viral load, treponema pallidum abs, RPR, toxoplasma abs. Wait for neurology evaluation to determine need for lumbar puncture to check for HIV, cryptococcus and other possible etiologies, Continue Bictarvy, follow-up with ID as an outpatien. Treponema pallidum reactive A. Plan is to do lumbar puncture for CSF study but patient left AMA. Prior medical history: HIV, and low testosterone Past surgical history: Denies Family history: Grandmother with ALS Allergies: Denies Social: Denies drug and tobacco use. Refers rare alcohol consumption. Patient was seen today at bedside, labs and chart reviewed. Patient had IR guided lumbar puncture done today. Initial CSF study revealed WBC 15, RBC 113, protein 129, mononuclear cell 90, polymorphonuclears 10, glucose 52. Pending culture report. Pending CSF IgG, CSF VDRL, cryptococcus, herpes, toxoplasma, VDRL, bacterial culture. Spoke to Dr. Terrance Bunn infectious Disease recommended to start ceftriaxone and vancomycin. CHF preliminary no growth so far. Objective vital signs Vital Sign Date Time Temp Pulse Resp B/P (MAP) Pulse Ox O2 Delivery O2 Flow Rate FiO2 01/20/25 08:35 97.7 58 18 139/85 (103) 93 97.7 01/19/25 20:00 Room Air* 0 21 Total Intake and Output 01/19/25 01/19/25 01/20/25 14:59 22:59 06:59 Intake Total 300 ml 1050 ml Balance 300 ml 1050 ml medications Current Medications Medications Dose Ordered Sig/Taisha Route Start Time Stop Time Status Last Admin Dose Admin Patient Own Medication 1 DAILY PO 01/17/25 10:00 01/20/25 08:34 1 Aspirin 81 mg DAILY PO 01/17/25 10:00 01/20/25 08:33 81 MG Atorvastatin Calcium 40 mg HS PO 01/17/25 22:00 01/19/25 22:15 40 MG Acetaminophen 650 mg Q6HP PRN PO 01/18/25 21:00 01/19/25 16:34 650 MG Lisinopril 2.5 mg DAILY PO 01/19/25 10:00 01/20/25 08:33 2.5 MG Ceftriaxone Sodium/Dextrose 50 ml @ 50 mls/hr Q12HR@09,21 IV 01/19/25 14:30 01/20/25 08:35 50 MLS/HR Vancomycin HCl 0 ml @ 0 mls/hr UD IV 01/19/25 14:30 Vancomycin HCl 250 ml @ 250 mls/hr Q12H IV 01/20/25 05:00 01/20/25 05:39 250 MLS/HR Examination General examination-awake, alert oriented HEENT- PEERLA, no acute nasal discharge Cardiovascular- S1-S2 audible, rate and rhythm regular, no murmur Respiratory- CTAB, no wheeze or rhonchi Gastrointestinal-nontender, bowel sound+. Nondistended Musculoskeletal-no acute joint swelling or tenderness or redness Lower extremity- no leg edema Neurological- cranial nerves intact, no acute dysarthria or dysphagia Psychiatry- denies depression or laboratory and microbiology Laboratory Tests 01/20/25 04:46 01/19/25 07:12 Test 01/19/25 07:12 Range/Units Serum Glucose 88 74-106 mg/dL Microbiology Date/Time Source Procedure Growth Status 01/19/25 09:15 Cerebral Spinal Fluid Gram Stain - Final Resulted 01/19/25 09:15 Cerebral Spinal Fluid CSF Culture & Gram Stain (Tube 2) M Pending Resulted 01/17/25 03:30 Nose MRSA Screen - Final Complete 01/17/25 01:00 Voided Urine Urine Culture - Final Complete 01/16/25 20:27 Blood Blood Culture - Preliminary NO GROWTH AFTER 72 HOURS OF INCUBATION. Resulted Problem List/Assessment/Plan Problem List/Assessment/Plan Assessment and plan Possible acute metabolic encephalopathy likely due to neurosyphilis/HIV # suspected neurosyphilis - Neurology has been consulted - Head CT: No acute intracranial abnormalities -negative for acute hepatitis panel - Blood cultures no growth so far - Urine cultures < 10,000 CFU -I CSF study revealed WBC 15, RBC 113, protein 129, mononuclear cell 90, polymorphonuclears 10, glucose 52. Pending culture report. Pending CSF IgG, CSF VDRL, cryptococcus, herpes, toxoplasma, VDRL, bacterial culture. Spoke to Dr. Terrance Bunn infectious Disease recommended to start ceftriaxone and vancomycin. - continue current conservative management #Rule out hyperviscosity secondary to TRT - Hb 17.6, HCT 54.5 - JUSTEN comprehensive panel #Polycythemia #Eosinophilia #Leukopenia - pending peripheral blood smear #Possible CRISTHIAN on CKD likely due to VM in/hemodynamically mediated - Monitor renal function - Avoid nephrotoxic drugs - IV fluids HIV - CD4 count: 524 ( 01/12/2025) - CD8 count: 618 ( 01/12/2025) - Continue Biktarvy 1 tablet daily Obesity, BMI 33.8 kg/m2 - I have counseled on healthy life style modifications Goals of care, Code status full code ; discussed with >15 minutes PUD prophylaxis: Not indicated DVT prophylaxis: Patient ambulating Plan discussed with Dr. Yepez , nursing staff, Total time spent on patient evaluation, chart review, assessment and plan, discussion discussion >35 minutes Plan discussed with: Patient, Other (RN) My Orders My Orders Orders - KIRILL SPEARS RESIDENT Procedure Category Date Status Time Csf Culture ALEXANDREA 01/19/25 In Process 09:20 Csf Culture W/ Gram ALEXANDREA 01/19/25 In Process Stain 09:20 Csf Hsv1/2 Dna Pcr LAB 01/19/25 In Process 09:20 Igg Synthesis Rate, LAB 01/19/25 In Process CSF 09:20 Vdrl, Cererbrospinal LAB 01/19/25 In Process Fluid 09:20 Viral Culture ALEXANDREA 01/19/25 Logged 10:15 Toxoplasma Gondii Igm LAB 01/19/25 Logged Antibody 10:15 Toxoplasma Gondii Igg LAB 01/19/25 Logged Antibody 10:15 Fungus Culture With ALEXANDREA 01/19/25 Logged Stain 10:15 Ceftriaxone 2gm/50ml PHA 01/19/25 In Process (Rocephin 2gm/50ml) 14:30 Vancomycin Per PHA 01/19/25 In Process Pharmacy 14:30 Out Of Bed Ambulate [facility] 01/19/25 In Process 17:43 Vancomycin 1gm/250ml PHA 01/20/25 In Process Kit 05:00 Vancomycin,Trough LAB 01/21/25 Verified 04:00 Vancomycin Per [facility] 01/21/25 In Process Pharmacy Protoc 05:00 Creatinine LAB 01/21/25 Verified 04:00 KIRILL SPEARS RESIDENT Jan 20, 2025 09:00
--- NOTE | 2025-01-20 09:32 | DVHPN2 ---
Progress Note - Dictate Date Seen: Jan 20, 2025 Medical Necessity Reason Pt with a Central, PICC or Fol: No Subjective Mr. Champagne is a 44 years old right-handed gentleman with a history of HIV infection, syphilis with three penicillin injection, he came to the hospital on 01/14/2025 with a chief company of confused, speech changes, and gait disturbance. I have seen and examined the patient, I have discussed with his nurse, he is doing fine, alert and fully oriented, he had mild headache last evening when he was elevated in the head UDS, 01/17/2025: Negative CSF, 01/19/2025: WBC: 15, RBC: 113, protein: 129, mono: 90%, Poly: 10%, glucose: 52, RPR 01/14/2025: 1:1 Treponema pallidum Ab, 01/14/2025: Active Hepatitis panel, 01/16/25: Negative WBC/HB/PLT/MCV, 01/17/2025: 2.9/6.35/166/75.6 % CD4, 01/12/25: 40.3 Absolute CD4, 01/12/25: 524 % CD8, 01/12/2025: 47.5 Absolute CD8, 01/12/2025: 618 ESR, 01/16/25: 2 BUN/CR, 01/17/2025: 14/1.32 GFR, 02/03/2025: 68 C-reactive protein, 01/16/25: 0.12 Vitamin B12, 01/11/2025: 462 TSH, 01/11/2025: 1.86 EEG, 01/18/2025: Normal CT head, 01/16/2025: No acute intracranial abnormality. MRI head, 01/12/2025: No acute cerebrovascular ischemia. vital signs Vital Sign Date Time Temp Pulse Resp B/P (MAP) Pulse Ox O2 Delivery O2 Flow Rate FiO2 01/20/25 08:35 97.7 58 18 139/85 (103) 93 97.7 01/19/25 20:00 Room Air* 0 21 Total Intake and Output 01/19/25 01/19/25 01/20/25 15:00 23:00 07:00 Intake Total 350 ml 1000 ml Balance 350 ml 1000 ml medications Current Medications Medications Dose Ordered Sig/Taisha Route Start Time Stop Time Status Last Admin Dose Admin Patient Own Medication 1 DAILY PO 01/17/25 10:00 01/20/25 08:34 1 Aspirin 81 mg DAILY PO 01/17/25 10:00 01/20/25 08:33 81 MG Atorvastatin Calcium 40 mg HS PO 01/17/25 22:00 01/19/25 22:15 40 MG Acetaminophen 650 mg Q6HP PRN PO 01/18/25 21:00 01/19/25 16:34 650 MG Lisinopril 2.5 mg DAILY PO 01/19/25 10:00 01/20/25 08:33 2.5 MG Ceftriaxone Sodium/Dextrose 50 ml @ 50 mls/hr Q12HR@09,21 IV 01/19/25 14:30 01/20/25 08:35 50 MLS/HR Vancomycin HCl 0 ml @ 0 mls/hr UD IV 01/19/25 14:30 Vancomycin HCl 250 ml @ 250 mls/hr Q12H IV 01/20/25 05:00 01/20/25 05:39 250 MLS/HR objective General: the patient is well developed and nourished. No acute distress. MENTAL STATUS: Subjective. SPEECH, LANGUAGE, HIGHER CORTICAL FUNCTION: no aphasia or dysathria. CRANIAL NERVES: Pupils are equal, round and reactive. EOMs full and conjugate. No nystagmus. Facial sensation intact in all three divisions bilaterally. Mandibular strength intact. Facial muscles symmetrical and strength intact. Tongue midline. No fasciculations or atrophy. SENSATION: Sensation to touch and pinprick is normal. MOTOR: Normal tone in the upper and lower extremity. Normal muscle bulk. No fasciculations. No abnormal movements or posturing. Muscle strength of the major groups in the extremities is 5/5. REFLEXES: Deep tendon reflexes symmetrical. No pathological reflexes. CEREBELLAR/COORDINATION: Finger to nose and heel to martinez are normal bilaterally. GAIT/STATION: deferred laboratory and microbiology Laboratory Tests 01/20/25 04:46 01/19/25 07:12 Test 01/19/25 07:12 Range/Units Serum Glucose 88 74-106 mg/dL Problem List Confusion, altered mental status, memory loss, not confirmed with my evaluation HIV Syphilis, to rule out neurosyphilis Intermittent speech difficulty, prolonged thinking process and whole-body jerking without ALOC, etiology unclear, rule out partial seizure/myoclonic seizure ? Nervousness Assessment/Plan Monitoring Supportive treatment Med surge CSF profile reports IV antibiotics DVT prophylax/pantoprazole Infectious disease follow-up Will ask Dr. Bunn Re: running fluorescent treponemal antibody absorption (FTA- ABS) and T. pallidum particle agglutination (TP-PA) on his CSF More recommendation per clinical course This medical document was created using an electronic medical record system with [employer] dictation system. Although this document has been carefully reviewed, there may still be some phonetic and typographical errors. These areas are purely typographical due to imperfections of the software programs, and do not reflect any compromise in the patient's medical care. Prognosis poor Plan discussed with: Patient, Other REBEKA LLAMAS MD Jan 20, 2025 09:32
[2025-01-20] MEDS ORDERED: CEPH250C PO (12:58)
[2025-01-20] MEDS ORDERED: PRED20TA2 PO (12:58)
[2025-01-20] MEDS ORDERED: BICT1TAB PO ×2 (13:36→14:53)
--- NOTE | 2025-01-20 14:19 | DVHDSRES ---
Discharge Summary Date of Admission Resident Creating Document: KIRILL SPEARS Jan 16, 2025 at 23:05 Date of Discharge: Jan 19, 2025 Labs/Diagnostic Data: Laboratory Results Test 01/20/25 13:04 01/20/25 04:46 01/19/25 09:15 01/19/25 07:12 Treponema pallidum Antibody Reactive (Negative) Creatinine 1.22 mg/dL (0.700-1.30) Glomerular Filtration Rate Calc 75 mL/min (>90) CSF Tube Number Tube 3 CSF Appearance Clear CSF WBC 15 CUMM (0-5) CSF RBC 113 CUMM (0-5) CSF Protein (Tube 2) 129.0 mg/dL (15-45) CSF Mononuclear Cells 90 % CSF Polymorphonuclear Cells 10 % CSF Glucose 52 mg/dL (40-70) Serum Immunoglobulin G 1288 mg/dL (603-1613) Serum Albumin (with CSF) 4.0 g/dL (4.1-5.1) White Blood Count 3.0 10^3/uL (4.4-10.8) Red Blood Count 7.33 10^6/uL (4.5-5.90) Hemoglobin 17.9 g/dL (13.5-17.5) Hematocrit 55.4 % (41.0-53.0) Mean Corpuscular Volume 75.5 fL (80.0-100.0) Mean Corpuscular Hemoglobin 24.4 pg (28.0-32.0) Mean Corpuscular Hemoglobin Concent 32.4 g/dL (32.0-36.0) Red Cell Distribution Width 18.2 % (11.8-14.3) Platelet Count 174 10^3/uL (140-450) Mean Platelet Volume 8.1 fL (6.9-10.8) Neutrophils (%) (Auto) 40.0 % (37.0-80.0) Lymphocytes (%) (Auto) 35.5 % (10.0-50.0) Monocytes (%) (Auto) 14.0 % (0.0-12.0) Eosinophils (%) (Auto) 9.9 % (0.0-7.0) Basophils (%) (Auto) 0.6 % (0.0-2.0) Neutrophils # (Auto) 1.2 10 ^3/uL (1.6-8.6) Lymphocytes # (Auto) 1.1 10 ^3/uL (0.4-5.4) Monocytes # (Auto) 0.4 10 ^3/uL (0-1.3) Eosinophils # (Auto) 0.3 10 ^3/uL (0-0.8) Basophils # (Auto) 0 10 ^3/uL (0-0.2) Nucleated Red Blood Cells 0.9 % Sodium Level 140 mmol/L (136-145) Potassium Level 4.8 mmol/L (3.5-5.1) Chloride Level 104 mmol/L (98-107) Carbon Dioxide Level 29 mmol/L (20-31) Anion Gap 7 (5-15) Blood Urea Nitrogen 18 mg/dL (9-23) BUN/Creatinine Ratio 12.9 (10.0-20.0) Serum Glucose 88 mg/dL (74-106) Calcium Level 8.8 mg/dL (8.7-10.4) Total Bilirubin 0.6 mg/dL (0.2-1.0) Aspartate Amino Transferase (AST) 26 U/L (13-40) Alanine Aminotransferase (ALT) 32 U/L (7-40) Alkaline Phosphatase 47 U/L (46-116) Total Protein 6.6 g/dL (5.7-8.2) Albumin 3.9 g/dL (3.2-4.8) Test 01/18/25 16:22 01/17/25 01:14 01/17/25 01:00 01/16/25 20:27 Prothrombin Time 11.4 sec (9.3-11.8) Prothrombin Time INR 1.08 (0.9-1.15) Activated Partial Thromboplast Time 30.8 SEC (24.5-34.5) Erythropoietin 13.6 mIU/mL (2.6-18.5) Anti-Nuclear Antibody Comment Comment (.) LUKAS-1 Antibody <0.2 AI (0.0-0.9) SS-A/Ro Antibody <0.2 AI (0.0-0.9) SS-B/La Antibody <0.2 AI (0.0-0.9) Sm Antibody <0.2 AI (0.0-0.9) ANCHOR TACKER Antibody <0.2 AI (0.0-0.9) Scl-70 (Scleroderma) Antibody <0.2 AI (0.0-0.9) Anti-Double Strand DNA Antibody 1 IU/mL (0-9) Chromatin Antibody <0.2 AI (0.0-0.9) Centromere B Antibody <0.2 AI (0.0-0.9) Free Hughes Light Chains, Quant 19.0 mg/L (3.3-19.4) Free Hughes/Lambda Light Chain Ratio 0.92 (0.26-1.65) Urine Color Light-yellow (Yellow) Urine Clarity Clear (Clear) Urine pH 5.0 (5.0-9.0) Urine Specific [employer] 1.016 (1.001-1.035) Urine Protein Negative (Negative) Urine Ketones Negative (Negative) Urine Blood Negative /uL (Negative) Urine Nitrite Negative (Negative) Urine Bilirubin Negative (Negative) Urine Urobilinogen Normal mg/dL (Negative) Urine Leukocyte Esterase Negative /uL (Negative) Urine RBC None seen /hpf (0 - 3) Urine Microscopic WBC < 1 /HPF (0-3) Urine Squamous Epithelial Cells Few /hpf (<5) Urine Bacteria None seen /hpf (None Seen) Urine Glucose Normal mg/dL (Normal) Urine Opiates Screen Neg (NEGATIVE) Urine Fentanyl Screen Neg (NEGATIVE) Urine Barbiturates Screen Neg (NEGATIVE) Urine Phencyclidine Screen Neg (NEGATIVE) Urine Amphetamines Screen Neg (NEGATIVE) Urine Benzodiazepines Screen Neg (NEGATIVE) Urine Cocaine Screen Neg (NEGATIVE) Urine Cannabinoids Screen Neg (NEGATIVE) Erythrocyte Sedimentation Rate 2 mm/hr (0-20) Lactic Acid Level 0.9 mmol/L (0.4-2.0) Phosphorus Level 3.7 mg/dL (2.4-5.1) Magnesium Level 2.1 mg/dL (1.6-2.6) C-Reactive Protein High Sensitivity 0.12 mg/dL (<1.0) Vitamin D 25-Hydroxy 31.2 ng/mL (30.0-100) Hepatitis A Antibody Total Negative (Negative) Hepatitis B Surface Antigen Negative (Negative) Hepatitis B Surface Antibody Negative (Negative) Hepatitis B Core Total Antibody Negative (Negative) Hepatitis C Antibody Negative (Negative) Other Laboratory Tests 01/20/25 04:46 01/19/25 07:12 Brief Hx & Hospital Course: Mr. Mar is a 44 year old male with PMHx of HIV on Biktarvy and low testosterone on TRT, who presents today with chief complaint of confusion. The patient was recently admitted stating he had malaise, decrease, in his memory, difficulty putting words together, and recurrent falls. At the time the patient left AMA, however, he presents today with the same symptoms. Additionally refers stuttering, generalized weakness, and jerking of his head and on occasion his entire body. On evaluation in the ED, vitals were stable. initial labs show leukopenia, elevated open and hematocrit, creatinine 1.35, UA without significant findings and UDS negative. Chest x-ray shows no acute cardiopulmonary disease. Head CT shows no acute intracranial abnormality. Patient was recently admitted at [facility] with the same complaint.Patient was seen by infectious disease, recommended for Viral load, treponema pallidum abs, RPR, toxoplasma abs. Wait for neurology evaluation to determine need for lumbar puncture to check for HIV, cryptococcus and other possible etiologies, Continue Bictarvy, follow-up with ID as an outpatien. Treponema pallidum reactive A. Plan is to do lumbar puncture for CSF study but patient left AMA.. During hospital course patient was continued on Biktarvy. Patient had lumbar puncture done by IR. Initial CSF study revealed WBC 15, RBC 113, protein 129, mononuclear cell 90, polymorphonuclears 10, glucose 52. Pending CSF IgG, CSF VDRL, cryptococcus, herpes, toxoplasma, VDRL, viral culture. Spoke to Dr. Terrance Bunn infectious Disease recommended to start ceftriaxone and vancomycin. CSF preliminary no growth so far. Patient was being followed by infectious disease and neurologist. Inpatient patient was treated with ceftriaxone vancomycin. As per Neurology-Neurosyphilis is considered unlikely given low-titer RPR (1:1) and clinical context. Neurology was requesting if fluorescent treponemal antibody absorption (FTA-ABS) and T. pallidum particle agglutination (TP-PA) CSF needed or not. As per Infectious Disease based on current report patient is unlikely to have nearest syphilis and do not required this labs based on recent other lab reports. Patient was advised to resume Biktarvy as per schedule. Infectious Disease cleared patient for discharge. Patient is being discharged home in hemodynamically stable condition. Patient refused for Biktarvy was sent to [facility] pharmacy as patient agreed upon. Patient was advised to follow up at the discharge clinic and also to follow up with the PCP. Patient was also advised to follow up with the infectious disease DrLizzy Bunn in 2 weeks with a report of CSF study for further care. Operations or Procedures [address] [address] Ph: [phone] DIAGNOSTIC IMAGING Diagnostic Imaging Report : [id number] Signed PATIENT: CLIVE MARCCT: [id number] UNIT: [id number] : 1980 LOC: ER ROOM / BED: / AGE / SEX: 44 / M ADM STATUS: REG ER SERVICE 14 ORDERING PHYSICIAN: MASOOD BRANCH MD PROCEDURE(s): HWOCT - HEAD WITHOUT CONTRAST REASON: ALOC / HIV ORDER NUMBER(s): [id number], ACCESSION NUMBER(s): [id number] EXAM: CT HEAD WITHOUT CONTRAST INDICATION: ALOC / HIV TECHNIQUE: CT of the head without intravenous contrast. Radiation Dose Information: CT Dose: CTDI volume is 57.24 mGy. Dose-length product is 915.81 mGy*cm The dose indicators for CT are the volume Computed Tomography (CT) Dose Index (CTDIvol) and the Dose Length Product (DLP), and are measured in units of mGy and mGy-cm, respectively. These indicators are not patient dose, but values generated from the CT scanner acquisition factors. The report includes radiation exposure data for exposures received during this examination. COMPARISON: MRI BRAIN HEAD WO CONTRAST on DOS: 01/12/25, CT HEAD WITHOUT CONTRAST on DOS: 01/11/25 FINDINGS: There is no evidence of acute intracranial hemorrhage, extra-axial collection, mass effect, midline shift, herniation or hydrocephalus. The ventricles, sulci and cisterns are age appropriate. The damico-white differentiation is intact. The visualized paranasal sinuses and mastoid air cells are clear. The surrounding soft tissues and osseous structures are unremarkable. IMPRESSION: No acute intracranial abnormality. ATED BY: RICARDO CLAYTON MD DICTATED DATE/TIME: 01/16/252046 SIGNED BY: RICARDO CLAYTON MD SIGNED DATE/TIME: 01/16/252046 CC: [place] [id number] Ph: [phone] DIAGNOSTIC IMAGING Diagnostic Imaging Report : [id number] Signed PATIENT: CLIVE MART: [id number] UNIT: [id number] : 1980 LOC: ER ROOM / BED: / AGE / SEX: 44 / M ADM STATUS: REG ER SERVICE 14 ORDERING PHYSICIAN: MASOOD BRANCH MD PROCEDURE(s): CXRP - CHEST PORTABLE REASON: SOB ORDER NUMBER(s): [id number], ACCESSION NUMBER(s): [id number] CHEST RADIOGRAPH Indication: SOB Technique: Single frontal view of the chest was obtained Comparison: XY CHEST PORTABLE on DOS: 01/11/25 FINDINGS: Lines and Tubes: None Lungs: No focal consolidation. Pleura: No effusion. No pneumothorax. Cardiomediastinal contours: Unremarkable Bones: No acute osseous abnormality. IMPRESSION: 1. No acute cardiopulmonary disease. 2. No significant change from 01/11/2025 ATED BY: KANNAN CARRIZALES Jr., DO DICTATED DATE/TIME: 01/16/252047 SIGNED BY: KANNAN CARRIZALES Jr., DO SIGNED DATE/TIME: 01/16/252047 CC: [place] [id number] Ph: [phone] DIAGNOSTIC IMAGING Diagnostic Imaging Report : [id number] Signed PATIENT: CLIVE MARCCT: [id number] UNIT: [id number] : 1980 LOC: [facility] ROOM / BED: [facility] A AGE / SEX: 44 / M ADM STATUS: ADM IN SERVICE 7 ORDERING PHYSICIAN: MEREDITH SKY MD PROCEDURE(s): LMPC - LUMBAR PUNCTURE REASON: LP ORDER NUMBER(s): [id number], ACCESSION NUMBER(s): [id number] LUMBAR PUNCTURE HISTORY: LP PROCEDURE/FINDINGS: Informed consent was obtained. Risks versus benefits were discussed. Patient understands and consents to the procedure. An initial timeout was conducted correctly identifying the patient with the desired procedure of diagnostic lumbar puncture. Lab values were reviewed and found to be acceptable. Fluoroscopy time : 0.2 minutes Once a suitable site for lumbar puncture was determined fluoroscopically, the overlying skin was prepped and draped in the usual sterile fashion and anesthetized with 1% lidocaine. the thecal sac was punctured at the L3-L4 level using a 22 gauge spinal needle with expression of clear cerebral spinal fluid. The pressure was not elevated . I was only able to collect 5 cc of clear CSF into 4 tubes and submitted to the laboratory for analysis. The patient tolerated the procedure well without any immediate complications and transferred to ambulatory for routine recovery. IMPRESSION: 1. Diagnostic lumbar puncture. Laboratory analysis pending. ATED BY: MEREDITH SKY MD DICTATED DATE/TIME: 01/19/25952 SIGNED BY: MEREDITH SKY MD SIGNED DATE/TIME: 01/19/25952 CC: Condition at Discharge: Stable Final Diagnosis/Problems List #Possible acute metabolic encephalopathy likely due to neurosyphilis/HIV# suspected neurosyphilis#Rule out hyperviscosity secondary to TRT#Polycythemia#Eosinophilia #Leukopenia#Possible CRISTHIAN on CKD likely due to VM in/hemodynamically mediated #HIV#Obesity Discharge Disposition: Home Discharge Instruct/Medications Diet: Regular Activity: No Restrictions, As Tolerated Follow Up/Referral: Please follow up in the discharge clinic in 1-2 weeks Please follow up with the primary care physician in 1-2 weeksPlease follow up with the infectious disease doctor Dr. Terrance Bunn in 2weeks with a report of CSF study Medications: Please resume home medications Scheduled Nxcyjsavnpq-Qfsbnjogcygkn-Pzbx (Biktarvy 50-200-25 mg), 1 TAB PO DAILY Scheduled PRN Lorazepam (Ativan), 0.5 MG PO DAILY PRN, (Reported) Lorazepam (Ativan Tablet), 1 TAB PO DAILY PRN, (Reported) Miscellaneous Medications Ewltvhommkj-Bswgdasangmoy-Fhea (Biktarvy 50-200-25 mg), 1 TAB PO, (Reported) Discontinued Medications Lorazepam (Ativan), 0.5 MG PO DAILY PRN, (Reported) Lorazepam (Ativan), 0.5 MG PO DAILY PRN, (Reported) Lorazepam (Ativan), 0.5 MG PO DAILY PRN, (Reported) Discharge Statement: "Patient was advised to return to the ER or call 911 if any headaches, dizziness, shortness of breath, chest pain, abdominal pain, bleeding, fevers, or worsening of medical condition. Patient was counseled about treatment plan, medications, possible side effects, patientverbalized understanding. All questions were answered to the best of my ability. This discharge took greater then 30 minutes in planning, reviewing documentation, counseling the patient, and discussing with other team members." ASSESSMENT ASSESSMENT Assessment #Possible acute metabolic encephalopathy likely due to neurosyphilis/HIV# suspected neurosyphilis#Rule out hyperviscosity secondary to TRT#Polycythemia#Eosinophilia #Leukopenia#Possible CRISTHIAN on CKD likely due to VM in/hemodynamically mediated #HIV#Obesity Date of Service: Jan 20, 2025 Billing Provider: CARLOS JONES MD, MOHAMMED RESIDENT Jan 20, 2025 14:19
[2025-01-20] MEDS ORDERED: LORA-655 PO ×2 (14:20→14:55)
[2025-01-20] MEDS ORDERED: LORA-1121 PO (15:08)
--- NOTE | 2025-01-20 18:10 | DVHPN2 ---
Consult Progress Note Objective vital signs Vital Sign Date Time Temp Pulse Resp B/P (MAP) Pulse Ox O2 Delivery O2 Flow Rate FiO2 01/20/25 17:07 97.9 75 18 156/88 (110) 94 97.9 01/20/25 08:00 Room Air* 0 21 Total Intake and Output 01/19/25 01/19/25 01/20/25 15:00 23:00 07:00 Intake Total 350 ml 1000 ml Balance 350 ml 1000 ml medications Current Medications Medications Dose Ordered Sig/Taisha Route Start Time Stop Time Status Last Admin Dose Admin Patient Own Medication 1 DAILY PO 01/17/25 10:00 01/20/25 08:34 1 Aspirin 81 mg DAILY PO 01/17/25 10:00 01/20/25 08:33 81 MG Atorvastatin Calcium 40 mg HS PO 01/17/25 22:00 01/19/25 22:15 40 MG Acetaminophen 650 mg Q6HP PRN PO 01/18/25 21:00 01/19/25 16:34 650 MG Lisinopril 2.5 mg DAILY PO 01/19/25 10:00 01/20/25 08:33 2.5 MG Ceftriaxone Sodium/Dextrose 50 ml @ 50 mls/hr Q12HR@09,21 IV 01/19/25 14:30 01/20/25 08:35 50 MLS/HR Vancomycin HCl 0 ml @ 0 mls/hr UD IV 01/19/25 14:30 Vancomycin HCl 250 ml @ 250 mls/hr Q12H IV 01/20/25 05:00 01/20/25 05:39 250 MLS/HR laboratory and microbiology Laboratory Tests 01/20/25 04:46 01/19/25 07:12 Test 01/19/25 07:12 Range/Units Serum Glucose 88 74-106 mg/dL NELLY FISHER MD Jan 20, 2025 18:10
--- NOTE | 2025-01-20 18:14 | DVHPN2 ---
Consult Progress Note Date Seen: Jan 19, 2025 Subjective Patient reports: Feels better (sp lumbar puncture) Objective vital signs Vital Sign Date Time Temp Pulse Resp B/P (MAP) Pulse Ox O2 Delivery O2 Flow Rate FiO2 01/20/25 17:07 97.9 75 18 156/88 (110) 94 97.9 01/20/25 08:00 Room Air* 0 21 Total Intake and Output 01/19/25 01/19/25 01/20/25 15:00 23:00 07:00 Intake Total 350 ml 1000 ml Balance 350 ml 1000 ml medications Current Medications Medications Dose Ordered Sig/Taisha Route Start Time Stop Time Status Last Admin Dose Admin Patient Own Medication 1 DAILY PO 01/17/25 10:00 01/20/25 08:34 1 Aspirin 81 mg DAILY PO 01/17/25 10:00 01/20/25 08:33 81 MG Atorvastatin Calcium 40 mg HS PO 01/17/25 22:00 01/19/25 22:15 40 MG Acetaminophen 650 mg Q6HP PRN PO 01/18/25 21:00 01/19/25 16:34 650 MG Lisinopril 2.5 mg DAILY PO 01/19/25 10:00 01/20/25 08:33 2.5 MG Ceftriaxone Sodium/Dextrose 50 ml @ 50 mls/hr Q12HR@09,21 IV 01/19/25 14:30 01/20/25 08:35 50 MLS/HR Vancomycin HCl 0 ml @ 0 mls/hr UD IV 01/19/25 14:30 Vancomycin HCl 250 ml @ 250 mls/hr Q12H IV 01/20/25 05:00 01/20/25 05:39 250 MLS/HR laboratory and microbiology Laboratory Tests 01/20/25 04:46 01/19/25 07:12 Test 01/19/25 07:12 Range/Units Serum Glucose 88 74-106 mg/dL Problem List/Assessment/Plan Problem List/Assessment/Plan ASSESSMENT AND PLAN: ID Problem List: -HIV infection; previously on Biktarvy (bictegravir/emtricitabine/tenofovir alafenamide); off therapy for several months due to lapsed copay assistance/cost -Acute kidney injury (Cr 1.51) -Daily headaches and insomnia -Confusion (presenting symptom) -Shortness of breath; generalized weakness; bilateral lower extremity weakness (4/5) and spasms; neuropathic symptoms in lower extremities -Recent sinus infection (~2 weeks ago) -Prior syphilis (previously treated); 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 Afebrile with WBC 4.7; influenza A/B and COVID-19 negative; lactic acid 1.1. Creatinine 1.51 (CRISTHIAN). Neurologic exam nonfocal aside from mild symmetric lower extremity weakness; sensation intact. Given the afebrile state, normal WBC, and lucid exam, there is low overall suspicion for acute bacterial meningitis. Differential includes opportunistic and non- opportunistic TITLE I COORDINATOR processes (e.g., cryptococcal disease, toxoplasmosis, viral etiologies), though risk is tempered by CD4 >200. Neurosyphilis is considered unlikely given low-titer RPR (1:1) and clinical context. Plan -Diagnostics (serum): will fu on pending CSF studies will fu on pending HIV viral, cryptococcal serum, CMV ab, -Antimicrobials: -start biktarvy - start vancomycin and ceftriaxone 2gq12 for presumed bacterial meningitis under prelim CSF bacterial cultures return given elevated WBC and protein in CSF -HIV therapy: Isolation Precautions: Not provided in transcript. Plan is subject to change pending incorporation of new diagnostic results. Electronically signed by: Nelly Bunn MD, 01/20/2025 Physical Exam: General: NAD Neck: Supple. No masses. HEENT: PERRL. Normal lids and conjunctiva. Moist mucous membranes. Oropharynx without lesions, exudates, or excessive erythema. Normal appearance of the external aspects of the nose and ears. Heart: Regular rhythm, normal rate. No murmur. No lower extremity edema. Lungs: Normal respiratory effort. Clear to auscultation bilaterally. No wheezes. No crackles. Abdomen: Soft. Non-tender. Non-distended. No masses or abdominal hernia. Msk: No digital cyanosis. 4/5 strength in bilateral lower extremities; normal strength in upper extremities. Normal tone. Skin: Warm and dry, no rashes. Neuro: Alert and oriented x4. No facial droop or slurred speech. Extra-ocular movements intact. Pupils reactive. Sensation intact to soft touch in all 4 limbs. No focal deficits on exam. Psych: Appropriate mood. Full affect. Oriented to person, place, time, and situation. Plan discussed with: Patient NELLY BUNN MD Jan 20, 2025 18:14
--- NOTE | 2025-01-20 18:17 | DVHPN2 ---
Consult Progress Note Date Seen: Jan 20, 2025 Subjective Patient reports: Feels better (no diarrhea or rash. no headaches after LP, no spasm of leg) Objective vital signs Vital Sign Date Time Temp Pulse Resp B/P (MAP) Pulse Ox O2 Delivery O2 Flow Rate FiO2 01/20/25 17:07 97.9 75 18 156/88 (110) 94 97.9 01/20/25 08:00 Room Air* 0 21 Total Intake and Output 01/19/25 01/19/25 01/20/25 15:00 23:00 07:00 Intake Total 350 ml 1000 ml Balance 350 ml 1000 ml medications Current Medications Medications Dose Ordered Sig/Taisha Route Start Time Stop Time Status Last Admin Dose Admin Patient Own Medication 1 DAILY PO 01/17/25 10:00 01/20/25 08:34 1 Aspirin 81 mg DAILY PO 01/17/25 10:00 01/20/25 08:33 81 MG Atorvastatin Calcium 40 mg HS PO 01/17/25 22:00 01/19/25 22:15 40 MG Acetaminophen 650 mg Q6HP PRN PO 01/18/25 21:00 01/19/25 16:34 650 MG Lisinopril 2.5 mg DAILY PO 01/19/25 10:00 01/20/25 08:33 2.5 MG Ceftriaxone Sodium/Dextrose 50 ml @ 50 mls/hr Q12HR@09,21 IV 01/19/25 14:30 01/20/25 08:35 50 MLS/HR Vancomycin HCl 0 ml @ 0 mls/hr UD IV 01/19/25 14:30 Vancomycin HCl 250 ml @ 250 mls/hr Q12H IV 01/20/25 05:00 01/20/25 05:39 250 MLS/HR laboratory and microbiology Laboratory Tests 01/20/25 04:46 01/19/25 07:12 Test 01/19/25 07:12 Range/Units Serum Glucose 88 74-106 mg/dL Problem List/Assessment/Plan Problem List/Assessment/Plan ASSESSMENT AND PLAN: ID Problem List: -HIV infection; previously on Biktarvy (bictegravir/emtricitabine/tenofovir alafenamide); off therapy for several months due to lapsed copay assistance/cost -Acute kidney injury (Cr 1.51) -Daily headaches and insomnia -Confusion (presenting symptom) -Shortness of breath; generalized weakness; bilateral lower extremity weakness (4/5) and spasms; neuropathic symptoms in lower extremities -Recent sinus infection (~2 weeks ago) -Prior syphilis (previously treated); 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 Afebrile with WBC 4.7; influenza A/B and COVID-19 negative; lactic acid 1.1. Creatinine 1.51 (CRISTHIAN). Neurologic exam nonfocal aside from mild symmetric lower extremity weakness; sensation intact. Given the afebrile state, normal WBC, and lucid exam, there is low overall suspicion for acute bacterial meningitis. Differential includes opportunistic and non- opportunistic [employer] processes (e.g., cryptococcal disease, toxoplasmosis, viral etiologies), though risk is tempered by CD4 >200. Neurosyphilis is considered unlikely given low-titer RPR (1:1) and clinical context. 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 resuming biktarvy will help recover of this. please ensure patient has 90 days supply of daily biktarvy prior to discharge. will fu on pending CSF labs to treat any indolent meningitis as outpatient. -HIV therapy: Isolation Precautions: Not provided in transcript. Plan is subject to change pending incorporation of new diagnostic results. Electronically signed by: Nelly Bunn MD, 01/20/2025 Physical Exam: General: NAD Neck: Supple. No masses. HEENT: PERRL. Normal lids and conjunctiva. Moist mucous membranes. Oropharynx without lesions, exudates, or excessive erythema. Normal appearance of the external aspects of the nose and ears. Heart: Regular rhythm, normal rate. No murmur. No lower extremity edema. Lungs: Normal respiratory effort. Clear to auscultation bilaterally. No wheezes. No crackles. Abdomen: Soft. Non-tender. Non-distended. No masses or abdominal hernia. Msk: No digital cyanosis. 4/5 strength in bilateral lower extremities; normal strength in upper extremities. Normal tone. Skin: Warm and dry, no rashes. Neuro: Alert and oriented x4. No facial droop or slurred speech. Extra-ocular movements intact. Pupils reactive. Sensation intact to soft touch in all 4 limbs. No focal deficits on exam. Psych: Appropriate mood. Full affect. Oriented to person, place, time, and situation. Plan discussed with: Patient NELLY BUNN MD Jan 20, 2025 18:17
[2025-01-22 02:06] LABS: HSV-1 DNA CSF Negative (Negative); HSV-2 DNA Negative (Negative)
== END 2025-01-20 18:02 | disposition home or self-care (01) | DRG 70 ==
LOC: ER 17:49 → OVERFLOW 23:05 → WEST WING 01-17 02:36
PROVIDERS: ADMIT Student in an Organized Health Care Education/Training Program; ATTEND Student in an Organized Health Care Education/Training Program
PROC: 009U3ZZ Drainage of Spinal Canal, Percutaneous Approach (ICD-10-PCS; principal; 2025-01-19)
PROC: B01B1ZZ Fluoroscopy of Spinal Cord using Low Osmolar Contrast (ICD-10-PCS; 2025-01-19)
DX: G93.41 Metabolic encephalopathy (principal); N17.0 Acute kidney failure with tubular necrosis; A52.3 Neurosyphilis, unspecified; Z68.33 Body mass index [BMI] 33.0-33.9, adult; D72.819 Decreased white blood cell count, unspecified; N18.9 Chronic kidney disease, unspecified; Z20.822 Contact with and (suspected) exposure to COVID-19; E66.9 Obesity, unspecified; D75.1 Secondary polycythemia; D72.10 Eosinophilia, unspecified; G47.00 Insomnia, unspecified; Z83.3 Family history of diabetes mellitus; Z82.49 Family history of ischemic heart disease and other diseases of the circulatory system; Z79.899 Other long term (current) drug therapy
CPT/HCPCS: 36415; 62272; 70450; 71045; 80048; 80053; 80307; 81001; 82042; 82306; 82565; 82668; 82784; 82945; 83516; 83521; 83605; 83735; 84100; 84157; 85025; 85610; 85652; 85730; 86141; 86225; 86235; 86592; 86704; 86706; 86708; 86780; 86803; 87040; 87070; 87081; 87086; 87205; 87340; 87529; 87899; 89051; 95819; 96360; G0378; J2003